=== PATIENT | female | born 1970 | race African-American/Black ===

== ENCOUNTER → 2016-04-21 | Outpatient (CLI) | payer MEDICARE, OTHER ==
[2016-04-21 13:13] LABS: ALT 39 U/L (9-52); AST 25 U/L (14-36); Alkaline Phosphatase 142 U/L (38-126); Anion Gap 11 mmol/L; Blood Urea Nitrogen 11 mg/dL (7-17); Calcium 9.6 mg/dL (8.4-10.2); Carbon Dioxide 23 mmol/L (22-30); Chloride 105 mmol/L (98-107); Glucose 162 mg/dL (74-99); Non-African American GFR(MDRD) >60 (>60 ml/min/1.73 sqM); Potassium 4.5 mmol/L (3.5-5.1); Sodium 139 mmol/L (137-145); Total Bilirubin 0.7 mg/dL (0.2-1.3); Total Protein 7.3 g/dL (6.3-8.2)
[2016-04-21 13:23] LABS: CH 28.9; CHCM 31.2; HCT 46.4 % (34.0-46.0); HDW 2.48; HGB 13.9 gm/dL (11.4-16.0); Hypochromasia Slight; MCH 27.9 pg (25.0-35.0); Mean Platelet Volume 8.7; RBC 4.99 m/uL (3.80-5.40); WBC 10.3 k/uL (3.8-10.6)
--- NOTE | 2016-04-21 14:24 | XR ---
EXAMINATION TYPE: XR chest 2V DATE OF EXAM: 04/21/2016 2:13 PM COMPARISON: 03/26/2014 HISTORY: CHF FINDINGS: The lungs are clear and there is no pneumothorax, pleural effusion, or focal pneumonia. Heart is enl arged. No overt failure. Mild hypertrophic change of the spine. IMPRESSION: 1. No acute process.
== END | disposition home or self-care (01) ==
LOC: LABWHC1 12:20
PROVIDERS: ATTEND Internal Medicine Cardiovascular Disease
DX: I10 Essential (primary) hypertension (principal); R06.02 Shortness of breath
CPT/HCPCS: 36415; 71020; 80053; 83704; 83880; 84439; 84443; 85027

== ENCOUNTER → 2016-04-21 | Outpatient (CLI) | payer MEDICARE, OTHER ==
--- NOTE | 2016-04-21 18:16 | WWHP ---
DATE OF DICTATION: 04/21/2016 CHIEF COMPLAINT: The patient is here for her routine gynecologic exam and mammogram. HISTORY OF PRESENT ILLNESS: This is a 46-year-old G1, P1 with an LMP of 2011. She is status post endometrial ablation in 2011 and states she has been without periods since then. She states that even though she has been amenorrheic, she still has pains that seem to occur about monthly, like her menstrual pains of the past. She has tried Pamprin and Midol. She states they feel about the same as the pains she had prior to the ablation. PAST MEDICAL HISTORY: 1. Rheumatoid arthritis. 2. Fibromyalgia. 3. Congestive heart failure. 4. Chronic hypertension. 5. Type 2 diabetes. 6. Elevated cholesterol. 7. Neuropathy; this involves the knees. 8. Degenerative disc disease of the back and neck. 9. Depression. 10. Anxiety. 11. Thyroid problems. Dr. Romo is her primary care physician. MEDICATIONS: 1. Flexeril 10 mg daily. 2. Lyrica 100 mg b.i.d. 3. Furosemide 20 mg daily. 4. Enalapril 5 mg daily. 5. Prednisone 10 mg b.i.d. 6. Carvedilol 6.25 mg b.i.d. ALLERGIES: TETRACYCLINE, which caused a rash. PAST SURGICAL HISTORY: 1. Endometrial ablation in 2011. 2. Laparoscopic oophorectomy in 2011. PAST OB HISTORY: Vaginal delivery x1. 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 She has no other history of STDs. She has been amenorrheic since her endometrial ablation in 2011. SOCIAL HISTORY: She admits to smoking about 8 cigarettes per day and denies drug and alcohol use. She is single. She broke up with her boyfriend in March 2016 and is not seeing anybody at this time. She is considered disabled. FAMILY HISTORY: Grandmother had breast cancer. Father had gastric cancer. Mother and grandmother had [place]. Several family members have elevated cholesterol, thyroid problems and heart disease. REVIEW OF SYSTEMS: She states her weight has fluctuated by about +/- 5 pounds over the past several months. She states she previously weighed 187 pounds but has gained weight over the last 2 years. She denies respiratory, cardiac or GI problems. PHYSICAL EXAM: Blood pressure 138/89. Height 5 feet 9 inches. Weight 224 pounds. Temperature 98.2. Pulse 92. This is a well-developed, heavyset black female who is alert and oriented x3, in no acute distress. HEENT is within normal limits. NECK: Supple without mass or thyromegaly. CHEST AND LUNGS: Clear to auscultation. HEART: Regular rate and rhythm. Breasts are without mass or discharge. Axillary exam is negative for adenopathy. BACK: Negative for CVA tenderness. ABDOMEN: Obese, soft, nontender, without palpable masses. PELVIC EXAM: Normal external genitalia. Vagina appears fairly well-estrogenized without lesions. The cervix is not discretely visualized even with a larger speculum. There is a dimple in the back of the vagina which was thought to possibly represent an atrophic cervix or a cervix that had previous conization, although she denies any surgery on her cervix. She also denies hysterectomy. There is no unusual discharge and no significant prolapse. BIMANUAL EXAM: The cervix is not palpable and the uterus is not palpable. This seems to be somewhat limited secondary to her size. There is mild tenderness in the area of the bladder with bimanual examination. There are no palpable masses in this area. There is no significant tenderness to the adnexal areas on the side. Rectovaginal exam is negative for mass or tenderness and is negative for occult blood. EXTREMITIES: Nontender. IMPRESSION: 1. A 46-year-old female with a history of amenorrhea since her endometrial ablation in 2011. 2. Limited pelvic exam with either poor visualization of the cervix or possible abnormal appearance of cervix, which may be flush with the back of the vagina secondary to some type of previous procedure. 3. Non-palpable uterus. This may be secondary to her size. 4. Pelvic pain which is cyclic and pelvic tenderness in the area of the bladder. PLAN: 1. Pap smear was performed from the dimple in the back of the vagina which was felt to possibly represent the cervix. 2. Self breast examination was discussed. 3. Mammogram will be done today. 4. Pelvic ultrasound will be scheduled to further evaluate her pelvic pain and tenderness and to see if the uterus is visualized and its position. If no uterus is visualized, we will obtain her operative report from her endometrial ablation to see if anything else was done at that time. 5. Anaprox DS one p.o. b.i.d. p.r.n. for pelvic pains. 6. If she is having significant pelvic monthly pains, we will consider referring her back to her original property worker who did her ablation for further evaluation. 7. She will return in one year and p.r.n.
--- NOTE | 2016-04-23 10:15 | MM ---
Reason for exam: screening (asymptomatic). Last mammogram was performed 3 years and 8 months ago. History: Family history of breast cancer in maternal grandmother at age 86. Took hormonal contraceptives for 6 years beginning at age 18. Physical Findings: A clinical breast exam by your physician is recommended on an annual basis and results should be correlated with mammographic findings. MG 3D Screening Mammo W/Cad Bilateral CC and MLO view(s) were taken. Prior study comparison: August 05, 2012, bilateral digital screening mammo w/CAD. July 29, 2011, bilateral digital screening mammo w/CAD. There are scattered fibroglandular densities. No significant changes when compared with prior studies. ASSESSMENT: Benign, BI-RAD 2 RECOMMENDATION: Routine screening mammogram of both breasts in 1 year.
--- NOTE | 2016-05-06 07:14 | WWPLE ---
May 05, 2016 RE: Tamera Levi Dear Dr. Romo; I had the pleasure of seeing your patient, Tamera Levi in the office on 04/21/2016. As you know, she is a 46-year-old female who presented to see me for her routine gynecologic exam. She has been amenorrheic since an endometrial ablation in 2011. Her gynecologic exam was somewhat limited in that I was not able to palpate a uterus. This may be secondary to her size since she is overweight. She will be undergoing a pelvic ultrasound to further evaluate her and some cyclic pelvic pain that she has experienced in the area of the bladder. Pap smear was negative but did show a shift in the vaginal venkata. She denies any symptoms of bacterial vaginosis at this time. Her mammogram was benign. Thank you for allowing me to participate in the care of your patient. Please do not hesitate to call if you have any questions. Sincerely, Evon Moreau. PAMELA
== END | disposition home or self-care (01) ==
LOC: WWCWWP 12:35
PROVIDERS: ATTEND Obstetrics & Gynecology
DX: Z12.31 Encounter for screening mammogram for malignant neoplasm of breast (principal)
CPT/HCPCS: 77063; G0202

== ENCOUNTER → 2016-05-14 | Outpatient (CLI) | payer MEDICARE, OTHER ==
--- NOTE | 2016-05-14 08:54 | MR ---
PRE AND POSTCONTRAST ENHANCED MRI OF THE BRAIN: CLINICAL HISTORY: R43.0 parageusia, lost sense of taste, CONTRAST: 20 ML Multihance Multiplanar and multispin-echo imaging of the brain was performed both before and after the administr ation of contrast. The ventricles, basal cisterns and sulci overlying the cerebral convexities are within normal limits. There is no evidence for midline shift or mass effect. Acute intracranial hemorrhage or extra-axial collection is not evident. Noted are scattered nonspecific foci of increased signal within the deep and subcortical white matter of both cerebral hemispheres estimated at between 15 and 20 bilaterally. Differential diagnosis poss ibilities include Demyelinating process, sequela of chronic migraine headaches, Lyme's disease, vascu litis among other possibilities. Correlate clinically. Following contrast administration, there is no evidence for pathologic enhancement or enhancing mass. mastoid air cells are well-aerated.Moderate opacification right maxillary sinus. IMPRESSION: 1. Nonspecific scattered foci of increased signal as discussed. 2. Moderate opacification right maxillary sinus.
== END | disposition home or self-care (01) ==
LOC: RADMRIMAIN 07:34
PROVIDERS: ATTEND Otolaryngology
DX: J34.89 Other specified disorders of nose and nasal sinuses (principal); R43.2 Parageusia
CPT/HCPCS: 70553; A9577

== ENCOUNTER → 2016-05-25 | Outpatient (CLI) | payer MEDICARE, OTHER ==
--- NOTE | 2016-05-25 09:54 | US ---
EXAMINATION TYPE: US pelvis complete transvag DATE OF EXAM: 05/25/2016 9:26 AM COMPARISON: Previous study dated 11/03/2011. CLINICAL HISTORY: R10.2 Pelvic pain. Ablation 2011, history of uterine fibroid TECHNIQUE: Transvaginal (TV) and Transabdominal (TA) Date of LMP: 2011 EXAM MEASUREMENTS: Uterus: unable to visualize Endometrial Stripe: unable to visualize Right Ovary: unable to visualize Left Ovary: unable to visualize TECHNOLOGIST IMPRESSION: 1. Uterus: unable to visualize, patient denies hysterectomy vaginal cuff = 1.1cm 2. Endometrium: unable to visualize 3. Right Ovary: unable to visualize 4. Left Ovary: unable to visualize 5. Bilateral Adnexa: appears wnl No cystic or solid lesion is seen. IMPRESSION: The uterus and ovaries are not visualized. The patient denies hysterectomy. Please correlate clinical ly.
== END | disposition home or self-care (01) ==
LOC: RADUSWWP 08:57
PROVIDERS: ATTEND Obstetrics & Gynecology
DX: R10.2 Pelvic and perineal pain (principal)
CPT/HCPCS: 76830; 76856

== ENCOUNTER 2016-09-18 09:13 | Day surgery (SDC) | payer MEDICARE, OTHER ==
[2016-09-10 14:03] VITALS: BMI 36.9
[~2016-09-18 09:13] MED LIST: LACTATED RINGERS 1,000 ML IV SCH; LIDOCAINE 1% 20 ML VIAL (10MG/ML) FOR IV START INTRADERMA PRN
[2016-09-18 09:56] VITALS: RESP 18; TEMP 98
[2016-09-18] MEDS ORDERED: LACTATED RINGERS 1,000 ML IV ONE (09:58)
[2016-09-18 10:04] LABS: Glucose,Whole Blood 126 mg/dL (75-99)
[2016-09-18] MEDS ORDERED: PROPOFOL 10 MG/ML 20 ML VIAL IV ONE (10:12)
[2016-09-18] MEDS ORDERED: LIDOCAINE 1% INJ 10MG/ML (20 ML MDV) ONE (10:12)
--- NOTE | 2016-09-18 10:25 | P.PCN ---
Date of Procedure: 09/18/16 Preoperative Diagnosis: Postoperative Diagnosis: Procedure(s) Performed: BRIEF HISTORY: Patient is a 46-year-old, pleasant, female, scheduled for an upper endoscopy as a part of evaluation of long-standing history of GERD of several years duration. Presently on Protonix 40 mg daily and is doing good. She is scheduled for an upper endoscopy to rule out complicated reflux disease. PROCEDURE PERFORMED: Esophagogastroduodenoscopy with biopsy. PREOPERATIVE DIAGNOSIS: Long-standing history of GERD. IV sedation per anesthesia. PROCEDURE: After informed consent was obtained, the patient was brought into the endoscopy unit. IV sedation was administered by Anesthesia under continuous monitoring. Initially the Olympus GIF-140 video endoscope was inserted into the mouth. Esophagus intubated without any difficulty. It was gradually advanced into the stomach and duodenum and carefully examined. The bulb had scattered erosions and the second part of the duodenum appeared normal. The scope at this time was withdrawn to the stomach, adequately insufflated with air, and upon careful examination, mucosa of the antrum, had linear areas of erythema consistent with gastritis and biopsies were done from this area. The body, cardia and the fundus appeared normal. The scope was then withdrawn into the esophagus. The GE junction was located at 39 cm from the incisors. The esophagus appeared normal. There were no erosions or ulcerations seen and the patient tolerated the procedure well. IMPRESSION: 1. Mild antral gastritis. 2. Scattered erosions in the duodenum consistent with duodenitis. RECOMMENDATIONS: The findings of this examination were discussed with the patient as well as her family. She was advised to continue with Protonix 40 mg daily and follow antireflux measures.. Implants: Indications for Procedure: Operative Findings: Description of Procedure:
[2016-09-18 10:59] VITALS: BP 122/80; PULSE 78
[2016-09-18 11:21] LABS: Glucose,Whole Blood 137 mg/dL (75-99)
== END 2016-09-18 11:15 | disposition home or self-care (01) ==
LOC: ORWHC2ENDO 09:13
PROVIDERS: ATTEND Internal Medicine Gastroenterology
DX: K21.0 Gastro-esophageal reflux disease with esophagitis (principal); M06.9 Rheumatoid arthritis, unspecified; K29.50 Unspecified chronic gastritis without bleeding; K29.80 Duodenitis without bleeding; I50.9 Heart failure, unspecified; I10 Essential (primary) hypertension; E11.9 Type 2 diabetes mellitus without complications; Z79.899 Other long term (current) drug therapy; Z79.1 Long term (current) use of non-steroidal anti-inflammatories (NSAID); Z79.891 Long term (current) use of opiate analgesic
CPT/HCPCS: 88305; 88342; 43239; J2001; J2704

== ENCOUNTER → 2017-06-01 | Outpatient (CLI) | payer MEDICARE, OTHER ==
[2017-06-01 19:29] LABS: Hepatitis B Surface AB- Quant 3.5 mIU/mL; Hepatitis C IgG Antibody Non-Reactive (Non-Reactive)
[2017-06-01 20:34] LABS: HIV AB P24 Non-Reactive (Non-Reactive); HIV P24 AG Non-Reactive (Non-Reactive)
--- NOTE | 2017-06-01 21:51 | WWHP ---
[facility] - HISTORY AND PHYSICAL DATE OF SERVICE: 06/01/2017 Please have a copy sent to Dr. Kerr. CHIEF COMPLAINT: The patient is here for her routine gynecologic exam and mammogram. HPI: This is a 47-year-old, G1, P1 with an LMP of 2011. She is status post [facility] for benign reasons. The patient does have occasional pelvic cramping, but this has improved with Motrin as directed. She states she has used the Motrin infrequently p.r.n. She is complaining of a slight vaginal odor x1 month. She notices this when she uses the bathroom. She denies any significant discharge. She has not been sexually active for about 1 year. She is requesting STD screening. PAST MEDICAL HISTORY: Rheumatoid arthritis, fibromyalgia, congestive heart failure, chronic hypertension, type 2 diabetes, neuropathy involving the knees, degenerative disc disease of the back and neck, depression, anxiety, and thyroid problems. MEDICATIONS: Coreg 1 daily, Lyrica 100 mg b.i.d., Furosemide 20 mg daily, enalapril 5 mg daily, Carvedilol 6.25 mg b.i.d., Humira injections every 2 weeks. ALLERGIES: TO TETRACYCLINE, WHICH CAUSED A RASH. PAST SURGICAL HISTORY: Endometrial ablation 2011, laparoscopic oophorectomy 2011 and TLH 2012. 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 She has no other history of STDs. She is status post [facility] for benign reasons. SOCIAL HISTORY: She admits to smoking 5-7 cigarettes per day and denies alcohol and drug use. She is single and has not been sexually active since approximately early 2016. She is not seeing anybody at this time and is considered disabled. FAMILY HISTORY: Grandmother had breast cancer. Father had gastric cancer. Mother and grandmother had an [place]. REVIEW OF SYSTEMS: She has lost 3 pounds over the last year. She denies respiratory, cardiac or GI problems. PHYSICAL EXAM: Blood pressure 126/93, height 5 feet 8 inches, weight 221 pounds. BMI 33. Temperature 98.7, pulse 59. This is a well-developed, well-nourished Black female who is alert and oriented x3, in no acute distress. HEENT: Within normal limits. NECK: Supple without mass or thyromegaly. Chest and LUNGS: Clear to auscultation. HEART: Regular rate and rhythm. Breasts are without mass or discharge. Axillary exam is negative for adenopathy. Back negative for CVA tenderness. ABDOMEN: Soft, nontender, without palpable masses. Pelvic exam external genitalia appears normal without significant atrophy. Vagina reveals small amount of thin grayish discharge with slight odor. The vaginal tissue appears normal and without significant atrophy. There is no evidence of prolapse. Bimanual exam is negative for mass or tenderness. Her rectal exam is negative for mass or tenderness and is negative for occult blood. EXTREMITIES: Nontender. Saline wet shu reveals positive clue cells and is negative for Trichomonas. IMPRESSION: 1. 47-year-old female who is status post hysterectomy for benign reasons. 2. Bacterial vaginosis, which is symptomatic. PLAN: 1. Pap smears have been discontinued. 2. Self breast examination was discussed. 3. Screening mammogram will be done today. 4. Metronidazole 500 mg b.i.d. x7 days. 5. The patient is requesting STD screening. GC and chlamydia testing have been obtained from the vagina. Blood tests will include HIV, hepatitis B surface antigen, hepatitis C antibody and RPR. 6. Motrin 800 mg t.i.d. p.r.n. for pelvic cramps. 7. She will return in 1 year. MMODL / IJN: [id number] /
[2017-06-02 16:13] LABS: C. trachomatis,PCR Negative (Neg,Equiv); Chlamydia trachomatis Source Cervix; N. gonorrhoeae,PCR Negative (Neg,Equiv); Neisseria Source Cervix
--- NOTE | 2017-06-03 08:52 | MM ---
Reason for exam: screening (asymptomatic). Last mammogram was performed 1 year and 1 month ago. History: Family history of breast cancer in maternal grandmother at age 86. Took hormonal contraceptives for 6 years beginning at age 18. Physical Findings: A clinical breast exam by your physician is recommended on an annual basis and results should be correlated with mammographic findings. MG 3D Screening Mammo W/Cad Bilateral CC and MLO view(s) were taken. Prior study comparison: April 21, 2016, bilateral MG 3d screening mammo w/cad. August 05, 2012, bilateral digital screening mammo w/CAD. There are scattered fibroglandular densities. Tiny 3mm circumscribed nodule upper outer quadrant left breast is new but has benign features. A 6 month follow up recommended. ASSESSMENT: Probably benign, BI-RAD 3 RECOMMENDATION: Follow-up diagnostic mammogram of the left breast in 6 months.
== END ==
LOC: WWCWWP 10:30
PROVIDERS: ATTEND Obstetrics & Gynecology
DX: Z12.31 Encounter for screening mammogram for malignant neoplasm of breast (principal)
CPT/HCPCS: 36415; 77063; 77067; 86706; 86780; 86803; 87390; 87491; 87591

== ENCOUNTER → 2017-12-28 | Outpatient (CLI) | payer MEDICARE, OTHER ==
[2017-12-28 16:03] VITALS: BP 92/65; PULSE 79; TEMP 98.4; BMI 32.1
--- NOTE | 2017-12-28 16:13 | P.PN ---
Progress Note - Text Progress Note Date: 12/28/17 Chief complaint: vulvar dryness and small lumps at the vaginal opening. HPI: this is a 47-year-old with an LMP of 2011. She is status post [facility] for benign reasons. The patient has noticed some small lumps in the lips around the vaginal opening. When she has noticed the small bumps, she states she has squeezed them and a small amount of possible blood have come out. She states she no longer feels them at this time. She has noticed the vulvar tissue has felt leather drier and has noticed that bathroom tissue seems to stick to this dryer area. She has not been sexually active for the past 2 months. She has been experiencing some hot flashes in sweats including sweating palms and soles of her feet. The patient is also doing a diagnostic left mammogram today. She would also like to have her blood drawn for hepatitis B screening. This was supposed to have been done at the time of her annual examination, but hepatitis B surface antibody was done instead of hepatitis B surface antigen. Review of systems: she denies respiratory, cardiac, or G.I. problems. Physical exam blood pressure 92/65, height 5'8", weight 211 pounds, temperature 98.4, pulse 79. This is a well-developed well-nourished black female who is alert and oriented times 3 in no acute distress. External genitalia appears normal with mild atrophy. There are no lesions. There are no palpable masses within the Vulva. The vulva is nontender. Impression: 1. 47-year-old perimenopausal female status post TLH. 2. Probable menopausal type symptoms including genital atrophy, vaginal dryness , vasomotor symptoms and sweats. 3. The vulvar lumps that she described may have represented small vulvar inclusion cysts or small boils which she squeezed that caused small drainage and small bleeding. Currently there are no lumps visible or palpable. 4. Previous abnormal left mammogram requiring a left diagnostic mammogram. 5. Incomplete STD screening since the hepatitis B antibody may not screen adequately for active hepatitis B infection. Plan: 1. I have reassured the patient about some of the menopausal type symptoms that she is experiencing. 2. I have recommended that she avoid squeezing in a lumps that she finds in the vulvar and axillary regions. I have recommended that she is warm to hot compresses and Neosporin if she notices these small lumps. She should try to avoid squeezing with her fingers which may increase the risk for infection. She can return his the lumps are bothering her again. If vaginal or vulvar dryness is bothersome, we can consider estrogen cream. 3. Diagnostic left mammogram will be done today. 4. Hepatitis B surface antigen will be drawn today. 5. She will return in approximate 6 months for her annual examination. Total times from the patient 20 minutes.
--- NOTE | 2017-12-29 08:48 | MM ---
Reason for exam: follow-up at short interval from prior study. Last mammogram was performed 7 months ago. History: Family history of breast cancer in maternal grandmother at age 86. Took hormonal contraceptives for 6 years beginning at age 18. Physical Findings: Nurse did not find any significant physical abnormalities on exam. MG 3D Diag Mammo W/Cad LT CC and MLO view(s) were taken of the left breast. Prior study comparison: June 01, 2017, bilateral MG 3d screening mammo w/cad. April 21, 2016, bilateral MG 3d screening mammo w/cad. There are scattered fibroglandular densities. The previous lateral nodularity has resolved. No significant new findings when compared with previous films. These results were verbally communicated with the patient and result sheet given to the patient on 12/28/17. ASSESSMENT: Negative, BI-RAD 1 RECOMMENDATION: Return to routine screening mammogram schedule for both breasts. Back on schedule.
--- NOTE | 2017-12-29 14:10 | P.PN ---
Progress Note - Text Progress Note Date: 12/29/17 The patient has requested a prescription for estrogen cream for the vaginal dryness. A prescription for Premarin vaginal cream, one tube, 1 g intravaginally 2 times weekly with 2 refills will be sent to [facility]. Her unilateral diagnostic mammogram was benign.
== END | disposition home or self-care (01) ==
LOC: WWCWWP 15:16
PROVIDERS: ATTEND Obstetrics & Gynecology
DX: R92.8 Other abnormal and inconclusive findings on diagnostic imaging of breast (principal); I10 Essential (primary) hypertension; Z11.3 Encounter for screening for infections with a predominantly sexual mode of transmission
CPT/HCPCS: 87340; 83704; 77065; G0279; 77061

== ENCOUNTER 2018-02-09 20:45 | Inpatient (IN) | payer MEDICARE, OTHER ==
[2018-02-09] MEDS ORDERED: SODIUM CHLORIDE 0.9% 1,000 ML IV STA ×2 (21:13)
[2018-02-09 21:29] LABS: Basophils % (A) 0 %; Eosinophils # (A) 0.3 k/uL (0-0.7); Eosinophils % (A) 4 %; HCT 41.3 % (34.0-46.0); HGB 12.4 gm/dL (11.4-16.0); Hypochromasia Slight; Lymphocytes # (A) 2.4 k/uL (1.0-4.8); Lymphocytes % (A) 33 %; MCH 27.3 pg (25.0-35.0); MCHC 30.1 g/dL (31.0-37.0); MCV 90.7 fL (80.0-100.0); Mean Platelet Volume 7.4; Monocytes # (A) 0.3 k/uL (0-1.0); Monocytes % (A) 4 %; Neutrophils # (A) 4.3 k/uL (1.3-7.7); Neutrophils % (A) 57 %; Platelet Count 306 k/uL (150-450); RBC 4.55 m/uL (3.80-5.40); RDW 14.8 % (11.5-15.5); WBC 7.4 k/uL (3.8-10.6)
[2018-02-09 21:38] LABS: Creatine Kinase 124 U/L (30-135); INR 1.1 (<1.2); Partial Thromboplastin Time 22.6 sec (22.0-30.0); Prothrombin Time 10.6 sec (9.0-12.0)
[2018-02-09 21:40] LABS: Albumin 3.5 g/dL (3.5-5.0); Anion Gap 8 mmol/L; Blood Urea Nitrogen 10 mg/dL (7-17); Calcium 9.3 mg/dL (8.4-10.2); Carbon Dioxide 21 mmol/L (22-30); Chloride 109 mmol/L (98-107); Glucose 101 mg/dL (74-99); Sodium 138 mmol/L (137-145); Total Bilirubin 0.8 mg/dL (0.2-1.3)
[2018-02-09 21:43] LABS: ALT 15 U/L (9-52); AST 27 U/L (14-36); Alkaline Phosphatase 81 U/L (38-126); Magnesium 1.7 mg/dL (1.6-2.3); Potassium 4.2 mmol/L (3.5-5.1)
--- NOTE | 2018-02-09 21:51 | XR ---
EXAMINATION TYPE: XR chest 2V DATE OF EXAM: 02/09/2018 COMPARISON: 04/21/2016 HISTORY: Chest pain TECHNIQUE: Frontal and lateral views of the chest are obtained. FINDINGS: Heart is top normal in size. Mediastinum is normal.. Lungs are clear. Diaphragm is normal. Bony thorax appears normal. IMPRESSION: Borderline cardiomegaly. Heart appears increased slightly compared to old exam.
[2018-02-09 21:52] LABS: Creatine Kinase MB 0.5 ng/mL (0.0-2.4); Troponin I <0.012 ng/mL (0.000-0.034)
--- NOTE | 2018-02-09 22:20 | ED ---
Chest Pain HPI - General Source: patient, EMS, RN notes reviewed, old records reviewed Mode of arrival: EMS Limitations: no limitations <Claudia Lam - Last Filed: 02/10/18 02:23> <Trinity Pillai - Last Filed: 02/10/18 06:41> - General Chief Complaint: Chest Pain Stated Complaint: Chest pain Time Seen by Provider: 02/09/18 20:58 - History of Present Illness Initial Comments: Patient is a 48-year-old female with history of heart failure diabetes DVTs, GERD and reflux and hypertension presents return today with chest pain, substernal in nature. She rates it an 8 out of 10. She does report associated shortness of breath. She denies cough. She denies any nausea or vomiting. She also complains of bilateral leg pain. Patient arrived emergency department today with her daughter, via EMS. He was given aspirin and nitro in route. She reports little relief after nitro. (Claudia Lam) - Related Data Home Medications Medication Instructions Recorded Confirmed Enalapril [Vasotec] 20 mg PO BID 09/10/16 02/10/18 Furosemide [Lasix] 20 mg PO DAILY 09/10/16 02/10/18 Pantoprazole Sodium [Protonix] 40 mg PO DAILY 09/10/16 02/10/18 Pregabalin [Lyrica] 150 mg PO BID 09/10/16 02/10/18 amLODIPine [Norvasc] 10 mg PO DAILY 09/10/16 02/10/18 traMADol HCL [Ultram] 50 mg PO Q6H PRN 09/10/16 02/10/18 Atorvastatin [Lipitor] 40 mg PO DAILY 02/09/18 02/10/18 Carvedilol [Coreg] 12.5 mg PO BID 02/09/18 02/10/18 Ibuprofen [Motrin] 800 mg PO BID 02/09/18 02/10/18 Mirtazapine [Remeron] 15 mg PO HS 02/09/18 02/10/18 traZODone HCL 100 mg PO HS 02/09/18 02/10/18 Allergies Allergy/AdvReac Type Severity Reaction Status Date / Time No Known Allergies Allergy Verified 02/10/18 04:52 Review of Systems ROS Other: All systems not noted in ROS Statement are negative. <Claudia Lam - Last Filed: 02/10/18 02:23> ROS Other: All systems not noted in ROS Statement are negative. <Trinity Pillai Aydee - Last Filed: 02/10/18 06:41> ROS Statement: Those systems with pertinent positive or pertinent negative responses have been documented in the HPI. EKG Findings - EKG Comments: EKG Findings:: EKG shows normal sinus rhythm with sinus arrhythmia. Nonspecific T-wave abnormality. Abnormal EKG noted. Ventricular rate 76 bpm. OH interval is 170 ms. QRS duration 84 ms. QT QTc is 372/418 ms. <Claudia Lam - Last Filed: 02/10/18 02:23> Past Medical History Past Medical History: Heart Failure, Diabetes Mellitus, Deep Vein Thrombosis ( DVT), Fibromyalgia, GERD/Reflux, Hypertension, Rheumatoid Arthritis (RA) Additional Past Medical History / Comment(s): states diet controlled diabetic, HERNIATED DISCS, SCIATIC NERVE PAIN, NEUROPATHY, YEAST INFECTION UNDER BREASTS History of Any Multi-Drug Resistant Organisms: None Reported Past Surgical History: Hysterectomy Past Anesthesia/Blood Transfusion Reactions: No Reported Reaction Past Psychological History: Depression Smoking Status: Current every day smoker Past Alcohol Use History: None Reported Past Drug Use History: None Reported - Past Family History Mother Family Medical History: Congestive Heart Failure (CHF), Hyperlipidemia, Hypertension <Claudia Lam - Last Filed: 02/10/18 02:23> General Exam Limitations: no limitations General appearance: alert, in no apparent distress Head exam: Present: atraumatic, normocephalic, normal inspection Eye exam: Present: normal appearance, PERRL, EOMI. Absent: scleral icterus, conjunctival injection, periorbital swelling ENT exam: Present: normal exam, mucous membranes moist Neck exam: Present: normal inspection. Absent: tenderness, meningismus, lymphadenopathy Respiratory exam: Present: normal lung sounds bilaterally. Absent: respiratory distress, wheezes, rales, rhonchi, stridor Cardiovascular Exam: Present: regular rate, normal rhythm, normal heart sounds. Absent: systolic murmur, diastolic murmur, rubs, gallop, clicks GI/Abdominal exam: Present: soft, normal bowel sounds. Absent: distended, tenderness, guarding, rebound, rigid Extremities exam: Present: normal inspection, full ROM, normal capillary refill. Absent: tenderness, pedal edema, joint swelling, calf tenderness Back exam: Present: normal inspection Neurological exam: Present: alert, oriented X3, CN II-XII intact <Claudia Lam - Last Filed: 02/10/18 02:23> <Trinity Pillai - Last Filed: 02/10/18 06:41> - General Exam Comments Initial Comments: 48-year-old obese -[place] female. (Claudia Lam) Vital Signs 02/09/18 02/09/18 02/09/18 20:56 20:57 21:00 Temperature 98.8 F Pulse Rate 99 85 Respiratory 20 Rate Blood Pressure 128/80 128/80 O2 Sat by Pulse 99 98 Oximetry 02/09/18 02/09/18 02/09/18 21:10 21:20 21:30 Temperature Pulse Rate 81 74 74 Respiratory Rate Blood Pressure 121/76 121/76 121/76 O2 Sat by Pulse 100 100 100 Oximetry 02/09/18 02/09/18 02/09/18 21:40 21:50 22:00 Temperature Pulse Rate 71 70 64 Respiratory 16 Rate Blood Pressure 122/84 122/84 122/84 O2 Sat by Pulse 100 100 Oximetry 02/09/18 02/09/18 02/09/18 22:01 22:10 22:20 Temperature Pulse Rate 74 67 64 Respiratory 20 Rate Blood Pressure 114/56 114/72 114/72 O2 Sat by Pulse 99 100 100 Oximetry 02/09/18 02/09/18 02/09/18 22:30 22:40 22:50 Temperature Pulse Rate 71 Respiratory Rate Blood Pressure 114/72 124/75 124/75 O2 Sat by Pulse 100 Oximetry 02/09/18 02/09/18 02/09/18 23:00 23:10 23:20 Temperature Pulse Rate 71 64 70 Respiratory 20 Rate Blood Pressure 124/75 131/96 131/96 O2 Sat by Pulse 100 100 100 Oximetry 02/09/18 02/09/18 02/09/18 23:30 23:40 23:50 Temperature Pulse Rate 73 75 72 Respiratory Rate Blood Pressure 131/96 141/90 141/90 O2 Sat by Pulse 100 Oximetry 02/10/18 02/10/18 02/10/18 00:00 00:10 00:20 Temperature Pulse Rate 75 63 79 Respiratory Rate Blood Pressure 141/90 141/78 141/78 O2 Sat by Pulse Oximetry 02/10/18 02/10/18 02/10/18 00:30 00:40 00:50 Temperature Pulse Rate 68 70 77 Respiratory Rate Blood Pressure 141/78 O2 Sat by Pulse Oximetry 02/10/18 02/10/18 02/10/18 01:00 01:10 01:20 Temperature Pulse Rate 70 71 77 Respiratory Rate Blood Pressure O2 Sat by Pulse Oximetry 02/10/18 02/10/18 02/10/18 01:30 01:40 01:50 Temperature Pulse Rate 62 74 61 Respiratory Rate Blood Pressure O2 Sat by Pulse Oximetry 02/10/18 02/10/18 02/10/18 02:00 02:10 02:20 Temperature Pulse Rate 67 59 L 93 Respiratory Rate Blood Pressure O2 Sat by Pulse Oximetry 02/10/18 02/10/18 02:30 04:00 Temperature Pulse Rate 58 L Respiratory 18 Rate Blood Pressure O2 Sat by Pulse Oximetry Chest Pain MDM <Claudia Lam - Last Filed: 02/10/18 02:23> <Trinity Pillai - Last Filed: 02/10/18 06:41> - MDM 48-year-old female with hypertension, diabetes presenting today with chest pain. She does have some EKG changes with inverted T waves in lead 3 and 4. Is new compared old previous EKGs. This time Patient also has an elevated d- dimer. Initial troponin is negative. CT of her chest was negative for PE. We also to complete ultrasound of bilateral lower extremities due to pain in the elevated d-dimer. This was negative for DVT. I advised Patient with EKG changes would like to admit the Patient and start her on heparin. Patient agrees. It is also of note that while in the emergency department Patient seems to be very paranoid and at questions about HIPPA, she has some confused conversations. There is no known psychiatric history. Daughter also mentioned that she stated she felt like people are after her. Patient denies this. Possibility of psychiatric consult. Dr. Pillai discussed the case with Dr. Kerr. Recommended to heparinize the Patient. Consult to cardiology. ( Claudia Lam) I was available for consultation in the emergency department. The history and physical exam were done by the midlevel provider. I was consulted for this patient's care. I reviewed the case with the midlevel provider and based on their presentation of the patient, I agree with the assessment, medical decision making and plan of care as documented. Review the patient's case decision was made with the PA that the patient needed to be admitted for further management. Patient care was discussed with patient' s primary care physician who accepted the admission. Admission orders were placed. (Trinity Pillai) Disposition Is patient prescribed a controlled substance at d/c from ED?: No Time of Disposition: 02:26 <Claudia Lam - Last Filed: 02/10/18 02:23> <Trinity Pillai - Last Filed: 02/10/18 06:41> Clinical Impression: Chest pain, Diabetes, HTN (hypertension) Disposition: ADMITTED IP TO THIS HOSP Condition: Stable
--- NOTE | 2018-02-09 23:20 | CT ---
EXAMINATION TYPE: CT chest angio for PE DATE OF EXAM: 02/09/2018 COMPARISON: 03/20/2014 HISTORY: Chest pain and leg swelling. CT DLP: 311.5 mGycm Automated exposure control for dose reduction was used. CONTRAST: CT Chest for pulmonary embolism performed with with IV Contrast, patient injected with 100 mL of Isov ue 370. There are 3-D post processed images. FINDINGS: There is mild pulmonary emphysema. Heart size is normal. There is no pericardial effusion. There is n o pleural effusion. There is no adrenal mass. There are numerous small anterior mediastinal lymph nod es that measure less than 1 cm. There are axillary lymph nodes that measure up to 2 x 1 cm. There are a few bilateral bronchial lymph nodes up to 1 cm. There is no evidence of a pulmonary mass. There is normal contrast opacification of the thoracic aorta. There is no evidence of aneurysm or dissection. Ascending aorta measures 3.3 cm. There is normal contrast opacification of the pulmonary arteries. T here are no filling defects. The bony thorax is intact. IMPRESSION: There are a few nonspecific mediastinal and bronchial lymph nodes likely related to inflammatory dise ase. Emphysema. No evidence of pulmonary embolism.
--- NOTE | 2018-02-10 01:00 | US ---
EXAMINATION TYPE: US venous doppler duplex LE DATE OF EXAM: 02/10/2018 12:28 AM COMPARISON: NONE CLINICAL HISTORY: Pain. pain SIDE PERFORMED: Bilateral TECHNIQUE: The lower extremity deep venous system is examined utilizing real time linear array sonog miriam with graded compression, doppler sonography and color-flow sonography. VESSELS IMAGED: External Iliac Vein (EIV) Common Femoral Vein Deep Femoral Vein Greater Saphenous Vein * Femoral Vein Popliteal Vein Small Saphenous Vein * Proximal Calf Veins (* superficial vessels) Right Leg: Negative for DVT Left Leg: Negative for DVT No evidence of DVT bilateral legs. IMPRESSION: Normal exam. No evidence of deep venous thrombosis in the legs.
[2018-02-10] MEDS ORDERED: MORPHINE SULFATE 4 MG/ML SYRINGE IV PRN (02:17)
[2018-02-10] MEDS ORDERED: HEPARIN SODIUM,PORCINE 5,000 UNIT/ML 1 ML VIAL IV ONE (02:17)
[2018-02-10] MEDS ORDERED: NITROGLYCERIN SL TABS 0.4 MG TAB SUBLINGUAL PRN (02:17)
[2018-02-10] MEDS ORDERED: HEPARIN SOD,PORK IN 0.45% NACL 25,000 UNIT in 0.45% NACL 1 500ML.BAG IV SCH (02:30)
[2018-02-10 04:09] LABS: Creatine Kinase 102 U/L (30-135)
[2018-02-10 04:23] LABS: Creatine Kinase MB 0.6 ng/mL (0.0-2.4); Troponin I <0.012 ng/mL (0.000-0.034)
[2018-02-10 04:39] VITALS: BMI 29.1
[2018-02-10] MEDS ORDERED: ONDANSETRON 4 MG/2 ML VIAL IVP PRN (04:52)
[2018-02-10] MEDS ORDERED: DOBUTamine DRIP for NUC MED 500 MG in DEXTROSE/WATER 1 250ML.BAG IV ONE ×2 (08:46→13:29)
--- NOTE | 2018-02-10 10:30 | ECHOF ---
Referral Reason:chest pain MEASUREMENTS -------- HEIGHT: 175.3 cm WEIGHT: 89.4 kg BP: 154/89 IVSd: 1.7 cm (0.6 - 1.1) LVIDd: 4.1 cm (3.9 - 5.3) LVPWd: 1.4 cm (0.6 - 1.1) IVSs: 2.3 cm LVIDs: 2.1 cm LVPWs: 2.1 cm Ao Diam: 3.0 cm (2.0 - 3.7) AV Cusp: 2.1 cm (1.5 - 2.6) LA Diam: 3.6 cm (2.7 - 3.8) MV EXCURSION: 16.659 mm (> 18.000) MV EF SLOPE: 61 mm/s (70 - 150) EPSS: 0.4 cm MV E Henri: 0.71 m/s MV DecT: 216 ms MV A Henri: 0.79 m/s MV E/A Ratio: 0.90 AR PHT: 238 ms RAP: 5.00 mmHg RVSP: 11.86 mmHg FINDINGS -------- Sinus rhythm. This was a technically good study. The left ventricular size is normal. There is moderate concentric left ventricular hypertrophy. O verall left ventricular systolic function is normal with, an EF between 55 - 60 %. The right ventricle is normal in size and function. The left atrium is normal in size. The right atrium is normal in size. The aortic valve is trileaflet, and appears structurally normal. No aortic stenosis or regurgitation. There is trace mitral regurgitation. Trace tricuspid regurgitation present. The right ventricular systolic pressure, as measured by Dopp ler, is 11.86mmHg. Pulmonic valve appears structurally normal. The aortic root size is normal. Normal inferior vena cava with normal inspiratory collapse consistent with estimated right atrial pre ssure of 5 mmHg. There is a trivial pericardial effusion present. CONCLUSIONS -------- 1. Sinus rhythm. 2. This was a technically good study. 3. The left ventricular size is normal. 4. There is moderate concentric left ventricular hypertrophy. 5. Overall left ventricular systolic function is normal with, an EF between 55 - 60 %. 6. The right ventricle is normal in size and function. 7. The left atrium is normal in size. 8. The right atrium is normal in size. 9. The aortic valve is trileaflet, and appears structurally normal. No aortic stenosis or regurgitati on. 10. There is trace mitral regurgitation. 11. Trace tricuspid regurgitation present. 12. The right ventricular systolic pressure, as measured by Doppler, is 11.86mmHg. 13. Pulmonic valve appears structurally normal. 14. The aortic root size is normal. 15. Normal inferior vena cava with normal inspiratory collapse consistent with estimated right atrial pressure of 5 mmHg. 16. There is a trivial pericardial effusion present. [employer] WORKER: Juliann Briceño RDCS
--- NOTE | 2018-02-10 12:35 | P.HPIM ---
History of Present Illness H&P Date: 02/10/18 Chief Complaint: Chest pain This is a 48-year-old female with a known past medical history of depression, congestive heart failure, diet-controlled diabetes mellitus, GERD, hypertension , hyperlipidemia, fibroid myalgia and rheumatoid arthritis. Patient is a smoker. She presents to the emergency room with complaints of chest pain. Patient had associated shortness of breath. Symptoms have resolved. Patient is a poor historian. Was unable to describe exactly where the chest pain was located. Unable to tell me how old along the chest pain lasted. Patient is not very forthcoming with information. She was initially placed on IV heparin. Troponins were negative 2 sets. She did have elevated d-dimer on admission CT of the chest was negative for PE but did reveal a few nonspecific mediastinal and bronchial lymph nodes likely secondary to inflammation. Doppler of the lower extremities were negative for DVT. In the ER she had reported leg pain. At this time she is not reporting any leg pain. She was evaluated by cardiology and they had planned to proceed with a stress test for further evaluation of her chest pain. Patient refused to have stress tests completed and also is refusing the third set of cardiac enzymes. She is able to tell me she is no longer having chest pain. Echo which showed an EF of 55-60 % with moderate left ventricle hypertrophy and trivial pericardial effusion. Review of Systems Please refer to HPI otherwise unremarkable Past Medical History Past Medical History: Heart Failure, Diabetes Mellitus, Deep Vein Thrombosis ( DVT), Fibromyalgia, GERD/Reflux, Hypertension, Rheumatoid Arthritis (RA) Additional Past Medical History / Comment(s): states diet controlled diabetic, HERNIATED DISCS, SCIATIC NERVE PAIN, NEUROPATHY, YEAST INFECTION UNDER BREASTS History of Any Multi-Drug Resistant Organisms: None Reported Past Surgical History: Hysterectomy Past Anesthesia/Blood Transfusion Reactions: No Reported Reaction Smoking Status: Current every day smoker - Past Family History Mother Family Medical History: Congestive Heart Failure (CHF), Hyperlipidemia, Hypertension Medications and Allergies Home Medications Medication Instructions Recorded Confirmed Type Enalapril [Vasotec] 20 mg PO BID 09/10/16 02/10/18 History Furosemide [Lasix] 20 mg PO DAILY 09/10/16 02/10/18 History Pantoprazole Sodium [Protonix] 40 mg PO DAILY 09/10/16 02/10/18 History Pregabalin [Lyrica] 150 mg PO BID 09/10/16 02/10/18 History amLODIPine [Norvasc] 10 mg PO DAILY 09/10/16 02/10/18 History traMADol HCL [Ultram] 50 mg PO Q6H PRN 09/10/16 02/10/18 History Atorvastatin [Lipitor] 40 mg PO DAILY 02/09/18 02/10/18 History Carvedilol [Coreg] 12.5 mg PO BID 02/09/18 02/10/18 History Ibuprofen [Motrin] 800 mg PO BID 02/09/18 02/10/18 History Mirtazapine [Remeron] 15 mg PO HS 02/09/18 02/10/18 History traZODone HCL 100 mg PO HS 02/09/18 02/10/18 History Allergies Allergy/AdvReac Type Severity Reaction Status Date / Time No Known Allergies Allergy Verified 02/10/18 04:52 Physical Exam Vitals: Vital Signs Temp Pulse Pulse Resp BP BP BP 02/10/18 08:15 18 02/10/18 06:45 98.2 F 85 18 154/89 02/10/18 04:24 98.2 F 71 18 165/99 02/10/18 04:00 18 02/10/18 02:30 58 L 02/10/18 02:20 93 02/10/18 02:10 59 L 02/10/18 02:00 67 02/10/18 01:50 61 02/10/18 01:40 74 02/10/18 01:30 62 02/10/18 01:20 77 02/10/18 01:10 71 02/10/18 01:00 70 02/10/18 00:50 77 02/10/18 00:40 70 02/10/18 00:30 68 141/78 02/10/18 00:20 79 141/78 02/10/18 00:10 63 141/78 02/10/18 00:00 75 141/90 02/09/18 23:50 72 141/90 02/09/18 23:40 75 141/90 02/09/18 23:30 73 131/96 02/09/18 23:20 70 131/96 02/09/18 23:10 64 131/96 02/09/18 23:00 71 20 124/75 02/09/18 22:50 124/75 02/09/18 22:40 124/75 02/09/18 22:30 71 114/72 02/09/18 22:20 64 114/72 02/09/18 22:10 67 114/72 02/09/18 22:01 74 20 114/56 02/09/18 22:00 64 122/84 02/09/18 21:50 70 122/84 02/09/18 21:40 71 16 122/84 02/09/18 21:30 74 121/76 02/09/18 21:20 74 121/76 02/09/18 21:10 81 121/76 02/09/18 21:00 85 128/80 02/09/18 20:57 02/09/18 20:56 98.8 F 99 20 128/80 Pulse Ox 02/10/18 08:15 02/10/18 06:45 100 02/10/18 04:24 100 02/10/18 04:00 02/10/18 02:30 02/10/18 02:20 02/10/18 02:10 02/10/18 02:00 02/10/18 01:50 02/10/18 01:40 02/10/18 01:30 02/10/18 01:20 02/10/18 01:10 02/10/18 01:00 02/10/18 00:50 02/10/18 00:40 02/10/18 00:30 02/10/18 00:20 02/10/18 00:10 02/10/18 00:00 02/09/18 23:50 02/09/18 23:40 02/09/18 23:30 100 02/09/18 23:20 100 02/09/18 23:10 100 02/09/18 23:00 100 02/09/18 22:50 02/09/18 22:40 02/09/18 22:30 100 02/09/18 22:20 100 02/09/18 22:10 100 02/09/18 22:01 99 02/09/18 22:00 100 02/09/18 21:50 100 02/09/18 21:40 02/09/18 21:30 100 02/09/18 21:20 100 02/09/18 21:10 100 02/09/18 21:00 02/09/18 20:57 98 02/09/18 20:56 99 Intake and Output 02/09/18 02/10/18 02/10/18 22:59 06:59 14:59 Other: # Voids 1 Weight 89.584 kg 89.5 kg Head normocephalic Neck supple Lungs clear to auscultation bilaterally no wheezing or crackles Heart regular rate and rhythm S1-S2, no rub or gallop Abdomen is soft nontender nondistended positive bowel sounds no hepatosplenomegaly Extremities edema bilaterally present Neuro alert and orientated to 3 Results CBC & Chem 7: 02/09/18 21:03 02/09/18 21:03 Labs: Abnormal Lab Results - Last 24 Hours (Table) 02/09/18 02/09/18 02/09/18 Range/Units 21:03 21:03 21:03 MCHC 30.1 L (31.0-37.0) g/dL D-Dimer 4.18 H (<0.60) mg/L FEU Chloride 109 H (98-107) mmol/L Carbon Dioxide 21 L (22-30) mmol/L Creatinine 0.47 L (0.52-1.04) mg/dL Glucose 101 H (74-99) mg/dL Thrombosis Risk Factor Assmnt - Choose All That Apply Each Factor Represents 1 point: Age 41-60 years Thrombosis Risk Factor Assessment Total Risk Factor Score: 1 Thrombosis Risk Factor Assessment Level: Low Risk Assessment and Plan Assessment: 1. Chest pain: Troponins negative 2 sets. EKG normal sinus rhythm with inverted T waves in lead 3 and 4 noted in ER. Patient initially started on IV heparin. Patient is refusing further workup. She refused to have stress tests completed and refused the third set of cardiac enzymes to be drawn. 2. Elevated d-dimer CTA negative for PE and Dopplers are negative for DVT 3. Nonspecific mediastinal and bronchial lymph nodes likely secondary to inflammation noted on CTA of the chest 4. Nicotine dependence: Discussed smoking cessation for greater than 3 minutes. Patient refusing nicotine patch 5. Essential hypertension 6. Hyperlipidemia 7. Rheumatoid arthritis 8. Fibromyalgia Time with Patient: Greater than 30 (Greater than 60% of the total time spent in counseling and coordination of care.I performed an examination of the patient and discussed their management with the physician Pharmacist Apprentice. I have reviewed the Physician Pharmacist Apprentice's notes and agree with the documented findings and plan of care)
--- NOTE | 2018-02-10 13:03 | CONS ---
CONSULTATION CHIEF COMPLAINT: Chest pain. Tamera is a 48-year-old lady with history of hypertension, dyslipidemia, who was brought to hospital with symptoms of chest pain. She herself is a very poor historian and does not seem very sure about her symptoms. There is no prior history of coronary artery disease. She states that she sees Dr. Guzmán in my office. Her chest discomfort is sharp, precordial, unrelated to exertion, closed with diaphoresis. There is no clear radiation to neck, arm or back. At the time of my evaluation, she is chest pain-free. EKG does not reveal ischemic changes and cardiac enzymes have been negative. PAST MEDICAL HISTORY: Significant for hypertension and dyslipidemia. CURRENT MEDICATIONS: Include Ultram, Norvasc, Lyrica, Remeron, Motrin, Lasix, Vasotec, Coreg, and Lipitor. ALLERGIES: There are no known drug allergies. FAMILY HISTORY: Negative for premature coronary artery disease. SOCIAL HISTORY: Significant for smoking. There is no history of EtOH abuse or drug abuse. REVIEW OF SYSTEMS: HEENT is unremarkable. CARDIAC: As described above. RESPIRATORY: Negative. GI: Negative. GENITOURINARY: Negative. ALLERGY/IMMUNOLOGY: Negative. SKIN: Negative. MUSCULOSKELETAL: Significant for arthritis. PSYCHOSOCIAL: Negative ENDOCRINE: Negative. HEMATOLOGIC: None. DERM: Negative. CONSTITUTIONAL: Negative. ONCOLOGICAL: Negative. The rest of the system review is not relevant. PHYSICAL EXAM: Patient is comfortable at rest. Vital signs are stable. There is no jugular venous distention. Carotid upstroke is normal. There is no bruit. Chest exam reveals good air entry bilaterally. Heart exam reveals first and second heart sounds. No gallop. No murmur. No rub. Abdomen is soft, nontender. Exam of the extremities did not reveal any edema. Peripheral pulses are felt. LABS: Show that 2 sets of cardiac enzymes are negative, EKG is unremarkable. ASSESSMENT: 1. Precordial chest pain, sharp, atypical. 2. History of hypertension. 3. History of dyslipidemia. PLAN: I am going to stop the IV heparin, obtain a 2D echo to assess LV function and dobutamine echo to rule out ischemic heart disease. If this is negative, she can be discharged home. MMODL / IJN: [id number] /
[2018-02-10] MEDS ORDERED: traMADol 50 MG TAB PO PRN (13:24)
[2018-02-10] MEDS: LISINOPRIL 20 MG TAB PO SCH (19:48)
[2018-02-10] MEDS: MIRTAZAPINE 15 MG TAB PO SCH (19:48)
[2018-02-10] MEDS: CARVEDILOL 12.5 MG TAB PO SCH (19:48)
[2018-02-10] MEDS: PANTOPRAZOLE 40 MG TABLET PO SCH (19:48)
[2018-02-10] MEDS: PREGABALIN 75 MG CAP PO SCH (19:48)
[2018-02-10] MEDS: FUROSEMIDE 20 MG TAB PO SCH (19:48)
[2018-02-10] MEDS: amLODIPine 10 MG TAB PO SCH (19:48)
[2018-02-10] MEDS: traZODone HCL 100 MG TAB PO SCH (19:49)
--- NOTE | 2018-02-10 21:00 | P.CNNES ---
History of Present Illness Consult date: 02/10/18 History of Present Illness: The patient is a 48-year-old female who is a poor historian. She states she is doesn't know why she is in the hospital. She later said she came for pain but could not describe where the pain was. She states she no longer has the pain. When asked what her name was she said she didn't know. The patient has known heart disease diabetes and reflux hypertension and presented to the ER with chest pain. She came to the ER via EMS. She also complained of leg pain and had ultrasound of her lower extremities. This was negative for DVT. ER physician noted patient to be very paranoid. Her daughter also had reported that the patient had been having some paranoid ideas. The patient was admitted with chest pain diabetes and hypertension.. The patient denied any headache or focal weakness numbness or visual changes. Review of Systems ROS unobtainable: due to mental status Past Medical History Past Medical History: Heart Failure, Diabetes Mellitus, Deep Vein Thrombosis ( DVT), Fibromyalgia, GERD/Reflux, Hypertension, Rheumatoid Arthritis (RA) Additional Past Medical History / Comment(s): states diet controlled diabetic, HERNIATED DISCS, SCIATIC NERVE PAIN, NEUROPATHY, YEAST INFECTION UNDER BREASTS History of Any Multi-Drug Resistant Organisms: None Reported Past Surgical History: Hysterectomy Past Anesthesia/Blood Transfusion Reactions: No Reported Reaction Smoking Status: Current every day smoker - Past Family History Mother Family Medical History: Congestive Heart Failure (CHF), Hyperlipidemia, Hypertension Medications and Allergies Home Medications Medication Instructions Recorded Confirmed Type Enalapril [Vasotec] 20 mg PO BID 09/10/16 02/10/18 History Furosemide [Lasix] 20 mg PO DAILY 09/10/16 02/10/18 History Pantoprazole Sodium [Protonix] 40 mg PO DAILY 09/10/16 02/10/18 History Pregabalin [Lyrica] 150 mg PO BID 09/10/16 02/10/18 History amLODIPine [Norvasc] 10 mg PO DAILY 09/10/16 02/10/18 History traMADol HCL [Ultram] 50 mg PO Q6H PRN 09/10/16 02/10/18 History Atorvastatin [Lipitor] 40 mg PO DAILY 02/09/18 02/10/18 History Carvedilol [Coreg] 12.5 mg PO BID 02/09/18 02/10/18 History Ibuprofen [Motrin] 800 mg PO BID 02/09/18 02/10/18 History Mirtazapine [Remeron] 15 mg PO HS 02/09/18 02/10/18 History traZODone HCL 100 mg PO HS 02/09/18 02/10/18 History Allergies Allergy/AdvReac Type Severity Reaction Status Date / Time No Known Allergies Allergy Verified 02/10/18 04:52 Physical Examination - Vital Signs Vital Signs: Vital Signs Temp Pulse Pulse Resp BP BP BP 02/10/18 19:34 18 02/10/18 08:15 18 02/10/18 06:45 98.2 F 85 18 154/89 02/10/18 04:24 98.2 F 71 18 165/99 02/10/18 04:00 18 02/10/18 02:30 58 L 02/10/18 02:20 93 02/10/18 02:10 59 L 02/10/18 02:00 67 02/10/18 01:50 61 02/10/18 01:40 74 02/10/18 01:30 62 02/10/18 01:20 77 02/10/18 01:10 71 02/10/18 01:00 70 02/10/18 00:50 77 02/10/18 00:40 70 02/10/18 00:30 68 141/78 02/10/18 00:20 79 141/78 02/10/18 00:10 63 141/78 02/10/18 00:00 75 141/90 02/09/18 23:50 72 141/90 02/09/18 23:40 75 141/90 02/09/18 23:30 73 131/96 02/09/18 23:20 70 131/96 02/09/18 23:10 64 131/96 02/09/18 23:00 71 20 124/75 02/09/18 22:50 124/75 02/09/18 22:40 124/75 02/09/18 22:30 71 114/72 02/09/18 22:20 64 114/72 02/09/18 22:10 67 114/72 02/09/18 22:01 74 20 114/56 02/09/18 22:00 64 122/84 02/09/18 21:50 70 122/84 02/09/18 21:40 71 16 122/84 02/09/18 21:30 74 121/76 02/09/18 21:20 74 121/76 02/09/18 21:10 81 121/76 02/09/18 21:00 85 128/80 02/09/18 20:57 02/09/18 20:56 98.8 F 99 20 128/80 Pulse Ox 02/10/18 19:34 02/10/18 08:15 02/10/18 06:45 100 02/10/18 04:24 100 02/10/18 04:00 02/10/18 02:30 02/10/18 02:20 02/10/18 02:10 02/10/18 02:00 02/10/18 01:50 02/10/18 01:40 02/10/18 01:30 02/10/18 01:20 02/10/18 01:10 02/10/18 01:00 02/10/18 00:50 02/10/18 00:40 02/10/18 00:30 02/10/18 00:20 02/10/18 00:10 02/10/18 00:00 02/09/18 23:50 02/09/18 23:40 02/09/18 23:30 100 02/09/18 23:20 100 02/09/18 23:10 100 02/09/18 23:00 100 02/09/18 22:50 02/09/18 22:40 02/09/18 22:30 100 02/09/18 22:20 100 02/09/18 22:10 100 02/09/18 22:01 99 02/09/18 22:00 100 02/09/18 21:50 100 02/09/18 21:40 02/09/18 21:30 100 02/09/18 21:20 100 02/09/18 21:10 100 02/09/18 21:00 02/09/18 20:57 98 02/09/18 20:56 99 Intake and Output 02/10/18 02/10/18 02/10/18 06:59 14:59 22:59 Other: # Voids 1 1 Weight 89.5 kg - Constitutional General appearance: obese - EENT EENT: PERRL, hearing intact, vision intact - Respiratory Respiratory: lungs clear - Cardiovascular Cardiovascular: regular rate - Neurologic Neurologic examination: Mental status: She was alert awake sitting at the edge of her bed. Her speech was articulate. She had no a aphasia or dysarthria. She did not cooperate with answering questions. When asked her name she states she did not know. She asked why she is in the [facility]. Radial nerves II through XII: Grossly intact Motor examination: No focal weakness X Sensory examination: Intact to light touch Deep tendon reflexes: Symmetric Results - Laboratory Findings CBC and BMP: 02/09/18 21:03 02/09/18 21:03 Abnormal Lab Findings: Abnormal Labs 02/09/18 02/09/18 02/09/18 21:03 21:03 21:03 MCHC 30.1 L D-Dimer 4.18 H Chloride 109 H Carbon Dioxide 21 L Creatinine 0.47 L Glucose 101 H Assessment and Plan (1) Altered mental status Current Visit: No Status: Acute SNOMED Code(s): 797206518 Plan: The patient is a 48-year-old woman admitted to the hospital with history of heart failure diabetes DVT hypertension and new onset chest pain. Neurology is requested to see the patient regarding altered mental status. The patient is awake alert and seems to have some paranoid ideas. Recommend psychiatry evaluation. Will check EEG. Recommend CT brain
[2018-02-11 02:41] LABS: Cholesterol 115 mg/dL (<200); HDL Cholesterol 31 mg/dL (40-60); LDL Cholesterol,Calculated 63 mg/dL (0-99); Triglycerides 104 mg/dL (<150)
[2018-02-11] MEDS ORDERED: DOBUTamine DRIP for NUC MED 500 MG in DEXTROSE/WATER 1 250ML.BAG IV ONE (08:00)
--- NOTE | 2018-02-11 09:23 | P.CNPUL ---
History of Present Illness Consult date: 02/11/18 Requesting physician: Luis Kerr Reason for consult: chest pain Chief complaint: Nonspecific mediastinal lymph nodes History of present illness: This is a 48-year-old -Luxembourger female was brought to the emergency department on 02/09/2018 at 8 PM, for evaluation of substernal chest pain that was associated with shortness of breath. It was moderately severe in intensity , there was no nausea or vomiting. And presentation patient was also having some bilateral leg pain. Patient has past medical history of heart failure, DVTs, GERD and reflux, hypertension, diabetes mellitus, fibromyalgia, rheumatoid arthritis. She is a current every day smoker. Positive for history of depression. EKG showed normal sinus rhythm with nonspecific T-wave abnormality. Troponins were negative 2. Echocardiogram was completed and showed preserved left ventricular systolic function with an EF between 55-60%, with no evidence. With trace mitral and tricuspid regurgitation, no evidence of pulmonary hypertension. CT angios of the chest was negative for any evidence of pulmonary embolism, it showed a few nonspecific mediastinal and bronchial lymph nodes measuring up to 1 cm. Mild emphysema. Lab work did not show any leukocytosis, Erma BC 7.4, hemoglobin is 12.4, d-dimer was elevated at 4.18, sodium is 138, potassium 4.2, chloride is 109, CO2 is 21, BUN was 10, creatinine 0.47. LFTs were within normal limits. Bilateral venous Doppler ultrasounds negative for DVTs. Patient was evaluated by cardiology, and she was recommended to have a stress test however patient's mentation started changing, patient was first noted to have confused and paranoid conversations in the emergency room on presentation which became increasingly worse. Patient is now hallucinating, she is paranoid, she is refusing tests, she is refusing blood work, he is refusing to be examined. She denies any alcohol use, she denies any marijuana, cocaine, heroin or any other recreational drug use in the present or past. According to the nursing staff the daughter denies any previous psychiatric history, there is history of tramadol overdose in the past , however upon inspection of the prescription tramadol bottle, it was difficult to say how many of the pills were missing. Has removed her sheet catcher, she has urinated all over the bed, and her clothing, and she is refusing to be cleaned up or changed. She is seeing people that are not there, she thinks that my hair is purple. Neurology consultation was requested, patient has refused a brain CT or EEG. This morning she is sitting in the urine-soaked bed , she still refusing to be examined, gross visual examination was negative for any signs of distress, no shortness of breath noted, no use of accessory muscles. She is refusing to have her vitals taken. Her respirations seem to be nonlabored, nontachypneic. We're consulted in regards to the nonspecific mediastinal and bronchial lymph nodes, and these can be followed up on an outpatient basis. Review of Systems Obtained from the chart, patient is unable to provide ROS to mental status All systems: negative Constitutional: Denies chills, Denies fever Eyes: denies blurred vision, denies pain Ears, nose, mouth and throat: Denies headache, Denies sore throat Cardiovascular: Denies chest pain, Denies shortness of breath Respiratory: Denies cough Gastrointestinal: Denies abdominal pain, Denies diarrhea, Denies nausea, Denies vomiting Genitourinary: Denies dysuria, Denies hematuria Musculoskeletal: Denies myalgias Integumentary: Denies pruritus, Denies rash Neurological: Denies numbness, Denies weakness Psychiatric: Denies anxiety, Denies depression Endocrine: Denies fatigue, Denies weight change Past Medical History Past Medical History: Heart Failure, Diabetes Mellitus, Deep Vein Thrombosis ( DVT), Fibromyalgia, GERD/Reflux, Hypertension, Rheumatoid Arthritis (RA) Additional Past Medical History / Comment(s): states diet controlled diabetic, HERNIATED DISCS, SCIATIC NERVE PAIN, NEUROPATHY, YEAST INFECTION UNDER BREASTS History of Any Multi-Drug Resistant Organisms: None Reported Past Surgical History: Hysterectomy Past Anesthesia/Blood Transfusion Reactions: No Reported Reaction Smoking Status: Current every day smoker - Past Family History Mother Family Medical History: Congestive Heart Failure (CHF), Hyperlipidemia, Hypertension Medications and Allergies Home Medications Medication Instructions Recorded Confirmed Type Enalapril [Vasotec] 20 mg PO BID 09/10/16 02/10/18 History Furosemide [Lasix] 20 mg PO DAILY 09/10/16 02/10/18 History Pantoprazole Sodium [Protonix] 40 mg PO DAILY 09/10/16 02/10/18 History Pregabalin [Lyrica] 150 mg PO BID 09/10/16 02/10/18 History amLODIPine [Norvasc] 10 mg PO DAILY 09/10/16 02/10/18 History traMADol HCL [Ultram] 50 mg PO Q6H PRN 09/10/16 02/10/18 History Atorvastatin [Lipitor] 40 mg PO DAILY 02/09/18 02/10/18 History Carvedilol [Coreg] 12.5 mg PO BID 02/09/18 02/10/18 History Ibuprofen [Motrin] 800 mg PO BID 02/09/18 02/10/18 History Mirtazapine [Remeron] 15 mg PO HS 02/09/18 02/10/18 History traZODone HCL 100 mg PO HS 02/09/18 02/10/18 History Allergies Allergy/AdvReac Type Severity Reaction Status Date / Time No Known Allergies Allergy Verified 02/10/18 04:52 Physical Exam Vitals: Vital Signs Resp 02/11/18 03:08 18 Intake and Output 02/10/18 02/11/18 02/11/18 22:59 06:59 14:59 Intake Total 0 Balance 0 Intake: Oral 0 GENERAL EXAM: Alert, 48-year-old -Luxembourger female comfortable in no apparent distress, confused, suspicious, paranoid, she is seen sitting in the urine-soaked bed, refusing to be examined, or assisted to be changed or cleaned up HEAD: Normocephalic/atraumatic. Visual inspection only EYES: Normal reaction of pupils, equal size. Conjunctiva pink, sclera white. Gross visual examination only NOSE: Not examined THROAT: Not examined NECK: Not examined CHEST: No chest wall deformity. Symmetrical expansion. Gross visual examination only LUNGS: Not examined. CVS: Not examined ABDOMEN: Not examined EXTREMITIES: Not examined MUSCULOSKELETAL: Not examined SPINE: Not examined SKIN: Not examined CENTRAL NERVOUS SYSTEM: Alert, and she knew she was in the hospital. No obvious gross motor deficits noted, her speech is normal, not slurred. Results - Laboratory Findings CBC and BMP: 02/09/18 21:03 02/09/18 21:03 PT/INR, D-dimer PT 10.6 sec (9.0-12.0) 02/09/18 21:03 INR 1.1 (<1.2) 02/09/18 21:03 D-Dimer 4.18 mg/L FEU (<0.60) H 02/09/18 21:03 Abnormal lab findings: Abnormal Labs 02/09/18 02/09/18 02/09/18 21:03 21:03 21:03 MCHC 30.1 L D-Dimer 4.18 H Chloride 109 H Carbon Dioxide 21 L Creatinine 0.47 L Glucose 101 H HDL Cholesterol 02/10/18 03:11 MCHC D-Dimer Chloride Carbon Dioxide Creatinine Glucose HDL Cholesterol 31 L - Diagnostic Findings Chest x-ray: report reviewed CT scan - chest: report reviewed Additional studies: EKG noted Assessment and Plan Plan: Assessment: #1. Chest pain on presentation associated with some shortness of breath, moderately severe in intensity, EKG was negative for any acute ischemic changes , troponins were negative 2, cardiology is following #2. Nonspecific mediastinal and bronchial lymph nodes seen on the CT angios of the chest, this could be inflammatory in nature, and outpatient follow-up #3. Mild emphysematous changes seen on the CT angios of the chest #4. Elevated d-dimer, and CTA was negative for any evidence of pulmonary embolism, venous Doppler ultrasounds were negative for DVT #5. Acute delirium/psychosis, patient's confused, paranoid, suspicious, refusing care. #6. History of diabetes mellitus type 2, diet-controlled #7. History of heart failure, and echocardiogram was completed which showed preserved left ventricular systolic function, with no evidence of pulmonary hypertension, and only mild mitral and tricuspid regurg #8. History of upper lipidemia #9. Rheumatoid arthritis #10. GERD/reflux, #11. Fibromyalgia #12. Current every day smoker Plan: From pulmonary perspective, patient appears to be stable, and gross visual examination did not reveal any distress, no shortness of breath, no use of accessory muscles of breathing. She will need follow-up in the outpatient setting for the mediastinal and bronchial lymph nodes that are nonspecific. Patient is experiencing acute delirium/psychosis, and further psychiatric and neurologic investigation is pending. Unfortunately patient is refusing to be examined, or to have any further testing done. She will likely need to be petitioned. From pulmonary perspective the patient is stable, we will follow on as-needed basis, outpatient follow-up in the office in regards to the nonspecific mediastinal and bronchial lymph nodes. No further recommendations. I performed a history & physical examination of the patient and discussed their management with my nurse practitioner, Ivania Garzon. I reviewed the nurse practitioner's note and agree with the documented findings and plan of care. Lung sounds are not examined, patient is refusing to be examined. The findings and the impression was discussed with the patient. I attest to the documentation by the nurse practitioner. Time with Patient: Greater than 30
[2018-02-11] MEDS ORDERED: MORPHINE ORAL SOLN 10 MG/5 ML CUP PO PRN (10:48)
--- NOTE | 2018-02-11 11:58 | PN ---
PROGRESS NOTE Tamera is a 48-year-old lady who was admitted to hospital with chest pain and ruled out for myocardial infarction. I advised her to undergo a stress test, which she declined. She became increasingly more confused and somewhat combative and she is not a candidate for stress testing at this time. She had an echocardiogram that shows normal LV function and no wall motion abnormality. Her chest discomfort is probably noncardiac and she does not require further cardiac workup at this time. She is stable to be sent to a psych floor if that is where she needs to go. MMODL / IJN: [id number] /
[2018-02-11] MEDS: PANTOPRAZOLE 40 MG TABLET PO SCH ×2 (13:24→15:05)
[2018-02-11] MEDS: CARVEDILOL 12.5 MG TAB PO SCH ×2 (13:24→15:08)
[2018-02-11] MEDS: amLODIPine 10 MG TAB PO SCH (13:25)
[2018-02-11] MEDS: ASPIRIN 325 MG TAB PO SCH ×2 (13:26→15:06)
[2018-02-11] MEDS: ATORVASTATIN 40 MG TAB PO SCH ×2 (13:28→15:06)
[2018-02-11] MEDS: FUROSEMIDE 20 MG TAB PO SCH ×2 (13:28→15:05)
[2018-02-11] MEDS: LISINOPRIL 20 MG TAB PO SCH ×3 (13:28→21:09)
[2018-02-11] MEDS: PREGABALIN 75 MG CAP PO SCH ×2 (13:29→21:09)
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
--- NOTE | 2018-02-11 17:31 | CT ---
EXAMINATION TYPE: CT brain wo con DATE OF EXAM: 02/11/2018 COMPARISON: 08/21/2013 HISTORY: ams CT DLP: 1303.4 mGycm. Automated Exposure Control for Dose Reduction was Utilized. TECHNIQUE: CT scan of the head is performed without contrast. FINDINGS: Ventricles of normal size. There is no mass effect Ralph line shift. There is no sign of i ntracranial hemorrhage. The calvarium is intact. Sella turcica appears normal. There is small fluid l evel in right maxillary sinus. IMPRESSION: Negative CT scan of the brain. There is significant clearing of the right maxillary sinusitis compare d to old exam.
[2018-02-11] MEDS: MIRTAZAPINE 15 MG TAB PO SCH (21:09)
[2018-02-11] MEDS: traZODone HCL 100 MG TAB PO SCH (21:09)
[2018-02-12 00:18] LABS: Amphetamine Screen,Urine Not Detected (NotDetected); Barbiturate Screen,Urine Not Detected (NotDetected); Benzodiazepines Screen,Urine Detected (NotDetected); Cocaine Screen,Urine Not Detected (NotDetected); Methadone Screen, Urine Not Detected (NotDetected); Opiate Screen,Urine Not Detected (NotDetected); Oxycodone Screen, Urine Not Detected (NotDetected); Phencyclidine Screen,Urine Not Detected (NotDetected); Tricyclic Antidepressant,Urine Not Detected (NotDetected); Urn Cannabinoid Scrn Not Detected (NotDetected)
[2018-02-12 08:07] VITALS: RESP 16; TEMP 98.4
[2018-02-12] MEDS: LISINOPRIL 20 MG TAB PO SCH (08:21)
[2018-02-12] MEDS: CARVEDILOL 12.5 MG TAB PO SCH (08:21)
[2018-02-12] MEDS: ATORVASTATIN 40 MG TAB PO SCH (08:21)
[2018-02-12] MEDS: amLODIPine 10 MG TAB PO SCH (08:21)
[2018-02-12] MEDS: PREGABALIN 75 MG CAP PO SCH (08:21)
[2018-02-12] MEDS: FUROSEMIDE 20 MG TAB PO SCH (08:21)
[2018-02-12] MEDS: ASPIRIN 325 MG TAB PO SCH (08:21)
[2018-02-12] MEDS: PANTOPRAZOLE 40 MG TABLET PO SCH (08:26)
[2018-02-12] MEDS ORDERED: ENOXAPARIN 40 MG/0.4 ML SYRINGE SQ SCH (09:00)
[2018-02-12 12:03] VITALS: BP 122/81; PULSE 93
--- NOTE | 2018-02-12 12:22 | P.DS ---
Providers Date of admission: 02/10/18 02:26 Expected date of discharge: 02/12/18 Attending physician: Luis Kerr Consults: 02/10/18 02:17 Consult Physician Urgent Consulting Provider: Yeison Denson Consult Reason/Comments: Chest pain, EKG changes Do you want consulting provider notified?: Yes 02/10/18 13:27 Consult Physician Routine Consulting Provider: Camden Rangel Consult Reason/Comments: altered mental status Do you want consulting provider notified?: Yes Consult Physician Routine Consulting Provider: Crystal Christiansen Consult Reason/Comments: altered mental status Do you want consulting provider notified?: Yes 02/10/18 13:35 Consult Physician Routine Consulting Provider: Isabella Sarmiento Consult Reason/Comments: Abnormal CT chest Do you want consulting provider notified?: Yes Primary care physician: [place] Kerr [facility] Course: Diagnoses on discharge: 1. Altered mentation with possible psychosis. Patient is confused, having hallucinations, paranoid and refusing care and testing. Also had threatened rehabilitation tech. Security in the room for safety purposes. Awaiting psychiatry evaluation about possible inpatient psychiatry admission. 2. Atypical Chest pain: Troponins negative 2 sets. EKG normal sinus rhythm with no ischemic changes. Patient seen by cardiology. Patient is refusing further workup. She refused to have stress tests completed and refused the third set of cardiac enzymes to be drawn. 3. Elevated d-dimer CTA negative for PE and Dopplers are negative for DVT 4. Nonspecific mediastinal and bronchial lymph nodes likely secondary to inflammation noted on CTA of the chest. Seen by pulmonary service recommended follow-up as outpatient. 5. Nicotine dependence: Discussed smoking cessation for greater than 3 minutes. Patient refusing nicotine patch 6. Essential hypertension: Uncontrolled blood pressures. Patient had refused taking any of her medications earlier today. Nursing staff was now able to get patient to take her blood pressure pills. We'll have blood pressure rechecked in about an hour. Note that blood pressure was 199/110 and heart rate 121 7. Hyperlipidemia 8. Rheumatoid arthritis 9. Fibromyalgia Hospital course: This is a 48-year-old female with a known past medical history of depression, congestive heart failure, diet-controlled diabetes mellitus, GERD, hypertension , hyperlipidemia, fibroid myalgia and rheumatoid arthritis. Patient is a smoker. She presents to the emergency room with complaints of chest pain. Patient had associated shortness of breath. Symptoms have resolved. Patient is a poor historian. Was unable to describe exactly where the chest pain was located. Unable to tell me how old along the chest pain lasted. Patient is not very forthcoming with information. She was initially placed on IV heparin. Troponins were negative 2 sets. She did have elevated d-dimer on admission CT of the chest was negative for PE but did reveal a few nonspecific mediastinal and bronchial lymph nodes likely secondary to inflammation. Doppler of the lower extremities were negative for DVT. In the ER she had reported leg pain. At this time she is not reporting any leg pain. She was evaluated by cardiology and they had planned to proceed with a stress test for further evaluation of her chest pain. Patient refused to have stress tests completed and also is refusing the third set of cardiac enzymes. She is able to tell me she is no longer having chest pain. Echo which showed an EF of 55-60 % with moderate left ventricle hypertrophy and trivial pericardial effusion. Also note that patient's daughter had called the nurse and informed us that her mother has not been acting right. She is confused. She was lethargic a couple a days ago. Daughter is concerned that she may have double up on a couple for medications. Daughter is also concerned that her mother is becoming "schizophrenic ." Daughter reports that patient did have some chest tightness. Computed tomography scan of the brain without contrast will be ordered. Consults will be placed for psychiatry and neurology. Check a urine drug screen. Daughter had also reported that her mother may have taken extra tramadol. That her mother has had a similar episode of mental status changes when taking tramadol 02/11/18 patient's showing evidence of paranoid thoughts. Also had hallucinations this morning. She was talking to someone and there is no one else in the room. Patient's behavior is abnormal. She is still sitting on the edge of the bed and had really not moved throughout the night. She did not sleep she did not eat and she did not get up to use the restroom. She had soiled herself with urine. Nursing staff had to clean the patient and change bedding. Patient threatened the rehabilitation tech that she would kill her and hit her with her cane. Nursing staff removed the cane and other items that could possibly cause harm. Patient has refused all testing she's refused all further blood work, drug screen, computed tomography scan of the brain, and stress test. Pulmonary and cardiology services have cleared patient medically and recommend further psychiatric workup. Patient also seen by neurology they've ordered an EEG and had recommended computed tomography scan of the brain. Patient is finally agreeable this afternoon to have the EEG completed. Still awaiting psychiatric evaluation about possible inpatient rehab. Security present in patient's room for safety. Patient was able to tell me she has no chest pain. She refused any physical exam. She states "what do you want? Are you done? " When I try to examine her. 02/12/2018 patient was seen and examined at the observation unit, at this time she is alert and oriented 3 she has normal speech and behavior, she was evaluated earlier by psychiatry and there was no recommendation for inpatient admission in the psychiatry unit, no recommendation for any change in her medications, patient has improved significantly since yesterday and has normal behavior at this time. I discussed the case with the patient in details, she presented with chest pain, myocardial infarction ruled out, pulmonary embolism ruled out, patient has refused stress test, she has removed her IV and her telemetry unit, at this time will proceed with discharging patient home, she will follow-up with her laborer tan house Dr. Redmond in the next 2-3 days, she can also follow in our office in the next 2-3 days, will assess if patient needs any further evaluation as outpatient . Patient has known history of sleep apnea , she was unable to tolerate CPAP machine, she is also maintained on multiple medications including Remeron and Lyrica that might affect her behavior, cause of aberrant behavior over the last few days is unclear, psychiatry consult and neurology consult reviewed in details, at this time will discharge patient to home and assess soon in the outpatient setting to see if any further evaluation needs to be done Patient Condition at Discharge: Stable Plan - Discharge Summary New Discharge Prescriptions: New Aspirin 325 mg PO DAILY tab Continue traMADol HCL [Ultram] 50 mg PO Q6H PRN PRN Reason: Pain amLODIPine [Norvasc] 10 mg PO DAILY Enalapril [Vasotec] 20 mg PO BID Pregabalin [Lyrica] 150 mg PO BID Pantoprazole Sodium [Protonix] 40 mg PO DAILY Furosemide [Lasix] 20 mg PO DAILY traZODone HCL 100 mg PO HS Mirtazapine [Remeron] 15 mg PO HS Ibuprofen [Motrin] 800 mg PO BID Carvedilol [Coreg] 12.5 mg PO BID Atorvastatin [Lipitor] 40 mg PO DAILY Discharge Medication List Enalapril [Vasotec] 20 mg PO BID 09/10/16 [History] Furosemide [Lasix] 20 mg PO DAILY 09/10/16 [History] Pantoprazole Sodium [Protonix] 40 mg PO DAILY 09/10/16 [History] Pregabalin [Lyrica] 150 mg PO BID 09/10/16 [History] amLODIPine [Norvasc] 10 mg PO DAILY 09/10/16 [History] traMADol HCL [Ultram] 50 mg PO Q6H PRN 09/10/16 [History] Atorvastatin [Lipitor] 40 mg PO DAILY 02/09/18 [History] Carvedilol [Coreg] 12.5 mg PO BID 02/09/18 [History] Ibuprofen [Motrin] 800 mg PO BID 02/09/18 [History] Mirtazapine [Remeron] 15 mg PO HS 02/09/18 [History] traZODone HCL 100 mg PO HS 02/09/18 [History] Aspirin 325 mg PO DAILY tab 02/12/18 [Rx] Follow up Appointment(s)/Referral(s): Luis Kerr MD [Primary Care Provider] - 1-2 days Berenice Guzmán MD [STAFF PHYSICIAN] - 1 Week
--- NOTE | 2018-02-12 17:50 | EEG ---
ELECTROENCEPHALOGRAM REPORT DATE OF EE02/11/2018. REFERRING PHYSICIAN: Dr. Kerr. CONSULTING INTERPRETING PHYSICIAN: Dr. Crystal Christiansen ELECTROENCEPHALOGRAPHIC EXAMINATION REPORT: INDICATION FOR EXAMINATION: This patient is a 48-year-old female being evaluated for altered mental status and chest pain. AGE: 48. EEG FINDINGS: A routine 21 channel awake digital EEG recording was accomplished utilizing the 10-20 international system with bipolar and referential montages. The background activity in the most alert resting state consists of a low amplitude poorly developed and poorly sustained 7-8 Hz activity over the posterior head regions. This posterior rhythm attenuates minimally to eye opening. There is a moderate amount of low amplitude 18-20 Hz beta activity seen in a generalized fashion. Hyperventilation was not performed. Photic stimulation at flash frequencies of 2-30 Hz produced a minimal occipital driving response. No epileptiform discharges were seen. IMPRESSION: This EEG is within normal limits for the patient's age. The EEG failed to reveal any focal, lateralized, or epileptiform abnormalities. Clinical correlation is recommended. MMODL / IJN: [id number] /
== END 2018-02-12 17:20 | disposition home or self-care (01) | DRG 885 ==
LOC: EC 20:45 → 1SOBS 02-10 02:26 → OBSVTOIN 02-12 11:31
PROVIDERS: ADMIT Internal Medicine; ATTEND Internal Medicine
DX: F23 Brief psychotic disorder (principal); E11.40 Type 2 diabetes mellitus with diabetic neuropathy, unspecified; E78.5 Hyperlipidemia, unspecified; F17.200 Nicotine dependence, unspecified, uncomplicated; G47.30 Sleep apnea, unspecified; I11.0 Hypertensive heart disease with heart failure; I50.9 Heart failure, unspecified; K21.9 Gastro-esophageal reflux disease without esophagitis; M06.9 Rheumatoid arthritis, unspecified; M79.7 Fibromyalgia; R79.1 Abnormal coagulation profile; F32.9 Major depressive disorder, single episode, unspecified; M54.30 Sciatica, unspecified side; M79.604 Pain in right leg; M79.605 Pain in left leg; R07.89 Other chest pain; E66.9 Obesity, unspecified; Z68.29 Body mass index [BMI] 29.0-29.9, adult; Z90.710 Acquired absence of both cervix and uterus; Z79.899 Other long term (current) drug therapy; Z86.718 Personal history of other venous thrombosis and embolism; Z82.49 Family history of ischemic heart disease and other diseases of the circulatory system; Z84.89 Family history of other specified conditions
CPT/HCPCS: 36415; 70450; 71046; 71275; 80053; 80061; 80306; 82550; 82553; 83735; 84484; 85025; 85379; 85610; 85730; 93005; 93306; 93970; 95816; 96361; 96365; 96376; 99285

== ENCOUNTER → 2018-06-01 | Outpatient (CLI) | payer MEDICARE, OTHER ==
[2018-06-01 12:16] VITALS: BP 89/59; PULSE 92; RESP 16; TEMP 98.5; BMI 32.5
--- NOTE | 2018-06-01 13:09 | P.PN ---
Progress Note - Text Progress Note Date: 06/01/18 Chief Complaint: left breast pain and lump since 2 days ago HPI: This is a 48-year-old with an LMP of 2011. The patient woke up 2 days ago with sharp left breast pain. She initially thought she had pain because she slept on the breast. The pain seemed to go away, but yesterday she again developed sharp left breast pain superior to the left nipple. She also feels a piece size not in the area of the pain. She tried taking ibuprofen and using warm compresses to the area which did not seem to help. She denies any recent new exercise regimens. She denies any trauma to the breast. She had a left-sided mammogram on 12/28/2017 which was benign. She states she does drink lots of caffeinated beverages. ROS: unremarkable PE: Blood pressure: 89/59, Height: 5'8", Weight: hundred 14 pounds, Temperature : 98.5, Pulse: 92, respiratory rate 16, pulse oximeter 96. This is a well developed, well nourished, black female who is alert and orientedx3, in no acute distress. Breast exam: both breasts are somewhat fibrocystic in nature. At approximately the 2 o'clock position of the left breast, there is a 3-4 millimeter firm mass that seems more prominent than the surrounding fibrocystic changes. This is near the surface and is mildly tender. There is no erythema and no dimpling in this area. There are no other palpable masses in the breasts. There is no nipple discharge. Axillary exam is negative for adenopathy bilaterally. Impression: 1. 48-year-old female with small left breast mass at the 2 o'clock position. Differential diagnosis will include fibrocystic changes, prominent glandular tissue, breast cyst, and less likely left breast neoplasm. 2. Left breast pain in the area of the small left breast mass. Plan: 1. We have had a long discussion regarding the breast findings. This is the side that did require additional workup last year. Her last mammogram on the left was on 12/28/2017 which was benign. We will get a left breast ultrasound today. The area of concern was marked on the surface with a bead marker. If cystic or no cyst or solid masses visualized, conservative management. She will follow-up in one month for her annual exam and bilateral mammogram if no concerning mass is seen by ultrasound today. Time spent with the patient: 15 minutes
== END | disposition home or self-care (01) ==
LOC: WWCWWP 11:37
PROVIDERS: ATTEND Obstetrics & Gynecology
DX: Z53.9 Procedure and treatment not carried out, unspecified reason (principal)

== ENCOUNTER → 2018-06-28 | Outpatient (CLI) | payer MEDICARE, OTHER ==
[2018-06-28 11:40] VITALS: BP 87/62; PULSE 65; RESP 16; TEMP 97.9; BMI 32.6
--- NOTE | 2018-06-28 12:31 | P.HPOB ---
History of Present Illness H&P Date: 06/28/18 Chief Complaint: The patient is here for her routine gynecologic exam and ma mmogram. This is a 48-year-old with an LMP of 2011. She status post TL age for benign reasons. Patient does have occasional hot flashes. She had also been using estrogen vaginal cream for vaginal dryness. She states the cream was helpful for the vaginal dryness with sexual activity. The patient was seen last month because she was felt a small breast lump in the left breast. She was carol eduled for a breast ultrasound on that day but she did not make it to the appointment. She states she no longer feels the breast lump. She does have occasional hot flashes. The vaginal estrogen cream was discontinued when she came in for the breast evaluation last month. Review of Systems She has lost about 6 pounds over the last year. She denies respiratory or G.I. problems. Cardiac: she states she had a brief sharp pain in the chest when she moved her body earlier today. Past Medical History Past Medical History: Heart Failure, Diabetes Mellitus, Fibromyalgia, GERD/Reflux, Hyperlipidemia, Hypertension, Rheumatoid Arthritis (RA), Thyroid Disorder, Vascular Disorder Additional Past Medical History / Comment(s): states diet controlled diabetic, HERNIATED DISCS, SCIATIC NERVE PAIN, NEUROPATHY, YEAST INFECTION UNDERARMS-using cream, recent abd. pain, cramping, frequent diarrhea. 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 TLH for benign reasons. History of Any Multi-Drug Resistant Organisms: None Reported Past Surgical History: Hysterectomy, Uterine Ablation Additional Past Surgical History / Comment(s): Total laparoscopic hysterectomy 2012. Past Anesthesia/Blood Transfusion Reactions: No Reported Reaction Past Psychological History: Anxiety, Depression Smoking Status: Current every day smoker (6 cigarettes per day) Past Alcohol Use History: Rare (One every 2 months) Additional Past Alcohol Use History / Comment(s): started smoking age 25 (1994) Past Drug Use History: None Reported Additional History: She is single and is not seeing anybody at this time. She is considered disabled. - Past Family History Mother Family Medical History: Congestive Heart Failure (CHF), Hyperlipidemia, Hypertension, Myocardial Infarction (CA) Additional Family Medical History / Comment(s): Grandmother had an CA. Father Family Medical History: Cancer Additional Family Medical History / Comment(s): Gastric cancer. Grandmother had breast cancer. Medications and Allergies Home Medications Medication Instructions Recorded Confirmed Type Enalapril [Vasotec] 20 mg PO BID 09/10/16 06/17/18 History Furosemide [Lasix] 20 mg PO DAILY 09/10/16 06/17/18 History Pantoprazole Sodium [Protonix] 40 mg PO DAILY 09/10/16 06/17/18 History amLODIPine [Norvasc] 10 mg PO DAILY 09/10/16 06/17/18 History traMADol HCL [Ultram] 50 mg PO Q6H PRN 09/10/16 06/17/18 History Atorvastatin [Lipitor] 40 mg PO DAILY 02/09/18 06/17/18 History Carvedilol [Coreg] 12.5 mg PO BID 02/09/18 06/17/18 History Ibuprofen [Motrin] 800 mg PO BID PRN 02/09/18 06/17/18 History traZODone HCL 100 mg PO HS 02/09/18 06/17/18 History Aspirin 81 mg PO DAILY 06/17/18 06/17/18 History Etanercept [Enbrel] 50 mg SQ WE 06/17/18 06/17/18 History Folic Acid 1 mg PO DAILY 06/17/18 06/17/18 History Gabapentin [Neurontin] 300 mg PO BID 06/17/18 06/17/18 History Methotrexate Sodium [Methotrexate] 15 mg PO WE 06/17/18 06/17/18 History Temazepam [Restoril] 15 mg PO HS PRN 06/17/18 06/17/18 History Allergies Allergy/AdvReac Type Severity Reaction Status Date / Time Tetracyclines Allergy Rash/Hives Verified 06/28/18 11:31 Exam Vital Signs Temp Pulse Resp BP 06/28/18 11:33 97.9 F 65 16 87/62 Intake and Output 06/27/18 06/28/18 06/28/18 22:59 06:59 14:59 Other: Weight 97.522 kg Height 5'8", weight 215 pounds, BMI of 32.7. This is a well-developed well-nourished heavyset black female who is alert and oriented times 3 in no acute distress. HEENT: Within normal limits. NECK: Supple without mass or thyromegaly. CHEST AND LUNGS: Clear to auscultation. HEART: Regular rate and rhythm. BREASTS: Are without mass or discharge. AXILLARY EXAM: Negative for adenopathy. BACK: Negative for CVA tenderness. ABDOMEN: Soft, mildly obese, nontender, without palpable masses. PELVIC EXAM: External genitalia appears normal. Vagina appears normal with minimal atrophy. There is no evidence of prolapse. Bimanual examination is negative for mass or tenderness. RECTAL EXAM: Rectovaginal exam is negative for mass or tenderness and is negative for occult blood. EXTREMITIES: Nontender. IMPRESSION: 1. 48-year-old perimenopausal female status post TLH for benign reasons. 2. Mild vasomotor symptoms and vaginal dryness consistent with the perimenopause. 3. The patient had previously felt a small left breast lump last month which is no longer felt by the patient and no lump as noted on exam today. PLAN: 1. Pap smears have been discontinued. 2. Self breast awareness was discussed with the patient. 3. Bilateral screening mammogram will be done today. 4. If the mammogram is benign, she can resume the vaginal estrogen cream as directed. 5. She will try to go without any additional HRT for her vasomotor symptoms. She will call if she is having worsening vasomotor symptoms and we can reconsider the options. 6. Since she had some chest discomfort when she moved earlier today, she will see if she has any recurrence of the chest discomfort. If she has any chest discomfort, she was instructed to go to the emergency room right away. 7. She will return in one year for her annual well woman exam and PRN.
--- NOTE | 2018-06-29 13:17 | MM ---
Reason for exam: screening (asymptomatic). Last mammogram was performed 6 months ago. History: Patient is postmenopausal. Family history of breast cancer in maternal grandmother at age 86. Took hormonal contraceptives for 6 years beginning at age 18. Physical Findings: A clinical breast exam by your physician is recommended on an annual basis and results should be correlated with mammographic findings. MG 3D Screening Mammo W/Cad Bilateral CC, MLO, and XCCL view(s) were taken. Prior study comparison: December 28, 2017, left breast MG 3d diag mammo w/cad LT. June 01, 2017, bilateral MG 3d screening mammo w/cad. There are scattered fibroglandular densities. Stable benign calcifications. There is no discrete abnormality. No significant changes when compared with prior studies. ASSESSMENT: Benign, BI-RAD 2 RECOMMENDATION: Routine screening mammogram of both breasts in 1 year.
== END ==
LOC: WWCWWP 11:13
PROVIDERS: ATTEND Obstetrics & Gynecology
DX: Z12.31 Encounter for screening mammogram for malignant neoplasm of breast (principal)
CPT/HCPCS: 77063; 77067

== ENCOUNTER 2018-07-06 09:41 | Day surgery (SDC) | payer MEDICARE, OTHER ==
[2018-06-17 08:24] VITALS: BMI 30.9
[2018-07-06 10:40] VITALS: RESP 18; TEMP 97.8
[2018-07-06] MEDS ORDERED: LACTATED RINGERS 1,000 ML IV ONE (10:40)
[2018-07-06 10:49] LABS: Glucose,Whole Blood 105 mg/dL (75-99)
[2018-07-06] MEDS ORDERED: PROPOFOL 10 MG/ML 20 ML VIAL IV ONE (11:16)
--- NOTE | 2018-07-06 11:31 | P.PCN ---
Date of Procedure: 07/06/18 Procedure(s) Performed: BRIEF HISTORY: Patient is a 48-year-old pleasant -[place] female scheduled for an elective colonoscopy as a part of evaluation of change in bowel habits and intermittent rectal bleeding. PROCEDURE PERFORMED: Colonoscopy. PREOPERATIVE DIAGNOSIS: Change in bowel habits and intermittent rectal bleeding. IV sedation per Anesthesia. PROCEDURE: After informed consent was obtained, the patient, was brought into the endoscopy unit. IV sedation was administered by Anesthesia under continuous monitoring. Digital rectal examination was normal. Initially the Olympus CF-160 flexible video colonoscope was then inserted in the rectum, gradually advanced into the cecum without any difficulty. Careful examination was performed as the scope was gradually being withdrawn. Ileocecal valve and the appendiceal orifice were visualized and appeared normal. Prep was excellent. Mucosa of the cecum, ascending colon, transverse colon, descending colon, sigmoid colon, and rectum appeared normal. Retroflexion was performed in the rectum and no internal hemorrhoids were seen. Sigmoid diverticulosis were seen. The patient tolerated the procedure well. IMPRESSION: Normal-appearing colon from rectum to cecum with no evidence of colitis or colorectal neoplasia Small internal hemorrhoids Scattered sigmoid diverticula. RECOMMENDATIONS: Findings of this examination were discussed with the patient As well as her family. She was advised to have a repeat scanning colonoscopy in 10 years.
[2018-07-06 12:14] VITALS: BP 112/78; PULSE 78
== END 2018-07-06 12:20 | disposition home or self-care (01) ==
LOC: ORWHC2ENDO 09:41
PROVIDERS: ATTEND Internal Medicine Gastroenterology
DX: R19.4 Change in bowel habit (principal); K62.5 Hemorrhage of anus and rectum; K57.30 Diverticulosis of large intestine without perforation or abscess without bleeding; I11.0 Hypertensive heart disease with heart failure; I50.9 Heart failure, unspecified; E78.5 Hyperlipidemia, unspecified; F17.200 Nicotine dependence, unspecified, uncomplicated; E11.9 Type 2 diabetes mellitus without complications; M06.9 Rheumatoid arthritis, unspecified; F32.9 Major depressive disorder, single episode, unspecified; Z79.82 Long term (current) use of aspirin; Z79.891 Long term (current) use of opiate analgesic; Z79.899 Other long term (current) drug therapy
CPT/HCPCS: 45378; J2704

== ENCOUNTER → 2018-11-21 | Outpatient (CLI) | payer MEDICARE, OTHER ==
[2018-11-21 11:29] LABS: Appearance,Urine Clear (Clear); Bilirubin,Urine Negative (Negative); Blood,Urine Negative (Negative); Color,Urine Light Yellow; Glucose,Urine (UA) Negative (Negative); Ketones,Urine Negative (Negative); Leukocyte Esterase,Urine Negative (Negative); Nitrite,Urine Negative (Negative); Protein,Urine Negative (Negative); Specific Gravity,Urine 1.009 (1.001-1.035); Urobilinogen,Urine <2.0 mg/dL (<2.0)
[2018-11-21 11:34] LABS: Basophils # (A) 0.1 k/uL (0-0.2); Basophils % (A) 1 %; Eosinophils # (A) 0.5 k/uL (0-0.7); Eosinophils % (A) 6 %; HCT 39.3 % (34.0-46.0); HGB 12.2 gm/dL (11.4-16.0); Hypochromasia Slight; Lymphocytes # (A) 2.6 k/uL (1.0-4.8); Lymphocytes % (A) 34 %; MCH 28.6 pg (25.0-35.0); MCHC 31.1 g/dL (31.0-37.0); Mean Platelet Volume 6.9; Monocytes # (A) 0.4 k/uL (0-1.0); Monocytes % (A) 5 %; Neutrophils # (A) 3.9 k/uL (1.3-7.7); Neutrophils % (A) 51 %; Platelet Count 264 k/uL (150-450); RBC 4.28 m/uL (3.80-5.40); RDW 15.6 % (11.5-15.5); WBC 7.7 k/uL (3.8-10.6)
[2018-11-21 13:53] LABS: Erythrocyte Sedimentation Rate 8 mm/hr (0-20)
[2018-11-21 17:29] LABS: African American GFR (CKD) 100.3 (60.0-200.0); Albumin 3.9 g/dL (3.80-4.90); Albumin/Globulin Ratio 1.63 (1.60-3.17); Anion Gap 3.4 mmol/L (4.00-12.00); BUN/Creat Ratio 12.5 Ratio (12.00-20.00); C Reactive Protein 0.9 mg/dL (0.0-0.8); Calcium 9.3 mg/dL (8.7-10.3); Carbon Dioxide 25.6 mmol/L (21.6-31.8); Chol/HDL Ratio 2.64; Globulin 2.4 g/dL (1.6-3.3); LDL Cholesterol,Calculated 47.2 mg/dL (0.0-131.0); Potassium 4.4 mmol/L (3.5-5.5); Total Bilirubin 0.7 mg/dL (0.3-1.2); Total Protein 6.3 g/dL (6.2-8.2); VLDL Calculation 16.8 mg/dL (5.00-40.00)
[2018-11-21 18:55] LABS: Hemoglobin A1C 5.3 % (4.0-6.0)
== END | disposition home or self-care (01) ==
LOC: LABWHC1 09:51
PROVIDERS: ATTEND Internal Medicine
DX: E11.9 Type 2 diabetes mellitus without complications (principal); E55.9 Vitamin D deficiency, unspecified; M06.9 Rheumatoid arthritis, unspecified; E78.00 Pure hypercholesterolemia, unspecified; I10 Essential (primary) hypertension
CPT/HCPCS: 36415; 80053; 80061; 81003; 82043; 82306; 82570; 83036; 85025; 85652; 86140

== ENCOUNTER → 2019-03-10 | Outpatient (CLI) | payer MEDICARE, OTHER ==
[2019-03-10 14:45] LABS: Basophils % (A) 0 %; Eosinophils # (A) 0.4 k/uL (0-0.7); Eosinophils % (A) 6 %; Hypochromasia Slight; Lymphocytes # (A) 3.2 k/uL (1.0-4.8); Lymphocytes % (A) 50 %; MCH 28.9 pg (25.0-35.0); MCHC 31.7 g/dL (31.0-37.0); MCV 91.1 fL (80.0-100.0); Mean Platelet Volume 6.9; Monocytes # (A) 0.4 k/uL (0-1.0); Monocytes % (A) 6 %; Neutrophils # (A) 2.3 k/uL (1.3-7.7); Neutrophils % (A) 36 %; Platelet Count 244 k/uL (150-450); RDW 14.2 % (11.5-15.5); WBC 6.4 k/uL (3.8-10.6)
[2019-03-10 17:02] LABS: Erythrocyte Sedimentation Rate 6 mm/hr (0-20)
[2019-03-10 18:48] LABS: African American GFR (CKD) 123.2 (60.0-200.0); C Reactive Protein 0.5 mg/dL (0.0-0.8); Non-African American GFR(CKD) 106.3 (60.0-200.0)
== END | disposition home or self-care (01) ==
LOC: LABWHC1 13:32
PROVIDERS: ATTEND Internal Medicine Rheumatology
DX: M06.9 Rheumatoid arthritis, unspecified (principal)
CPT/HCPCS: 36415; 82565; 84450; 84460; 85025; 85652; 86140

== ENCOUNTER → 2019-05-25 | Outpatient (CLI) | payer MEDICARE, OTHER ==
[2019-05-25 11:42] LABS: Basophils # (A) 0.1 k/uL (0-0.2); Basophils % (A) 2 %; Eosinophils # (A) 0.2 k/uL (0-0.7); Eosinophils % (A) 5 %; HCT 43.1 % (34.0-46.0); HGB 13.1 gm/dL (11.4-16.0); Hypochromasia Slight; Lymphocytes # (A) 1.8 k/uL (1.0-4.8); Lymphocytes % (A) 39 %; MCH 28.4 pg (25.0-35.0); MCHC 30.5 g/dL (31.0-37.0); MCV 93.2 fL (80.0-100.0); Mean Platelet Volume 8.5; Monocytes # (A) 0.3 k/uL (0-1.0); Monocytes % (A) 6 %; Neutrophils # (A) 2.1 k/uL (1.3-7.7); Neutrophils % (A) 46 %; Platelet Count 188 k/uL (150-450); RBC 4.63 m/uL (3.80-5.40); RDW 14.6 % (11.5-15.5); WBC 4.6 k/uL (3.8-10.6)
[2019-05-25 12:39] LABS: Appearance,Urine Cloudy (Clear); Bacteria,Urine Rare /hpf; Bilirubin,Urine Negative (Negative); Blood,Urine Negative (Negative); Color,Urine Yellow; Glucose,Urine (UA) Negative (Negative); Ketones,Urine Negative (Negative); Leukocyte Esterase,Urine Negative (Negative); Mucus,Urine Few /hpf; Nitrite,Urine Negative (Negative); Protein,Urine Trace (Negative); RBC,Urine 5 /hpf (0-5); Specific Gravity,Urine 1.029 (1.001-1.035); Squamous Epithelial Cell,Urine 16 /hpf (0-4); WBC,Urine 1 /hpf (0-5)
[2019-05-25 15:50] LABS: African American GFR (CKD) 123.2 (60.0-200.0); Albumin/Globulin Ratio 1.9 (1.60-3.17); Anion Gap 7.1 mmol/L (4.00-12.00); BUN/Creat Ratio 18.33 Ratio (12.00-20.00); Carbon Dioxide 20.9 mmol/L (21.6-31.8); Chol/HDL Ratio 2.3; Globulin 2.1 g/dL (1.6-3.3); LDL Cholesterol,Calculated 36.6 mg/dL (0.0-131.0); Non-African American GFR(CKD) 106.3 (60.0-200.0); Potassium 3.7 mmol/L (3.5-5.5); Total Bilirubin 0.5 mg/dL (0.3-1.2); Total Protein 6.1 g/dL (6.2-8.2); VLDL Calculation 20.4 mg/dL (5.00-40.00)
== END | disposition home or self-care (01) ==
LOC: LABWHC1 10:13
PROVIDERS: ATTEND Internal Medicine
DX: I10 Essential (primary) hypertension (principal); M06.9 Rheumatoid arthritis, unspecified; R53.83 Other fatigue; E55.9 Vitamin D deficiency, unspecified
CPT/HCPCS: 36415; 80053; 80061; 81001; 82306; 82607; 84443; 85025

== ENCOUNTER → 2019-06-16 | Outpatient (CLI) | payer MEDICARE, OTHER ==
[2019-06-16 14:50] LABS: Basophils % (A) 0 %; Eosinophils # (A) 0.4 k/uL (0-0.7); Eosinophils % (A) 5 %; HCT 43.9 % (34.0-46.0); HGB 13.5 gm/dL (11.4-16.0); Hypochromasia Slight; Lymphocytes # (A) 2.7 k/uL (1.0-4.8); Lymphocytes % (A) 37 %; MCHC 30.8 g/dL (31.0-37.0); MCV 90.9 fL (80.0-100.0); Mean Platelet Volume 8.1; Monocytes # (A) 0.3 k/uL (0-1.0); Monocytes % (A) 4 %; Neutrophils # (A) 3.7 k/uL (1.3-7.7); Neutrophils % (A) 50 %; Platelet Count 365 k/uL (150-450); RBC 4.83 m/uL (3.80-5.40); RDW 14.4 % (11.5-15.5); WBC 7.3 k/uL (3.8-10.6)
[2019-06-16 15:59] LABS: Erythrocyte Sedimentation Rate 8 mm/hr (0-20)
[2019-06-16 19:10] LABS: African American GFR (CKD) 123.2 (60.0-200.0); C Reactive Protein 0.7 mg/dL (0.0-0.8); Non-African American GFR(CKD) 106.3 (60.0-200.0)
== END | disposition home or self-care (01) ==
LOC: LABWHC1 14:01
PROVIDERS: ATTEND Internal Medicine Rheumatology
DX: M06.9 Rheumatoid arthritis, unspecified (principal)
CPT/HCPCS: 36415; 82565; 84450; 84460; 85025; 85652; 86140

== ENCOUNTER → 2019-09-22 | Outpatient (CLI) | payer MEDICARE, OTHER ==
[2019-09-22 15:12] LABS: Basophils % (A) 1 %; Eosinophils # (A) 0.4 k/uL (0-0.7); Eosinophils % (A) 5 %; HCT 42.9 % (34.0-46.0); HGB 13.4 gm/dL (11.4-16.0); Hypochromasia Moderate; Lymphocytes # (A) 2.7 k/uL (1.0-4.8); Lymphocytes % (A) 37 %; MCH 28.8 pg (25.0-35.0); MCHC 31.1 g/dL (31.0-37.0); MCV 92.6 fL (80.0-100.0); Mean Platelet Volume 8.3; Monocytes # (A) 0.4 k/uL (0-1.0); Monocytes % (A) 5 %; Neutrophils # (A) 3.5 k/uL (1.3-7.7); Neutrophils % (A) 49 %; Platelet Count 227 k/uL (150-450); RBC 4.64 m/uL (3.80-5.40); RDW 14.8 % (11.5-15.5); WBC 7.2 k/uL (3.8-10.6)
[2019-09-22 15:52] LABS: Erythrocyte Sedimentation Rate 3 mm/hr (0-20)
[2019-09-23 00:05] LABS: African American GFR (CKD) 123.2 (60.0-200.0); C Reactive Protein 1.1 mg/dL (0.0-0.8); Non-African American GFR(CKD) 106.3 (60.0-200.0)
== END | disposition home or self-care (01) ==
LOC: LABWHC1 14:42
PROVIDERS: ATTEND Internal Medicine Rheumatology
DX: M06.9 Rheumatoid arthritis, unspecified (principal)
CPT/HCPCS: 36415; 82565; 84450; 84460; 85025; 85652; 86140

== ENCOUNTER → 2019-10-10 | Outpatient (CLI) | payer MEDICARE, OTHER ==
[2019-10-10 15:26] VITALS: BP 126/70; PULSE 68; RESP 20; TEMP 98.5
--- NOTE | 2019-10-10 16:16 | P.HPOB ---
History of Present Illness H&P Date: 10/10/19 Chief Complaint: The patient is here for her routine gynecologic exam and ma mmogram. This is a 49-year-old with an LMP of 2011. She is status post TLH for benign reasons. The patient noticed to pimple-like skin lesions on the left breast recently. The first one was noted at the 12 o'clock position and then another one was noted at the 3 o'clock position. She use warm compresses on them and they did seem to drain. She is otherwise without complaints. She denies sexual activity recently, but she is requesting to be retested for STD infections. She denies any unusual discharge or genital lesions. She has been using vaginal estrogen cream for vaginal dryness and would like to continue this. Review of Systems The patient has gained 14 pounds over the last year. She denies respiratory or cardiac problems. GI: Occasional IBS symptoms and gastric reflux symptoms. Dr. Denson is her GI doctor. Past Medical History Past Medical History: Heart Failure, Diabetes Mellitus, Fibromyalgia, MELANY D/Reflux, Hyperlipidemia, Hypertension, Rheumatoid Arthritis (RA), Thyroid Disorder, Vascular Disorder Additional Past Medical History / Comment(s): diet controlled type II diabetic, HERNIATED DISCS, SCIATIC NERVE PAIN, NEUROPATHY,IBS. 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 TLH for benign reasons. History of Any Multi-Drug Resistant Organisms: None Reported Past Surgical History: Hysterectomy, Uterine Ablation Additional Past Surgical History / Comment(s): Total laparoscopic hysterectomy 2012. Colonoscopy 2019. Past Anesthesia/Blood Transfusion Reactions: No Reported Reaction Past Psychological History: Anxiety, Depression Smoking Status: Current every day smoker (Approximate 6 cigarettes per day) Past Alcohol Use History: Occasional (3 per week) Additional Past Alcohol Use History / Comment(s): started smoking age 25 (1994) Past Drug Use History: None Reported Additional History: She is single and has not been seeing anybody this year. She has not been sexually active. She is considered disabled. - Past Family History Father Family Medical History: Cancer Additional Family Medical History / Comment(s): Gastric cancer. Grandmother had breast cancer. Mother Family Medical History: Congestive Heart Failure (CHF), Hyperlipidemia, Hypertension Additional Family Medical History / Comment(s): Grandmother had an [place]. Medications and Allergies Home Medications Medication Instructions Recorded Confirmed Type Enalapril [Vasotec] 20 mg PO BID 09/10/16 10/10/19 History Furosemide [Lasix] 20 mg PO DAILY 09/10/16 10/10/19 History Pantoprazole Sodium [Protonix] 40 mg PO DAILY 09/10/16 10/10/19 History amLODIPine [Norvasc] 10 mg PO DAILY 09/10/16 10/10/19 History traMADol HCL [Ultram] 50 mg PO Q6H PRN 09/10/16 10/10/19 History Atorvastatin [Lipitor] 40 mg PO DAILY 02/09/18 10/10/19 History Carvedilol [Coreg] 12.5 mg PO BID 02/09/18 10/10/19 History Aspirin 81 mg PO DAILY 06/17/18 10/10/19 History Etanercept [Enbrel] 50 mg SQ WE 06/17/18 10/10/19 History Folic Acid 1 mg PO DAILY 06/17/18 10/10/19 History Gabapentin [Neurontin] 300 mg PO BID 06/17/18 10/10/19 History Methotrexate Sodium [Methotrexate] 15 mg PO WE 06/17/18 10/10/19 History ALPRAZolam [Xanax] 0.5 mg PO HS PRN 10/10/19 10/10/19 History Cholecalciferol [Vitamin D3 (25 5,000 unit PO DAILY 10/10/19 10/10/19 History Mcg = 1000 Iu)] Sertraline [Zoloft] 25 mg PO DAILY 10/10/19 10/10/19 History Allergies Allergy/AdvReac Type Severity Reaction Status Date / Time Tetracyclines Allergy Rash/Hives Verified 10/10/19 15:16 Exam Vital Signs Temp Pulse Resp BP Pulse Ox 10/10/19 15:19 98.5 F 68 20 126/70 99 Intake and Output 10/10/19 10/10/19 10/10/19 06:59 14:59 22:59 Other: Weight 103.873 kg Height 5 feet 9 inches, weight 229 pounds, BMI 33.8. This is a well-developed well-nourished heavyset black female who is alert and oriented times 3 in no acute distress. HEENT: Within normal limits. NECK: Supple without mass or thyromegaly. CHEST AND LUNGS: Clear to auscultation. HEART: Regular rate and rhythm. BREASTS: Are without mass or discharge. There are 2 sebaceous cysts on the right breast, one at the 12 o'clock position and 1 at 3 o'clock position. Each measures 1 cm. There benign-appearing and flat. There is no drainage at this time. There is no erythema or subcutaneous induration. AXILLARY EXAM: Negative for adenopathy. BACK: Negative for CVA tenderness. ABDOMEN: Soft, obese, nontender, without palpable masses. PELVIC EXAM: External genitalia appears normal. Vagina appears normal. There is some whitish cream and the patient states she has recently inserted her estrogen vaginal cream. There is no odor. There is no evidence of prolapse. Bimanual examination is negative for mass or tenderness. RECTAL EXAM: Rectovaginal exam is negative for mass or tenderness and is negative for occult blood. EXTREMITIES: Nontender. IMPRESSION: 1. 49-year-old female status post TLH for benign reasons with normal gynecologic exam. 2. Benign appearing sebaceous cysts on the left breast. 3. Doing well with Premarin vaginal cream for vaginal dryness. 4. The patient is requesting STD screening. PLAN: 1. Pap smears have been discontinued. 2. Self breast awareness was discussed with the patient. 3. Screening mammogram will be done today. 4. Continue Premarin vaginal cream 1g into the vagina 2 times weekly. The electronic prescription will be sent to [facility] pharmacy on . 5. Neosporin to the sebaceous cysts as directed. She can also use warm compresses as needed. 6. GC and chlamydia testing were obtained from the vagina. Blood tests will also include HIV, RPR, hepatitis B surface antigen, and hepatitis C antibody. 7. She was advised to return in one year for her annual well woman exam.
--- NOTE | 2019-10-11 11:05 | MM ---
Reason for exam: screening (asymptomatic). Last mammogram was performed 1 year and 3 months ago. History: Patient is postmenopausal. Family history of breast cancer in maternal grandmother at age 86. Took hormonal contraceptives for 6 years beginning at age 18. Physical Findings: A clinical breast exam by your physician is recommended on an annual basis and results should be correlated with mammographic findings. MG 3D Screening Mammo W/Cad Bilateral CC and MLO view(s) were taken. Prior study comparison: June 28, 2018, bilateral MG 3d screening mammo w/cad. December 28, 2017, left breast MG 3d diag mammo w/cad LT. The breast tissue is almost entirely fat. No significant changes when compared with prior studies. ASSESSMENT: Benign, BI-RAD 2 RECOMMENDATION: Routine screening mammogram of both breasts in 1 year.
[2019-10-11 15:04] LABS: C. trachomatis,PCR Negative (Neg,Equiv); Chlamydia trachomatis Source Vagina; N. gonorrhoeae,PCR Negative (Neg,Equiv); Neisseria Source Vagina
== END | disposition home or self-care (01) ==
LOC: WWCWWP 15:10
PROVIDERS: ATTEND Obstetrics & Gynecology
DX: Z12.31 Encounter for screening mammogram for malignant neoplasm of breast (principal); Z11.3 Encounter for screening for infections with a predominantly sexual mode of transmission
CPT/HCPCS: 77063; 77067; 87491; 87591

== ENCOUNTER 2020-01-01 19:25 | Observation (INO) | payer MEDICARE, OTHER ==
--- NOTE | 2020-01-01 19:55 | ED ---
Chest Pain HPI - General Chief Complaint: Chest Pain Stated Complaint: Chest Pain Time Seen by Provider: 01/01/20 19:30 Source: patient Mode of arrival: wheelchair Limitations: no limitations - History of Present Illness Initial Comments: Patient is a 49-year-old female past medical history of heart failure, diabetes, rheumatoid arthritis presents emergency room with reported chest pain and cough. Patient states that her symptoms have been waxing and waning. She does have sick contacts with similar symptoms. Has a productive cough with yellow sputum production. Denies hemoptysis. Admits to associated shortness of breath. Denies any history of underlying lung issues. Does report a history of congestive heart failure and she is on diuretics. States recent taken as directed however continues to have lower extremity edema and worsening shortness of breath. She saw her primary care physician who recommended that she get testing for Covid however has not yet. Denies any fevers or chills. No nausea or vomiting. Denies history of coronary disease. Does admit to a history of rheumatoid arthritis. No ripping or tearing sensation to her back. No history of DVT. No other alleviating, Perceptin or modifying factors - Related Data Home Medications Medication Instructions Recorded Confirmed Enalapril [Vasotec] 20 mg PO BID 09/10/16 01/01/20 Furosemide [Lasix] 20 mg PO DAILY 09/10/16 01/01/20 Pantoprazole Sodium [Protonix] 40 mg PO DAILY 09/10/16 01/01/20 amLODIPine [Norvasc] 10 mg PO DAILY 09/10/16 01/01/20 Atorvastatin [Lipitor] 40 mg PO DAILY 02/09/18 01/01/20 Carvedilol [Coreg] 12.5 mg PO BID 02/09/18 01/01/20 Aspirin 81 mg PO DAILY 06/17/18 01/01/20 Etanercept [Enbrel] 50 mg SQ WE 06/17/18 01/01/20 Folic Acid 1 mg PO DAILY 06/17/18 01/01/20 metHOTREXate sodium [Methotrexate] 20 mg PO WE 06/17/18 01/01/20 Cholecalciferol [Vitamin D3 (25 5,000 unit PO DAILY 10/10/19 01/01/20 Mcg = 1000 Iu)] ALPRAZolam [Xanax] 0.25 mg PO BID 01/01/20 01/01/20 Dicyclomine [Bentyl] 20 mg PO BID 01/01/20 01/01/20 Estrogens, Conjugated Cream 1 gram VAGINAL TH@0800,199901/01/20 01/01/20 [Premarin Cream] Fluticasone Nasal [place] [Flonase 1 spray EA NOSTRIL DAILY PRN 01/01/20 01/01/20 Nasal Ponder] Pyridoxine HCl (Vitamin B6) 100 mg PO DAILY 01/01/20 01/01/20 [Vitamin B-6] Sertraline [Zoloft] 50 mg PO DAILY 01/01/20 01/01/20 Allergies Allergy/AdvReac Type Severity Reaction Status Date / Time Tetracyclines Allergy Rash/Hives Verified 01/01/20 22:51 Review of Systems ROS Statement: Those systems with pertinent positive or pertinent negative responses have been documented in the HPI. ROS Other: All systems not noted in ROS Statement are negative. EKG Findings - EKG Comments: EKG Findings:: EKG demonstrates normal sinus rhythm with a ventricular rate of 87. GA interval 160. QS E4. QTC of 435. No acute ST segment elevations or depressions concerning for ischemic changes Past Medical History Past Medical History: Heart Failure, Diabetes Mellitus, Fibromyalgia, GERD/Reflux, Hyperlipidemia, Hypertension, Rheumatoid Arthritis (RA), Thyroid Disorder, Vascular Disorder Additional Past Medical History / Comment(s): diet controlled type II diabetic, HERNIATED DISCS, SCIATIC NERVE PAIN, NEUROPATHY,IBS. 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 TLH for benign reasons. History of Any Multi-Drug Resistant Organisms: None Reported Past Surgical History: Hysterectomy, Uterine Ablation Additional Past Surgical History / Comment(s): Total laparoscopic hysterectomy 2012. Colonoscopy 2019. Past Anesthesia/Blood Transfusion Reactions: No Reported Reaction Past Psychological History: Anxiety, Depression Smoking Status: Current every day smoker Past Alcohol Use History: Occasional Past Drug Use History: None Reported - Past Family History Father Family Medical History: Cancer Additional Family Medical History / Comment(s): Gastric cancer. Grandmother had breast cancer. Mother Family Medical History: Congestive Heart Failure (CHF), Hyperlipidemia, Hypertension Additional Family Medical History / Comment(s): Grandmother had an [place]. General Exam Limitations: no limitations General appearance: alert, in no apparent distress Head exam: Present: atraumatic, normocephalic, normal inspection Eye exam: Present: normal appearance, PERRL, EOMI. Absent: scleral icterus, conjunctival injection, periorbital swelling ENT exam: Present: normal exam, mucous membranes moist Neck exam: Present: normal inspection. Absent: tenderness, meningismus, lymphadenopathy Respiratory exam: Present: normal lung sounds bilaterally. Absent: respiratory distress, wheezes, rales, rhonchi, stridor Cardiovascular Exam: Present: regular rate, normal rhythm, normal heart sounds. Absent: systolic murmur, diastolic murmur, rubs, gallop, clicks GI/Abdominal exam: Present: soft, normal bowel sounds. Absent: distended, tenderness, guarding, rebound, rigid Extremities exam: Present: normal inspection, full ROM, normal capillary refill. Absent: tenderness, pedal edema, joint swelling, calf tenderness Back exam: Present: normal inspection Neurological exam: Present: alert, oriented X3, CN II-XII intact Psychiatric exam: Present: normal affect, normal mood Skin exam: Present: warm, dry, intact, normal color. 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 A thorough history and physical exam was performed. Vitals are obtained. Patient maintains a sat of 98% on room air with normal heart rate. 12-lead EKG was performed. Patient placed on continuous pulse ox and cardiac monitoring. Laboratory studies were conducted. D-dimer elevated at 3.13. Because of her lower trauma swelling patient was sent for CT. CT for pulmonary embolism. cardiomegaly. Patient was given a dose of Toradol. Has persistent pain and therefore she is given a dose of nitro. I recommended hospital admission for which patient did agree to. Breathing treatments and steroids will be ordered. Patient did receive an aspirin. Troponins will be trended overnight. Discussed the case with Dr. Jaclyn who accepted admission. Patient is currently awaiting a bed on the floor. Covid is pending Disposition Clinical Impression: Chest pain, Cough Disposition: ADMITTED IP TO THIS HOSP Condition: Stable Is patient prescribed a controlled substance at d/c from ED?: No Decision to Admit Reason: Admit from EC Decision Date: 01/01/20 Decision Time: 21:51
[2020-01-01] MEDS ORDERED: KETOROLAC 15 MG/ML 1 ML VIAL IVP STA (20:03)
[2020-01-01] MEDS ORDERED: ALBUTEROL HFA INHALER INHALATION STA (20:03)
[2020-01-01 20:13] LABS: Basophils % (A) 1 %; Eosinophils # (A) 0.7 k/uL (0-0.7); Eosinophils % (A) 7 %; HCT 40.1 % (34.0-46.0); HGB 12.2 gm/dL (11.4-16.0); Hypochromasia Moderate; Lymphocytes # (A) 2.8 k/uL (1.0-4.8); Lymphocytes % (A) 32 %; MCH 27.3 pg (25.0-35.0); MCHC 30.4 g/dL (31.0-37.0); MCV 89.8 fL (80.0-100.0); Monocytes # (A) 0.5 k/uL (0-1.0); Monocytes % (A) 6 %; Neutrophils # (A) 4.5 k/uL (1.3-7.7); Neutrophils % (A) 52 %; Platelet Count 285 k/uL (150-450); RBC 4.47 m/uL (3.80-5.40); RDW 14.8 % (11.5-15.5); WBC 8.7 k/uL (3.8-10.6)
[2020-01-01 20:20] LABS: Anion Gap 6 mmol/L; Carbon Dioxide 27 mmol/L (22-30); Chloride 108 mmol/L (98-107); Glucose 102 mg/dL (74-99); Potassium 4.2 mmol/L (3.5-5.1); Sodium 141 mmol/L (137-145)
[2020-01-01 20:21] LABS: ALT 14 U/L (4-34); AST 23 U/L (14-36); African American GFR (CKD) >90 (>60 ml/min/1.73 sqM); Albumin 3.8 g/dL (3.5-5.0); Alkaline Phosphatase 121 U/L (38-126); Blood Urea Nitrogen 9 mg/dL (7-17); Calcium 9.2 mg/dL (8.4-10.2); Magnesium 1.8 mg/dL (1.6-2.3); Non-African American GFR(CKD) >90 (>60 ml/min/1.73 sqM); Total Bilirubin 0.5 mg/dL (0.2-1.3); Total Protein 7.1 g/dL (6.3-8.2)
[2020-01-01] MEDS ORDERED: ALBUTEROL NEBULIZED 2.5 MG/3 ML INHALATION STA (20:22)
[2020-01-01 20:27] LABS: INR 0.9 (<1.2); Partial Thromboplastin Time 22.1 sec (22.0-30.0); Prothrombin Time 9.7 sec (9.0-12.0)
--- NOTE | 2020-01-01 20:34 | XR ---
EXAMINATION TYPE: XR chest 2V DATE OF EXAM: 01/01/2020 COMPARISON: 02/09/2018 HISTORY: Chest pain TECHNIQUE: FINDINGS: Heart is slightly enlarged. There is no heart failure. Lungs are clear of consolidation. Th ere is no pleural effusion. Bony thorax is intact. There are chest leads. IMPRESSION: Mild cardiomegaly. No active cardiopulmonary disease. No change.
[2020-01-01] MEDS ORDERED: NITROGLYCERIN SL TABS 0.4 MG TAB SUBLINGUAL STA (21:34)
--- NOTE | 2020-01-01 21:42 | CT ---
EXAMINATION TYPE: CT chest angio for PE DATE OF EXAM: 01/01/2020 COMPARISON: 02/09/2018 HISTORY: chest pain, SOB, elevated d-dimer CT DLP: 438.7 mGycm Automated exposure control for dose reduction was used. CONTRAST: Performed with IV Contrast, patient injected with 80cc mL of Isovue 370. There are 3-D post processed images. There is mild pulmonary emphysema. There is minimal subsegmental atelectasis at the lung bases. There is no pleural effusion. Heart is enlarged. There is no pericardial effusion. There are bilateral enl arged bronchial lymph nodes measuring up to 1.5 cm. There are a few anterior tracheal lymph nodes up to 1 cm. Thoracic aorta is intact. There is no aneurysm or dissection. There is normal contrast opacification of the pulmonary arteries. There are no filling defects. Bony thorax is intact. There is no compression fracture in the thoracic spine. IMPRESSION: No evidence of pulmonary embolism. Emphysema. Mild bronchial adenopathy. Adenopathy not significantly different than old exam. Cardiomeg annelise. Heart appears increased slightly compared to old exam.
[2020-01-01] MEDS ORDERED: NALOXONE 0.4 MG/ML 1 ML VIAL IV PRN (21:49)
[2020-01-01] MEDS ORDERED: ASPIRIN 81 MG PO STA (21:52)
[2020-01-01] MEDS ORDERED: methylPREDNISolone SOD SUCCI 125 MG/2 ML VIAL IV STA (22:17)
[2020-01-01] MEDS ORDERED: MORPHINE SULFATE 4 MG/ML SYRINGE IVP STA (23:21)
[2020-01-01] MEDS ORDERED: ALPRAZolam 0.5 MG TAB PO STA (23:22)
[2020-01-02 00:05] LABS: Glucose,Whole Blood 225 mg/dL (75-99)
[2020-01-02] MEDS ORDERED: FLUTICASONE 50MCG/SPRAY NASAL 16GM EA NOSTRIL PRN (00:56)
--- NOTE | 2020-01-02 01:06 | P.HPIM ---
History of Present Illness H&P Date: 01/01/20 Chief Complaint: Chest pain 49-year-old female with questionable history of congestive heart failure, diabetes mellitus, rheumatoid arthritis, fibromyalgia Patient comes in with three-week history of productive cough slightly yellowish in color no hemoptysis. However today she started experiencing severe central chest pain more pleuritic in nature not related to activity nonexertional. Patient got concerned she tried some Tums without any benefit and eventually decided to come to the hospital for evaluation. Patient denies any associated sweating lightheadedness or palpitations. She reports some shortness of breath when she is trying to take a deep breath as pain limits her breathing. Patient reports that pain is 10 out of 10 in severity short lived retrosternal nonradiating and mainly with taking deep breaths or coughing. She denies any nausea or vomiting denies any GI bleeding denies any hemoptysis denies any trauma to the chest she reports recent traveling back in early November to [place]. Denies any recent hospitalization or any diagnoses of cancer. She denies any history of blood clots. Patient denies any sore throat denies any runny nose denies any body aches out of the usual fibromyalgia pain. She denies any loss of taste or smell sensation denies any fevers or chills. She admits to positive sick contacts with patients with upper respiratory infection symptoms however no known Covid patient's In the ED she had an elevated d-dimer CT angiogram the chest showed no acute PE, also showed some bronchial adenopathy unchanged from prior imaging in the past. EKG showed normal sinus rhythm troponins are negative 2 Patient admitted for chest pain workup to rule out acute coronary syndrome Review of Systems Pertinent positives as noted in HPI. All other systems were reviewed and are negative Past Medical History Past Medical History: Heart Failure, Diabetes Mellitus, Fibromyalgia, GERD/Reflux, Hyperlipidemia, Hypertension, Rheumatoid Arthritis (RA), Thyroid Di sorder, Vascular Disorder Additional Past Medical History / Comment(s): ,, Hydradenitis suppurativa,, diet controlled type II diabetic, HERNIATED DISCS, SCIATIC NERVE PAIN, N EUROPATHY,IBS. 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 TLH for benign reasons. History of Any Multi-Drug Resistant Organisms: None Reported Past Surgical History: Hysterectomy, Uterine Ablation Additional Past Surgical History / Comment(s): Total laparoscopic hysterectomy 2013. Colonoscopy 2019. Past Anesthesia/Blood Transfusion Reactions: No Reported Reaction Past Psychological History: Anxiety, Depression Smoking Status: Current every day smoker Past Alcohol Use History: Occasional Past Drug Use History: None Reported - Past Family History Father Family Medical History: Cancer Additional Family Medical History / Comment(s): Gastric cancer. Grandmother had breast cancer. Mother Family Medical History: Congestive Heart Failure (CHF), Hyperlipidemia, Hypertension Additional Family Medical History / Comment(s): Grandmother had an [place]. Medications and Allergies Home Medications Medication Instructions Recorded Confirmed Type Enalapril [Vasotec] 20 mg PO BID 09/10/16 01/01/20 History Furosemide [Lasix] 20 mg PO DAILY 09/10/16 01/01/20 History Pantoprazole Sodium [Protonix] 40 mg PO DAILY 09/10/16 01/01/20 History amLODIPine [Norvasc] 10 mg PO DAILY 09/10/16 01/01/20 History Atorvastatin [Lipitor] 40 mg PO DAILY 02/09/18 01/01/20 History Carvedilol [Coreg] 12.5 mg PO BID 02/09/18 01/01/20 History Aspirin 81 mg PO DAILY 06/17/18 01/01/20 History Etanercept [Enbrel] 50 mg SQ WE 06/17/18 01/01/20 History Folic Acid 1 mg PO DAILY 06/17/18 01/01/20 History metHOTREXate sodium [Methotrexate] 20 mg PO WE 06/17/18 01/01/20 History Cholecalciferol [Vitamin D3 (25 5,000 unit PO DAILY 10/10/19 01/01/20 History Mcg = 1000 Iu)] ALPRAZolam [Xanax] 0.25 mg PO BID 01/01/20 01/01/20 History Dicyclomine [Bentyl] 20 mg PO BID 01/01/20 01/01/20 History Estrogens, Conjugated Cream 1 gram VAGINAL TH@0800,2000 01/01/20 01/01/20 History [Premarin Cream] Fluticasone Nasal [place] [Flonase 1 spray EA NOSTRIL DAILY PRN 01/01/20 01/01/20 History Nasal [place]] Pyridoxine HCl (Vitamin B6) 100 mg PO DAILY 01/01/20 01/01/20 History [Vitamin B-6] Sertraline [Zoloft] 50 mg PO DAILY 01/01/20 01/01/20 History Allergies Allergy/AdvReac Type Severity Reaction Status Date / Time Tetracyclines Allergy Rash/Hives Verified 01/01/20 22:51 Physical Exam Vitals: Vital Signs Temp Pulse Pulse Resp BP Pulse Ox 01/01/20 21:36 76 20 141/92 98 01/01/20 20:43 78 01/01/20 20:37 79 01/01/20 20:18 86 01/01/20 19:30 98.8 F 82 18 141/88 97 Intake and Output 01/01/20 01/01/20 01/01/20 06:59 14:59 22:59 Other: Weight 101.151 kg Constitutional: No acute distress, conversant, pleasant Eyes: Anicteric sclerae, moist conjunctiva, Pupils equal round reactive to light ENMT: NC/AT Oropharynx clear, no erythema, or exudates Neck: Supple, FROM, no masses, or JVD No carotid bruits No thyromegaly Lungs: Clear to auscultation Clear to percussion Normal respiratory effort, no accessory muscle use Cardiovascular: Heart regular in rate and rhythm, No murmurs, gallops, or rubs No peripheral edema Abdominal: Soft Tenderness to deep palpation of the epigastric region,, no guarding, rebound or rigidity Abdomen moving with respiration Normoactive bowel sounds No hepatomegaly, No splenomegaly No palpable mass No abdominal wall hernia noted Skin: Normal temperature, tone, texture, turgor No induration No subcutaneous nodules No rash, lesions No ulcers Extremities: No digital cyanosis No clubbing Pedal pulses intact and symmetrical Radial pulses intact and symmetrical No calf tenderness Psychiatric: Alert and oriented to person, place and time Appropriate affect fair judgement Neuro Muscles Strength 5/5 in all 4 extremities Sensation to light touch grossly present throughout Cranial nerves II-XII grossly intact No focal sensory deficits Lymphatics: no palpable cervical or supraclavicular , or inguinal lymph nodes Results CBC & Chem 7: 01/01/20 19:46 01/01/20 19:46 Labs: Abnormal Lab Results - Last 24 Hours (Table) 01/01/20 01/01/20 01/01/20 Range/Units 19:46 19:46 19:46 MCHC 30.4 L (31.0-37.0) g/dL D-Dimer 3.13 H (<0.60) mg/L FEU Chloride 108 H (98-107) mmol/L Glucose 102 H (74-99) mg/dL Assessment and Plan Assessment: Atypical chest pain rule out acute coronary syndrome Pain has pleuritic chest pain characteristics could be related to viral upper respiratory infection Epigastric pain could be suggestive of gastritis Plan Supportive care Trend troponins Cardiac monitoring Pain control with morphine and will add some Xanax for anxiety Patient had no relief with nitro or with Tums PPI Troponins negative 2 EKG showed normal sinus rhythm CT angiogram of the chest showed no acute PE Check Covid testing Continue to monitor off antibiotics Chronic conditions Diabetes mellitus, insulin sliding scale Rheumatoid arthritis Questionable history of congestive heart failure most recent echocardiogram from 2018 showed left ventricular ejection fraction of about 55% CODE STATUS: Full code DVT prophylaxis: Upper and subcu 3 times a day Discussed with: Patient, ER, RN Anticipated length of stay less than [address]: Home A total of 65 minutes was spent on the care of this complex patient more than 50% of the time was spent in counseling and care coordination.
[2020-01-02] MEDS: lisinopriL 20 MG TAB PO SCH ×3 (01:22→13:53)
[2020-01-02] MEDS: carvediloL 12.5 MG TAB PO SCH ×2 (01:23→08:34)
[2020-01-02] MEDS: MORPHINE SULFATE 4 MG/ML SYRINGE IVP PRN ×3 (04:15→15:32)
[2020-01-02 06:40] LABS: Glucose,Whole Blood 207 mg/dL (75-99)
[2020-01-02] MEDS: ALBUTEROL NEBULIZED 2.5 MG/3 ML INHALATION SCH ×3 (07:51→16:53)
[2020-01-02] MEDS ORDERED: HEPARIN SODIUM,PORCINE 5,000 UNIT/ML 1 ML VIAL SQ SCH (08:00)
[2020-01-02 08:15] LABS: African American GFR (CKD) >90 (>60 ml/min/1.73 sqM); Anion Gap 8 mmol/L; Blood Urea Nitrogen 10 mg/dL (7-17); Calcium 9.1 mg/dL (8.4-10.2); Carbon Dioxide 24 mmol/L (22-30); Chloride 106 mmol/L (98-107); Glucose 183 mg/dL (74-99); Non-African American GFR(CKD) >90 (>60 ml/min/1.73 sqM); Potassium 4.1 mmol/L (3.5-5.1); Sodium 138 mmol/L (137-145)
[2020-01-02 08:16] LABS: Basophils % (A) 0 %; Eosinophils # (A) 0.1 k/uL (0-0.7); Eosinophils % (A) 2 %; HCT 38.5 % (34.0-46.0); HGB 11.7 gm/dL (11.4-16.0); Hypochromasia Marked; Lymphocytes # (A) 1.1 k/uL (1.0-4.8); Lymphocytes % (A) 12 %; MCH 27.5 pg (25.0-35.0); MCHC 30.3 g/dL (31.0-37.0); MCV 90.8 fL (80.0-100.0); Mean Platelet Volume 7.9; Monocytes # (A) 0.1 k/uL (0-1.0); Monocytes % (A) 1 %; Neutrophils % (A) 85 %; Platelet Count 255 k/uL (150-450); RBC 4.25 m/uL (3.80-5.40); RDW 14.7 % (11.5-15.5); WBC 9.3 k/uL (3.8-10.6)
[2020-01-02] MEDS: INSULIN ASPART (NovoLOG) 100 UNIT/ML VIAL SQ SCH ×2 (08:26→13:53)
[2020-01-02] MEDS ORDERED: ASPIRIN 325 MG TAB PO SCH (09:00)
[2020-01-02] MEDS ORDERED: ATORVASTATIN 40 MG TAB PO SCH (09:00)
[2020-01-02] MEDS ORDERED: DICYCLOMINE 20 MG TAB PO SCH (09:00)
[2020-01-02] MEDS ORDERED: SERTRALINE 50 MG TAB PO SCH (09:00)
[2020-01-02] MEDS ORDERED: ALPRAZolam 0.25 MG TAB PO SCH (09:00)
[2020-01-02] MEDS ORDERED: PANTOPRAZOLE 40 MG TABLET PO SCH (09:00)
[2020-01-02] MEDS ORDERED: FUROSEMIDE 20 MG TAB PO SCH (09:00)
[2020-01-02] MEDS ORDERED: amLODIPine 10 MG TAB PO SCH (09:00)
--- NOTE | 2020-01-02 11:03 | P.CRDCN ---
History of Present Illness Consult date: 01/02/20 History of present illness: CHIEF COMPLAINT: Chest pain HISTORY OF PRESENT ILLNESS: This is a 49-year old female with a past medical history significant for diabetes mellitus, hypertension, hyperlipidemia, and nicotine dependence. Patient follows in the office with Dr. Denson. We have been asked to see the patient in consultation for chest pain. Patient reports she had a upper respiratory infection in November with some shortness of breath and chest congestion. She reports this went away on its own and then at the beginning of this month she began having the same symptoms. She had a telehealth visit with her PCP who wanted her to get tested for Covid. Patient states she was having left sided chest pain that radiated to her jaw and her arm. She reports the pain is worse with deep inspiration. She has chest wall tenderness with palpation. She denies any trauma to the chest. DIAGNOSTICS: EKG reveals sinus rhythm. Chest xray mild cardiomegaly. No active cardiopulmonary disease. CTA: Negative for PE Laboratory data: WBC 9.3. Hemoglobin 11.7. Platelet count 255. Sodium 138. Potassium 4.1. BUN 10. Creatinine 0.42. Troponin negative 3. D-dimer 3.13. Current home cardiac medications include Norvasc 10 mg daily, aspirin 81 mg daily, Lasix 20 mg daily, Vasotec 20mg twice a day, Coreg 12.5 mg twice a day, and Lipitor 40 mg daily. REVIEW OF SYSTEMS: At the time of my exam: CONSTITUTIONAL: Denies fever or chills. HEENT: Denies blurred vision, vision changes, or eye pain. Denies hemoptysis CARDIOVASCULAR: Denies chest pain, orthopnea, PND or palpitations RESPIRATORY: No shortness of breath. GASTROINTESTINAL: Denies abdominal pain. Denies nausea or vomiting. HEMATOLOGIC: Denies bleeding disorders. GENITOURINARY: Denies any blood in urine. SKIN: Denies pruitis. Denies rash. PHYSICAL EXAM: VITAL SIGNS: Reviewed. GENERAL: Well-developed in no acute distress. HEENT: Head is normocephalic. Pupils are equal, round. Sclerae anicteric. Mucous membranes of the mouth are moist. Neck supple. No JVD or thyromegaly LUNGS: Respirations even and unlabored. Lungs essentially clear to auscultation bilaterally. HEART: Regular rate and rhythm. S1 and S2 heard. ABDOMEN: Soft. Nondistended. Nontender. EXTREMITIES: Normal range of motion. No clubbing or cyanosis. Peripheral pulses intact. No lower extremity edema NEUROLOGIC: Awake and alert. Oriented x 3. ASSESSMENT: Atypical chest pain, pleuritic in nature Hypertension Hyperlipidemia Diabetes mellitus, type II Nicotine dependence PLAN: An acute coronary event has been ruled out Resume home cardiac medications Obtain 2D echo to assess cardiac structure and function If echo does not show any significant abnormalities, patient may be discharged home from a cardiac standpoint and follow up outpatient with Dr. Denson. Nurse practitioner note has been reviewed by physician. Signing provider agrees with the documented findings, assessment, and plan of care. Past Medical History Past Medical History: Heart Failure, Diabetes Mellitus, Fibromyalgia, GERD/Reflux, Hyperlipidemia, Hypertension, Rheumatoid Arthritis (RA), Thyroid Disorder, Vascular Disorder Additional Past Medical History / Comment(s): ,, Hydradenitis suppurativa,, diet controlled type II diabetic, HERNIATED DISCS, SCIATIC NERVE PAIN, NEUROPATHY,IBS. Past OUTPATIENT COORDINATOR history: trichomonas many years ago. TLH for benign reasons. History of Any Multi-Drug Resistant Organisms: None Reported Past Surgical History: Hysterectomy, Uterine Ablation Additional Past Surgical History / Comment(s): Total laparoscopic hysterectomy 2013. Colonoscopy 2019. Past Anesthesia/Blood Transfusion Reactions: No Reported Reaction Past Psychological History: Anxiety, Depression Smoking Status: Current every day smoker Past Alcohol Use History: Occasional Past Drug Use History: None Reported - Past Family History Father Family Medical History: Cancer Additional Family Medical History / Comment(s): Gastric cancer. Grandmother had breast cancer. Mother Family Medical History: Congestive Heart Failure (CHF), Hyperlipidemia, Hypertension Additional Family Medical History / Comment(s): Grandmother had an PA. Medications and Allergies Home Medications Medication Instructions Recorded Confirmed Type Enalapril [Vasotec] 20 mg PO BID 09/10/16 01/01/20 History Furosemide [Lasix] 20 mg PO DAILY 09/10/16 01/01/20 History Pantoprazole Sodium [Protonix] 40 mg PO DAILY 09/10/16 01/01/20 History amLODIPine [Norvasc] 10 mg PO DAILY 09/10/16 01/01/20 History Atorvastatin [Lipitor] 40 mg PO DAILY 02/09/18 01/01/20 History Carvedilol [Coreg] 12.5 mg PO BID 02/09/18 01/01/20 History Aspirin 81 mg PO DAILY 06/17/18 01/01/20 History Etanercept [Enbrel] 50 mg SQ WE 06/17/18 01/01/20 History Folic Acid 1 mg PO DAILY 06/17/18 01/01/20 History metHOTREXate sodium [Methotrexate] 20 mg PO WE 06/17/18 01/01/20 History Cholecalciferol [Vitamin D3 (25 5,000 unit PO DAILY 10/10/19 01/01/20 History Mcg = 1000 Iu)] ALPRAZolam [Xanax] 0.25 mg PO BID 01/01/20 01/01/20 History Dicyclomine [Bentyl] 20 mg PO BID 01/01/20 01/01/20 History Estrogens, Conjugated Cream 1 gram VAGINAL TH@0800,199901/01/20 01/01/20 History [Premarin Cream] Fluticasone Nasal [place] [Flonase 1 spray EA NOSTRIL DAILY PRN 01/01/20 01/01/20 History Nasal [place]] Pyridoxine HCl (Vitamin B6) 100 mg PO DAILY 01/01/20 01/01/20 History [Vitamin B-6] Sertraline [Zoloft] 50 mg PO DAILY 01/01/20 01/01/20 History Allergies Allergy/AdvReac Type Severity Reaction Status Date / Time Tetracyclines Allergy Rash/Hives Verified 01/01/20 22:51 Physical Exam Vitals: Vital Signs Temp Pulse Pulse Resp BP BP Pulse Ox 01/02/20 09:00 98 F 82 16 124/75 94 L 01/02/20 08:00 80 01/02/20 07:52 76 01/02/20 04:15 97.7 F 88 23 117/73 95 01/01/20 22:45 98 F 90 22 155/85 97 01/01/20 22:19 81 18 139/93 96 01/01/20 21:36 76 20 141/92 98 01/01/20 20:43 78 01/01/20 20:37 79 01/01/20 20:18 86 01/01/20 19:30 98.8 F 82 18 141/88 97 Intake and Output 01/01/20 01/02/20 01/02/20 22:59 06:59 14:59 Other: Voiding Method Toilet Toilet Toilet # Voids 1 1 1 Weight 101.151 kg Results 01/02/20 07:34 01/02/20 07:34 Cardiac Enzymes 01/01/20 01/01/20 01/01/20 Range/Units 19:46 19:46 22:17 AST 23 (14-36) U/L Troponin I <0.012 <0.012 (0.000-0.034) ng/mL 01/02/20 Range/Units 01:55 AST (14-36) U/L Troponin I <0.012 (0.000-0.034) ng/mL Coagulation 01/01/20 Range/Units 19:46 PT 9.7 (9.0-12.0) sec APTT 22.1 (22.0-30.0) sec CBC 01/01/20 01/02/20 Range/Units 19:46 07:34 WBC 8.7 9.3 (3.8-10.6) k/uL RBC 4.47 4.25 (3.80-5.40) m/uL Hgb 12.2 11.7 (11.4-16.0) gm/dL Hct 40.1 38.5 (34.0-46.0) % Plt Count 285 255 (150-450) k/uL Comprehensive Metabolic Panel 01/01/20 01/02/20 Range/Units 19:46 07:34 Sodium 141 138 (137-145) mmol/L Potassium 4.2 4.1 (3.5-5.1) mmol/L Chloride 108 H 106 (98-107) mmol/L Carbon Dioxide 27 24 (22-30) mmol/L BUN 9 10 (7-17) mg/dL Creatinine 0.53 0.42 L (0.52-1.04) mg/dL Glucose 102 H 183 H (74-99) mg/dL Calcium 9.2 9.1 (8.4-10.2) mg/dL AST 23 (14-36) U/L ALT 14 (4-34) U/L Alkaline Phosphatase 121 (38-126) U/L Total Protein 7.1 (6.3-8.2) g/dL Albumin 3.8 (3.5-5.0) g/dL Current Medications Generic Name Dose Route Start Last Admin Trade Name Freq PRN Reason Stop Dose Admin Albuterol Sulfate 2.5 mg 01/02/20 08:00 01/02/20 07:51 Albuterol Nebulized 2.5 Mg/3 Ml INHALATION 2.5 mg RT-QID CHETAN Administration Alprazolam 0.25 mg 01/02/20 09:00 01/02/20 08:31 Alprazolam 0.25 Mg Tab PO 0.25 mg BID CHETAN Administration Amlodipine Besylate 10 mg 01/02/20 09:00 01/02/20 08:31 Amlodipine 10 Mg Tab PO 10 mg DAILY CHETAN Administration Aspirin 81 mg 01/02/20 09:00 01/02/20 08:31 Aspirin 325 Mg Tab PO 81 mg DAILY CHETAN Administration Atorvastatin Calcium 40 mg 01/02/20 09:00 01/02/20 08:31 Atorvastatin 40 Mg Tab PO 40 mg DAILY CHETAN Administration Carvedilol 12.5 mg 01/02/20 01:00 01/02/20 08:34 Carvedilol 12.5 Mg Tab PO 12.5 mg BID-W/MEALS CHETAN Administration Dicyclomine HCl 20 mg 01/02/20 09:00 Dicyclomine 20 Mg Tab PO BID CHETAN Fluticasone Propionate 1 spray 01/02/20 00:56 Fluticasone 50mcg/[place] Nasal 16gm EA NOSTRIL DAILY PRN Allergy Symptoms Furosemide 20 mg 01/02/20 09:00 01/02/20 08:30 Furosemide 20 Mg Tab PO 20 mg DAILY CHETAN Administration Heparin Sodium (Porcine) 5,000 unit 01/02/20 08:00 01/02/20 08:31 Heparin Sodium,Porcine 5,000 Unit/Ml 1 Ml Vial SQ 5,000 unit Q8HR CHETAN Administration Insulin Aspart 0 unit 01/02/20 07:30 01/02/20 08:26 Insulin Aspart (Novolog) 100 Unit/Ml Vial SQ Not Given ACHS [facility] Protocol Lisinopril 40 mg 01/02/20 01:00 01/02/20 08:34 Lisinopril 20 Mg Tab PO Not Given BID CHETAN Morphine Sulfate 4 mg 01/02/20 00:58 01/02/20 04:15 Morphine Sulfate 4 Mg/Ml Syringe IVP 4 mg Q4HR PRN Administration Pain Naloxone HCl 0.2 mg 01/01/20 21:49 Naloxone 0.4 Mg/Ml 1 Ml Vial IV Q2M PRN Opioid Reversal Pantoprazole Sodium 40 mg 01/02/20 09:00 01/02/20 08:30 Pantoprazole 40 Mg Tablet PO 40 mg DAILY CHETAN Administration Sertraline HCl 50 mg 01/02/20 09:00 01/02/20 08:31 Sertraline 50 Mg Tab PO 50 mg DAILY CHETAN Administration Intake and Output 01/01/20 01/02/20 01/02/20 22:59 06:59 14:59 Other: Voiding Method Toilet Toilet Toilet # Voids 1 1 1 Weight 101.151 kg 01/02/20 07:34 01/02/20 07:34
--- NOTE | 2020-01-02 15:00 | ECHOF ---
Referral Reason:sob, cp MEASUREMENTS -------- HEIGHT: 177.8 cm WEIGHT: 101.2 kg BP: IVSd: 1.3 cm (0.6 - 1.1) LVIDd: 4.7 cm (3.9 - 5.3) LVPWd: 1.5 cm (0.6 - 1.1) EDV(Teich): 101 ml IVSs: 1.7 cm LVIDs: 2.5 cm LVPWs: 2.2 cm %IVS Thck: 39 % ESV(Teich): 22 ml EF(Teich): 78 % %FS: 46 % SV(Teich): 78 ml RVIDd: 2.4 cm (< 3.3) IVC: 13.65 mm Ao Diam: 2.7 cm (2.0 - 3.7) LA Diam: 2.6 cm (2.7 - 3.8) AV Cusp: 2.1 cm (1.5 - 2.6) EPSS: 0.4 cm MV E Henri: 0.83 m/s MV DecT: 200 ms MV Dec [place]: 4.1 m/s MV A Henri: 0.94 m/s MV E/A Ratio: 0.88 MV PHT: 58 ms MR Vmax: 1.69 m/s MR maxP.42 mmHg LVOT Vmax: 1.16 m/s LVOT maxP.35 mmHg AV Vmax: 1.76 m/s AV maxP.37 mmHg TR Vmax: 2.38 m/s TR maxP.65 mmHg RAP: 5.00 mmHg RVSP: 27.65 mmHg MV EF SLOPE: 67.10 mm/s (70 - 150) MV EXCURSION: 13.19 mm (> 18.000) FINDINGS -------- This was a technically adequate study. The left ventricular size is normal. There is moderate concentric left ventricular hypertrophy. O verall left ventricular systolic function is normal with, an EF between 55 - 60 %. The right ventricle is normal in size. The left atrial size is normal. The right atrial size is normal. Interatrial and interventricular septum intact. The aortic valve is trileaflet and appears structurally normal. The mitral valve is normal. There is trace mitral regurgitation. The tricuspid valve appears structurally normal. Trace tricuspid regurgitation present. Right vaishali tricular systolic pressure is normal at < 35 mmHg. There is no pulmonic regurgitation present. The aortic root size is normal. Normal inferior vena cava with normal inspiratory collapse consistent with estimated right atrial pre ssure of 5 mmHg. There is a small, generalized pericardial effusion present. CONCLUSIONS -------- 1. The left ventricular size is normal. 2. There is moderate concentric left ventricular hypertrophy. 3. Overall left ventricular systolic function is normal with, an EF between 55 - 60 %. 4. There is trace mitral regurgitation. 5. Trace tricuspid regurgitation present. 6. There is a small, generalized pericardial effusion present. SCHOOL PATROL: Juliann Briceño RDCS
--- NOTE | 2020-01-02 16:16 | P.DS ---
Providers Date of admission: 01/01/20 21:49 Expected date of discharge: 01/02/20 Attending physician: Lluvia Anaya MD Consults: 01/01/20 21:49 Consult Physician Urgent Consulting Provider: [facility] Consult Reason/Comments: acute chest pain, acute cough Do you want consulting provider notified?: Yes Primary care physician: Stated None Hospital Course: Patient comes in with three-week history of productive cough slightly yellowish in color no hemoptysis. However today she started experiencing severe central chest pain more pleuritic in nature not related to activity nonexertional. Patient got concerned she tried some Tums without any benefit and eventually decided to come to the hospital for evaluation. Patient denies any associated sweating lightheadedness or palpitations. She reports some shortness of breath when she is trying to take a deep breath as pain limits her breathing. In the ED she had an elevated d-dimer CT angiogram the chest showed no acute PE, also showed some bronchial adenopathy unchanged from prior imaging in the past. EKG showed normal sinus rhythm troponins are negative 3. Patient was placed on observation. She was seen and evaluated by cardiology. ACS ruled out. Echocardiogram showed preserved ejection fraction with no significant valvular abnormality. She was cleared by cardiology for discharge home. She was advised to take [id number] ibuprofen and cough medicine as needed. COVID-19 tests still pending. Patient was advised to call the lab in the next few days to obtain the results. Patient will be discharged home in a stable condition. For further details about this hospitalization please refer to the electronic chart. Patient Condition at Discharge: Stable Plan - Discharge Summary Discharge Rx Participant: No New Discharge Prescriptions: Continue amLODIPine [Norvasc] 10 mg PO DAILY Enalapril [Vasotec] 20 mg PO BID Pantoprazole Sodium [Protonix] 40 mg PO DAILY Furosemide [Lasix] 20 mg PO DAILY Carvedilol [Coreg] 12.5 mg PO BID Atorvastatin [Lipitor] 40 mg PO DAILY metHOTREXate sodium [Methotrexate] 20 mg PO WE Folic Acid 1 mg PO DAILY Aspirin 81 mg PO DAILY Etanercept [Enbrel] 50 mg SQ WE Cholecalciferol [Vitamin D3 (25 Mcg = 1000 Iu)] 5,000 unit PO DAILY Estrogens, Conjugated Cream [Premarin Cream] 1 gram VAGINAL TH@08,1999 Sertraline [Zoloft] 50 mg PO DAILY Fluticasone Nasal [place] [Flonase Nasal [place]] 1 spray EA NOSTRIL DAILY PRN PRN Reason: Allergy Symptoms Dicyclomine [Bentyl] 20 mg PO BID ALPRAZolam [Xanax] 0.25 mg PO BID Pyridoxine HCl (Vitamin B6) [Vitamin B-6] 100 mg PO DAILY Discharge Medication List Enalapril [Vasotec] 20 mg PO BID 09/10/16 [History] Furosemide [Lasix] 20 mg PO DAILY 09/10/16 [History] Pantoprazole Sodium [Protonix] 40 mg PO DAILY 09/10/16 [History] amLODIPine [Norvasc] 10 mg PO DAILY 09/10/16 [History] Atorvastatin [Lipitor] 40 mg PO DAILY 02/09/18 [History] Carvedilol [Coreg] 12.5 mg PO BID 02/09/18 [History] Aspirin 81 mg PO DAILY 06/17/18 [History] Etanercept [Enbrel] 50 mg SQ WE 06/17/18 [History] Folic Acid 1 mg PO DAILY 06/17/18 [History] metHOTREXate sodium [Methotrexate] 20 mg PO WE 06/17/18 [History] Cholecalciferol [Vitamin D3 (25 Mcg = 1000 Iu)] 5,000 unit PO DAILY 10/10/19 [History] ALPRAZolam [Xanax] 0.25 mg PO BID 01/01/20 [History] Dicyclomine [Bentyl] 20 mg PO BID 01/01/20 [History] Estrogens, Conjugated Cream [Premarin Cream] 1 gram VAGINAL TH@0800,2000 01/01/20 [History] Fluticasone Nasal [place] [Flonase Nasal [place]] 1 spray EA NOSTRIL DAILY PRN 01/01/20 [History] Pyridoxine HCl (Vitamin B6) [Vitamin B-6] 100 mg PO DAILY 01/01/20 [History] Sertraline [Zoloft] 50 mg PO DAILY 01/01/20 [History] Follow up Appointment(s)/Referral(s): None,Stated [Primary Care Provider] - 1-2 days Discharge Disposition: HOME SELF-CARE
[2020-01-02 16:38] VITALS: BP 126/78; RESP 18; TEMP 98.1
[2020-01-02 17:05] VITALS: PULSE 86
== END 2020-01-02 16:49 | disposition home or self-care (01) ==
LOC: EC 19:25 → 3NCARDOBS 21:49
PROVIDERS: ADMIT Internal Medicine; ATTEND Internal Medicine
DX: R07.9 Chest pain, unspecified (principal); R05 Cough; E11.9 Type 2 diabetes mellitus without complications; E78.5 Hyperlipidemia, unspecified; F17.200 Nicotine dependence, unspecified, uncomplicated; Z20.828 Contact with and (suspected) exposure to other viral communicable diseases; F32.9 Major depressive disorder, single episode, unspecified; F41.9 Anxiety disorder, unspecified; I11.0 Hypertensive heart disease with heart failure; I50.9 Heart failure, unspecified; M06.9 Rheumatoid arthritis, unspecified; M79.7 Fibromyalgia; Z79.82 Long term (current) use of aspirin; Z79.899 Other long term (current) drug therapy; Z80.0 Family history of malignant neoplasm of digestive organs; Z80.3 Family history of malignant neoplasm of breast; Z82.49 Family history of ischemic heart disease and other diseases of the circulatory system; Z90.710 Acquired absence of both cervix and uterus
CPT/HCPCS: 96372; 96375 ×2; 96376; 96374; 99285; 36415; 94640 ×3; 93005; 93306; 85379; 83880; 80053; 80048; 83605; 83735; 84484 ×2; 85025 ×2; 85610; 85730; 71046; 71275; G0378 ×2; U0003; J2270 ×2; J1644; J2930; J1885; Q9967

== ENCOUNTER → 2020-04-19 | Outpatient (CLI) | payer MEDICARE, OTHER ==
[2020-04-19 10:47] LABS: Anisocytosis Slight; Basophils # (A) 0.1 k/uL (0-0.2); Basophils % (A) 1 %; Eosinophils # (A) 0.4 k/uL (0-0.7); Eosinophils % (A) 4 %; HCT 39.9 % (34.0-46.0); HGB 12.7 gm/dL (11.4-16.0); Hypochromasia Slight; Lymphocytes # (A) 2.9 k/uL (1.0-4.8); Lymphocytes % (A) 28 %; MCH 29.2 pg (25.0-35.0); MCHC 31.9 g/dL (31.0-37.0); MCV 91.7 fL (80.0-100.0); Monocytes # (A) 0.4 k/uL (0-1.0); Monocytes % (A) 4 %; Neutrophils # (A) 6.2 k/uL (1.3-7.7); Neutrophils % (A) 62 %; Platelet Count 223 k/uL (150-450); RBC 4.35 m/uL (3.80-5.40); WBC 10.1 k/uL (3.8-10.6)
[2020-04-19 14:30] LABS: Erythrocyte Sedimentation Rate 7 mm/hr (0-20)
[2020-04-19 16:21] LABS: African American GFR (CKD) 98.9 (60.0-200.0); C Reactive Protein 0.9 mg/dL (0.0-0.8); Non-African American GFR(CKD) 85.4 (60.0-200.0)
== END | disposition home or self-care (01) ==
LOC: LABWHC1 09:34 → EDSTATUS 09:39
PROVIDERS: ATTEND Internal Medicine Rheumatology
DX: M06.9 Rheumatoid arthritis, unspecified (principal)
CPT/HCPCS: 36415; 82565; 84450; 84460; 85025; 85652; 86140

== ENCOUNTER → 2020-06-18 | Outpatient (CLI) | payer MEDICARE, OTHER ==
[2020-06-18 08:49] LABS: Basophils # (A) 0.1 k/uL (0-0.2); Basophils % (A) 1 %; Eosinophils # (A) 0.4 k/uL (0-0.7); Eosinophils % (A) 4 %; HCT 41.8 % (34.0-46.0); HGB 12.7 gm/dL (11.4-16.0); Hypochromasia Slight; Lymphocytes # (A) 3.6 k/uL (1.0-4.8); Lymphocytes % (A) 40 %; MCH 28.5 pg (25.0-35.0); MCHC 30.5 g/dL (31.0-37.0); MCV 93.6 fL (80.0-100.0); Mean Platelet Volume 7.6; Monocytes # (A) 0.4 k/uL (0-1.0); Monocytes % (A) 5 %; Neutrophils # (A) 4.4 k/uL (1.3-7.7); Neutrophils % (A) 49 %; Platelet Count 276 k/uL (150-450); RBC 4.46 m/uL (3.80-5.40); RDW 15.3 % (11.5-15.5)
[2020-06-18 08:51] LABS: Amorphous Sediment,Urine Rare /hpf; Appearance,Urine Cloudy (Clear); Bacteria,Urine Rare /hpf; Bilirubin,Urine Negative (Negative); Blood,Urine Negative (Negative); Color,Urine Light Yellow; Glucose,Urine (UA) Negative (Negative); Ketones,Urine Negative (Negative); Leukocyte Esterase,Urine Negative (Negative); Mucus,Urine Rare /hpf; Nitrite,Urine Negative (Negative); Protein,Urine Negative (Negative); RBC,Urine 7 /hpf (0-5); Specific Gravity,Urine 1.006 (1.001-1.035); Squamous Epithelial Cell,Urine 2 /hpf (0-4); Urobilinogen,Urine <2.0 mg/dL (<2.0); WBC,Urine 12 /hpf (0-5)
[2020-06-18 08:53] LABS: ALT 22 U/L (4-34); AST 24 U/L (14-36); African American GFR (CKD) >90 (>60 ml/min/1.73 sqM); Alkaline Phosphatase 85 U/L (38-126); Anion Gap 4 mmol/L; Blood Urea Nitrogen 8 mg/dL (7-17); Calcium 9.4 mg/dL (8.4-10.2); Carbon Dioxide 28 mmol/L (22-30); Chloride 104 mmol/L (98-107); Cholesterol 141 mg/dL (<200); Glucose 89 mg/dL (74-99); HDL Cholesterol 72 mg/dL (40-60); LDL Cholesterol,Calculated 58 mg/dL (0-99); Non-African American GFR(CKD) >90 (>60 ml/min/1.73 sqM); Potassium 4.2 mmol/L (3.5-5.1); Sodium 136 mmol/L (137-145); Total Bilirubin 0.4 mg/dL (0.2-1.3); Triglycerides 56 mg/dL (<150)
--- NOTE | 2020-06-18 13:34 | BD ---
EXAMINATION TYPE: Axial Bone Density DATE OF EXAM: 06/18/2020 COMPARISON: NONE CLINICAL HISTORY: Postmenopausal female. Height: 5 FT 8 1/2 IN Weight: 227 FRAX RISK QUESTIONS: Alcohol (3 or more units per day): NO Family History (Parent hip fracture): NO Glucocorticoids (More than 3mos): YES (Ex: prednisone, prednisolone, methylprednisolone, dexamethasone, and hydrocortisone). History of Fracture in Adulthood: YES Secondary Osteoporosis: 1. Type 1 Diabetes: NO 2. Hyperthyroidism: NO 3. Menopause before 45: NO 4. Malnutrition: NO 5. Chronic liver disease: NO Rheumatoid Arthritis: YES Current Tobacco Use: YES RISK FACTORS HISTORY OF: Family History of Osteoporosis: NO Active: SOMEWHAT Diet low in dairy products/other sources of calcium: NO Postmenopausal woman: ABLATION AGE 45 SYMPTOMS AGE 48 Take estrogen and/or progesterone medications: NONE Lost more than 2 inches in height since high school: NO Poor Health: FAIR MEDICATIONS: Additional Medications: ZOLOFT, COREG, LIPITOR, XANAX,ENALAPRIL, ATORVASTATIN, PROTONIX, NORVASC, FU ROSEMIDE, METHOTREXATE, PREMARIN, ASPIRIN, RINVOQ Additional History: EXAM MEASUREMENTS: Bone mineral densitometry was performed using the [id number] System. Bone mineral density as measured about the Lumbar spine is: ----- L1-L4(G/cm2): 1.273 T Score Values are as follows: ----- L2: 0.2 ----- L3: 0.7 ----- L4: 1.4 ----- L1-L4: 0.8 BASELINE Bone mineral density about the R hip (g/cm2): 1.002 Bone mineral density about the L hip (g/cm2): 0.957 T Score values are as follows: -----R Neck: -0.3 -----L Neck: -0.6 -----R Total: 0.5 -----L Total: 0.3 BASELINE IMPRESSION: Normal (Values between +1 and -1 indicate normal bone mass). Consider repeating this study in 5 year s or sooner if there is some new clinical indication. NOTE: T-SCORE=SD OF THE YOUNG ADULT MEAN.
[2020-06-18 18:57] LABS: Hemoglobin A1C 5.7 % (4.0-6.0)
== END ==
LOC: RADBDWWP 07:07
PROVIDERS: ATTEND Internal Medicine
DX: Z78.0 Asymptomatic menopausal state (principal); Z13.820 Encounter for screening for osteoporosis; E11.9 Type 2 diabetes mellitus without complications; E56.9 Vitamin deficiency, unspecified; Z13.1 Encounter for screening for diabetes mellitus; Z13.6 Encounter for screening for cardiovascular disorders; I10 Essential (primary) hypertension; M06.9 Rheumatoid arthritis, unspecified; R53.83 Other fatigue
CPT/HCPCS: 77080; 80053; 80061; 81001; 82306; 83036; 84443; 85025

== ENCOUNTER → 2020-12-03 | Outpatient (CLI) | payer MEDICARE, OTHER ==
[2020-12-03 11:18] VITALS: BP 95/61; PULSE 83; RESP 18; TEMP 98.5
--- NOTE | 2020-12-03 12:44 | P.HPOB ---
History of Present Illness H&P Date: 12/03/20 Chief Complaint: The patient is here for her routine gynecologic exam and ma mmogram. This is a 50-year-old with an LMP of 2011. The patient has multiple issues. She has noticed pustules on the breasts during the past year that seem to come one at a time. She has noticed them on both breasts. It can start like a pimple-like lesion with a white head and the Wiley can get larger and break open with pus like material. She currently has one on the left breast w hich has broken open and feels sore. She also has been experiencing generalized abdominal pain and tenderness. She states her bowel movements have been regular and daily. The pain is described as a crampy kind of sensation which she feels in the upper abdomen but also feels that in the lower abdomen as well. She has been experiencing a vaginal odor without vaginal discharge or pruritus. She continues to use Premarin vaginal cream for dryness and vulvar irritation and she states this is helpful. She states she has not been sexually active over the past 2 years but is requesting STD testing. She denies dysuria but sometimes does have bladder pressure. Review of Systems The patient's weight has been stable over the last year. She denies respiratory, cardiac, or G.I. problems. Past Medical History Past Medical History: Heart Failure, Diabetes Mellitus, Fibromyalgia, GERD/Reflux, Hyperlipidemia, Hypertension, Rheumatoid Arthritis (RA), Thyroid Disorder, Vascular Disorder Additional Past Medical History / Comment(s): diet controlled type II diabetic, HERNIATED DISCS, SCIATIC NERVE PAIN, NEUROPATHY,IBS. 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 TLH for benign reasons. History of Any Multi-Drug Resistant Organisms: None Reported Past Surgical History: Hysterectomy, Uterine Ablation Additional Past Surgical History / Comment(s): Total laparoscopic hysterectomy 2013. Colonoscopy 2019. Past Anesthesia/Blood Transfusion Reactions: No Reported Reaction Past Psychological History: Anxiety, Depression Smoking Status: Current every day smoker (About 7 per day) Past Alcohol Use History: Occasional (0-1 month) Additional Past Alcohol Use History / Comment(s): started smoking age 22 (1991) Past Drug Use History: None Reported Additional History: She is single and is not seeing anybody at this time. She states she has not been sexually active since prior to 2019. She is disabled. - Past Family History Father Family Medical History: Cancer Additional Family Medical History / Comment(s): Gastric cancer. Grandmother had breast cancer. Mother Family Medical History: Congestive Heart Failure (CHF), Hyperlipidemia, Hypertension Additional Family Medical History / Comment(s): Grandmother had an SC. Medications and Allergies Home Medications Medication Instructions Recorded Confirmed Type Enalapril [Vasotec] 20 mg PO BID 09/10/16 12/03/20 History Furosemide [Lasix] 20 mg PO DAILY 09/10/16 12/03/20 History Pantoprazole Sodium [Protonix] 40 mg PO DAILY 09/10/16 12/03/20 History amLODIPine [Norvasc] 10 mg PO DAILY 09/10/16 12/03/20 History Atorvastatin [Lipitor] 40 mg PO DAILY 02/09/18 12/03/20 History Carvedilol [Coreg] 12.5 mg PO BID 02/09/18 12/03/20 History Aspirin 81 mg PO DAILY 06/17/18 12/03/20 History Folic Acid 1 mg PO DAILY 06/17/18 12/03/20 History metHOTREXate sodium [Methotrexate] 20 mg PO WE 06/17/18 12/03/20 History Cholecalciferol [Vitamin D3 (25 5,000 unit PO DAILY 10/10/19 12/03/20 History Mcg = 1000 Iu)] ALPRAZolam [Xanax] 0.25 mg PO BID 01/01/20 12/03/20 History Dicyclomine [Bentyl] 20 mg PO BID 01/01/20 12/03/20 History Estrogens, Conjugated Cream 1 gram VAGINAL TH@0800,199901/01/20 12/03/20 History [Premarin Vaginal Cream] Pyridoxine HCl (Vitamin B6) 100 mg PO DAILY 01/01/20 12/03/20 History [Vitamin B-6] Sertraline [Zoloft] 50 mg PO DAILY 01/01/20 12/03/20 History Tofacitinib Citrate [Xeljanz Xr] 11 mg PO DAILY 12/03/20 12/03/20 History Allergies Allergy/AdvReac Type Severity Reaction Status Date / Time Tetracyclines Allergy Rash/Hives Verified 01/01/20 22:51 Exam Vital Signs Temp Pulse Resp BP Pulse Ox 12/03/20 11:14 98.5 F 83 18 95/61 96 Intake and Output 12/02/20 12/03/20 12/03/20 22:59 06:59 14:59 Other: Weight 103.419 kg Height 5 feet 8 inches, weight 228 pounds, BMI 34.7. This is a well-developed well-nourished black female who is alert and oriented times 3 in no acute distress. HEENT: Within normal limits. NECK: Supple without mass or thyromegaly. CHEST AND LUNGS: Clear to auscultation. HEART: Regular rate and rhythm. BREASTS: Are without mass or discharge. There is a slightly ulcerated area at the 2 o'clock position of the left breast with surrounding erythema. The ulcerated area measures approximately 8 mm and the surrounding erythema measures approximately 2.5 x 2.5 cm. This area is minimally tender. There are 2 scarred areas on each breast that measure approximately 1.5 x 1.5 cm which the patient states started as a wiley-type lesion that have resolved. AXILLARY EXAM: Negative for adenopathy. BACK: Negative for CVA tenderness. ABDOMEN: Soft, obese, without palpable masses. There is mild upper abdominal tenderness without rebound tenderness. There is also mild lower abdominal tenderness without rebound tenderness. Bowel sounds are 1+. PELVIC EXAM: External genitalia appears normal with minimal atrophy. Vagina has a creamy like substance which is white. The patient states she did use Premarin vaginal cream earlier today in the vagina. There is no evidence of prolapse. Bimanual examination is negative for mass, but there is mild generalized pelvic tenderness. RECTAL EXAM: Rectovaginal exam is negative for mass or tenderness and is negative for occult blood. EXTREMITIES: Nontender. IMPRESSION: 1. 50-year-old perimenopausal female status post total laparoscopic hysterectomy with multiple complaints. 2. Small area of left breast cellulitis which she started as a pimple-like lesion. She states this has been occurring on and off with in both breasts. This intermittent cellulitis may or may not be related to poor diabetes control. She understands the importance of keeping her diabetes under control since poor control can lead to greater skin infections. 3. Generalized abdominal tenderness with low abdominal and pelvic tenderness on exam today. The pelvic tenderness could possibly be ovarian related, but may also be related to non-gynecologic causes and this would include GI causes. 4. Vaginal odor. Differential diagnosis will include bacterial vaginosis, Trichomonas or other STD. Physiologic odor or urinary odor would also be incl uded in the differential diagnosis. 5. The patient is requesting STD testing. No she states she has not been sexually active during the past 2 years. PLAN: 1. Pap smears have been discontinued. 2. Self breast awareness was discussed with the patient. We have also discussed symptoms associated with inflammatory breast cancer. 3. Screening mammogram will be done today. 4. Urine will be obtained for urinalysis with culture and sensitivity and GC and chlamydia testing will also be tested from the specimen. 5. Affirm vaginitis panel will be run on a vaginal specimen. 6. Pelvic ultrasound was recommended and the order slip was given to the patient for this. If this is unremarkable, she will follow up with her primary care doctor for her abdominal pains. 7. Additional STD testing will include HIV, RPR, hepatitis B surface antigen, and hepatitis C antibody. 8. She will continue to use Premarin cream as needed, as directed. The electronic prescription will be sent to [facility] pharmacy on 9. Keflex 500 mg by mouth 3 times a day for 8 days. She will also use Neosporin to the area of cellulitis on the left breast. She was instructed to use warm to hot compresses when she notices these types of areas developing on the breasts. She will also use Neosporin twice a day on these areas. 10. She was advised to return in one year for her annual well woman exam and as needed.
[2020-12-03 18:33] LABS: Amorphous Sediment,Urine Rare /hpf; Appearance,Urine Turbid (Clear); Bacteria,Urine Rare /hpf; Bilirubin,Urine Negative (Negative); Blood,Urine Negative (Negative); Color,Urine Yellow; Glucose,Urine (UA) Negative (Negative); Ketones,Urine Negative (Negative); Leukocyte Esterase,Urine Negative (Negative); Mucus,Urine Rare /hpf; Nitrite,Urine Negative (Negative); PH, Urine 5.5 (5.0-8.0); Protein,Urine Negative (Negative); RBC,Urine 28 /hpf (0-5); Specific Gravity,Urine 1.014 (1.001-1.035); Squamous Epithelial Cell,Urine 3 /hpf (0-4); Urobilinogen,Urine <2.0 mg/dL (<2.0); WBC,Urine 2 /hpf (0-5)
--- NOTE | 2020-12-04 14:28 | P.PN ---
Progress Note - Text Progress Note Date: 12/04/20 OUTPATIENT FOLLOW-UP NOTE TEST(S)/RESULTS: Urinalysis shows some red blood cells is otherwise u nremarkable. Leukocyte esterase is negative. Blood tests include negative HIV, negative RPR, negative hepatitis B surface antigen, and negative hepatitis C antibody. METHOD OF NOTIFICATION: These results were given to the patient by phone. PATIENT COMMENTS: She denies any gross hematuria. DIAGNOSIS: Microscopic hematuria. DISCUSSION: We'll await urine culture with sensitivities. If this is negative, we'll consider repeating the urine urinalysis and if persistent red blood cells are noted, she will be referred for further evaluation. Await affirm vaginitis panel, GC and Chlamydia testing. She is also scheduled for a pelvic ultrasound. PLAN: As above.
[2020-12-04 14:31] LABS: Gardnerella Positive (Negative); Source Vagina; Trichomonas Negative (Negative)
--- NOTE | 2020-12-05 08:34 | MM ---
Reason for exam: screening (asymptomatic). Last mammogram was performed 1 year and 2 months ago. History: Patient is postmenopausal. Family history of breast cancer in maternal grandmother at age 86. Took hormonal contraceptives for 6 years beginning at age 18. Physical Findings: A clinical breast exam by your physician is recommended on an annual basis and results should be correlated with mammographic findings. MG 3D Screening Mammo W/Cad Bilateral CC and MLO view(s) were taken. Prior study comparison: October 10, 2019, bilateral MG 3d screening mammo w/cad. June 28, 2018, bilateral MG 3d screening mammo w/cad. December 28, 2017, left breast MG 3d diag mammo w/cad LT. June 01, 2017, bilateral MG 3d screening mammo w/cad. There are scattered fibroglandular densities. There is chronic nodularity in the right breast. No significant changes when compared with prior studies. ASSESSMENT: Negative, BI-RAD 1 RECOMMENDATION: Routine screening mammogram of both breasts in 1 year.
== END | disposition home or self-care (01) ==
LOC: WWCWWP 11:09
PROVIDERS: ATTEND Obstetrics & Gynecology
DX: Z12.31 Encounter for screening mammogram for malignant neoplasm of breast (principal); N61.0 Mastitis without abscess
CPT/HCPCS: 77063; 77067; 81001; 87086; 87480; 87491; 87510; 87591; 87660

== ENCOUNTER → 2020-12-03 | Outpatient (CLI) | payer MEDICARE, OTHER ==
[2020-12-03 18:41] LABS: Basophils # (A) 0.03 X 10*3/uL (0.00-0.10); Basophils % (A) 0.3 %; Eosinophils # (A) 0.21 X 10*3/uL (0.04-0.35); Eosinophils % (A) 2.2 %; HCT 40.7 % (37.2-46.3); HGB 12.1 g/dL (12.0-15.0); Lymphocytes # (A) 4.72 X 10*3/uL (0.90-5.00); Lymphocytes % (A) 49.4 %; MCH 27.9 pg (27.0-32.0); MCHC 29.7 g/dL (32.0-37.0); Mean Platelet Volume 12.1 fL (9.5-12.2); Monocytes # (A) 0.55 X 10*3/uL (0.20-1.00); Monocytes % (A) 5.8 %; Neutrophils # (A) 4.02 X 10*3/uL (1.80-7.70); Neutrophils % (A) 42.1 %; Platelet Count 269 X 10*3/uL (140-440); RBC 4.33 X 10*6/uL (4.10-5.20); RDW 15.6 % (11.5-14.5); WBC 9.55 X 10*3/uL (4.50-10.00)
[2020-12-03 20:14] LABS: Hepatitis B Surface Antigen Non-Reactive (Non-Reactive); Hepatitis C IgG Antibody Non-Reactive (Non-Reactive)
[2020-12-03 20:30] LABS: Erythrocyte Sedimentation Rate 6 mm/Hr (0-30)
[2020-12-03 22:21] LABS: HIV 2 AB Non-Reactive (Non-Reactive); HIV AB P24 Non-Reactive (Non-Reactive); HIV P24 AG Non-Reactive (Non-Reactive)
[2020-12-04 01:28] LABS: African American GFR (CKD) 116.3 (60.0-200.0); C Reactive Protein 0.6 mg/dL (0.0-0.8); Non-African American GFR(CKD) 100.3 (60.0-200.0)
== END | disposition home or self-care (01) ==
LOC: LABWHC1 10:57
PROVIDERS: ATTEND Internal Medicine Rheumatology
DX: Z11.3 Encounter for screening for infections with a predominantly sexual mode of transmission (principal); M06.9 Rheumatoid arthritis, unspecified
CPT/HCPCS: 36415; 81001; 82565; 84450; 84460; 85025; 85652; 86140; 86780; 86803; 87086; 87340; 87390; 87480; 87491; 87510; 87591; 87660

== ENCOUNTER → 2021-10-31 | Outpatient (CLI) | payer MEDICARE, OTHER ==
--- NOTE | 2021-10-31 12:28 | CT ---
EXAMINATION TYPE: CT chest wo con CT DLP: 702 mGycm, Automated exposure control for dose reduction was used. DATE OF EXAM: 10/31/2021 11:31 AM COMPARISON: CTA chest 01/01/2020. CLINICAL INDICATION:Female, 51 years old with history of R91.1 SOLITARY PULMONARY NODULE; TECHNIQUE: Multiple axial images were obtained through the chest without IV contrast. Lack of IV or o ral contrast limits evaluation of solid and hollow organ viscera. Coronal and sagittal reformats revi ewed. FINDINGS: LUNGS/ PLEURA: No pneumothorax or pleural effusion. No focal consolidation. Mild centrilobular and pa raseptal emphysematous changes. No suspicious pulmonary nodule or mass. AIRWAY: Patent and unremarkable.. HEART: Mildly prominent but stable in size. No pericardial effusion. MEDIASTINUM: Stable subcentimeter prevascular space lymph nodes identified. No pathologic lymphadenop athy. VASCULATURE: No aortic aneurysm. MUSCULOSKELETAL: No acute osseous abnormalities SOFT TISSUES/LYMPH NODES: Table bilateral nonenlarged axillary lymph nodes. LOWER NECK: No significant findings. UPPER ABDOMEN: Liver is diffusely hypoattenuating consistent with steatosis. IMPRESSION: 1. No acute thoracic process. 2. No suspicious pulmonary nodules. 3. Mild emphysematous changes. 4. Hepatic steatosis.
== END | disposition home or self-care (01) ==
LOC: RADCTMAIN 11:12
PROVIDERS: ATTEND Internal Medicine
DX: K76.0 Fatty (change of) liver, not elsewhere classified (principal); R91.1 Solitary pulmonary nodule
CPT/HCPCS: 71250

== ENCOUNTER → 2021-10-31 | Outpatient (CLI) | payer MEDICARE, OTHER ==
[2021-10-31 17:39] LABS: Basophils # (A) 0.04 X 10*3/uL (0.00-0.10); Basophils % (A) 0.5 %; Eosinophils # (A) 0.16 X 10*3/uL (0.04-0.35); Eosinophils % (A) 2.2 %; HCT 41.5 % (37.2-46.3); HGB 12.3 g/dL (12.0-15.0); Immature Grans, Automated 0.3 %; Lymphocytes % (A) 27.4 %; MCH 27.1 pg (27.0-32.0); MCHC 29.6 g/dL (32.0-37.0); MCV 91.4 fL (80.0-97.0); Mean Platelet Volume 11.3 fL (9.5-12.2); Monocytes % (A) 6.8 %; NRBC Per 100 WBC 0.3 /100 WBCS (0.0-0.0); Neutrophils # (A) 4.58 X 10*3/uL (1.80-7.70); Neutrophils % (A) 62.8 %; Platelet Count 255 X 10*3/uL (140-440); RBC 4.54 X 10*6/uL (4.10-5.20); RDW 14.6 % (11.5-14.5)
[2021-10-31 17:48] LABS: African American GFR (CKD) 121.5 (60.0-200.0); C Reactive Protein 1.7 mg/dL (0.00-0.80); Non-African American GFR(CKD) 104.8 (60.0-200.0)
[2021-10-31 19:29] LABS: Erythrocyte Sedimentation Rate 35 mm/Hr (0-30)
== END | disposition home or self-care (01) ==
LOC: LABWHC1 11:29
PROVIDERS: ATTEND Internal Medicine Rheumatology
DX: M06.9 Rheumatoid arthritis, unspecified (principal)
CPT/HCPCS: 36415; 82565; 84450; 84460; 85025; 85652; 86140

== ENCOUNTER → 2022-01-27 | Outpatient (CLI) | payer MEDICARE ==
[2022-01-27 22:35] LABS: Appearance,Urine Clear (Clear); Bilirubin,Urine Negative (Negative); Blood,Urine Negative (Negative); Color,Urine Yellow (Yellow); Ketones,Urine Negative (Negative); Nitrite,Urine Negative (Negative); Specific Gravity,Urine 1.012 (1.001-1.030); Urobilinogen,Urine 0.2 (0.2,1.0)
[2022-01-27 23:15] LABS: Basophils # (A) 0.04 X 10*3/uL (0.00-0.10); Basophils % (A) 0.5 %; Eosinophils # (A) 0.22 X 10*3/uL (0.04-0.35); Eosinophils % (A) 2.6 %; HCT 40.3 % (37.2-46.3); HGB 12.3 g/dL (12.0-15.0); Immature Grans, Automated 0.7 %; Lymphocytes # (A) 3.95 X 10*3/uL (0.90-5.00); MCH 28.7 pg (27.0-32.0); MCHC 30.5 g/dL (32.0-37.0); MCV 93.9 fL (80.0-97.0); Mean Platelet Volume 11.9 fL (9.5-12.2); Monocytes # (A) 0.55 X 10*3/uL (0.20-1.00); Monocytes % (A) 6.5 %; NRBC Per 100 WBC 2.3 /100 WBCS (0.0-0.0); Neutrophils # (A) 3.59 X 10*3/uL (1.80-7.70); Neutrophils % (A) 42.7 %; Platelet Count 267 X 10*3/uL (140-440); RBC 4.29 X 10*6/uL (4.10-5.20); RDW 15.7 % (11.5-14.5); WBC 8.41 X 10*3/uL (4.50-10.00)
[2022-01-28 00:10] LABS: Erythrocyte Sedimentation Rate 32 mm/Hr (0-30)
[2022-01-28 01:38] LABS: HIV 2 AB Non-Reactive (Non-Reactive); HIV AB P24 Non-Reactive (Non-Reactive); HIV P24 AG Non-Reactive (Non-Reactive)
[2022-01-28 02:01] LABS: ALT 31 U/L (8-44); AST 28 U/L (13-35); African American GFR (CKD) 116.1 (60.0-200.0); Albumin 4.2 g/dL (3.8-4.9); Albumin/Globulin Ratio 1.49 (1.60-3.17); Alkaline Phosphatase 112 U/L (41-126); BUN/Creat Ratio 9.88 Ratio (12.00-20.00); Blood Urea Nitrogen 6.7 mg/dL (9.0-27.0); Calcium 9.7 mg/dL (8.7-10.3); Carbon Dioxide 23.7 mmol/L (20.0-27.5); Chloride 100 mmol/L (96-109); Chol/HDL Ratio 3.23 Ratio; Globulin 2.8 g/dL (1.6-3.3); Glucose 119 mg/dL (70-110); LDL Cholesterol,Calculated 97.3 mg/dL (0.0-131.0); Non-African American GFR(CKD) 100.2 (60.0-200.0); Potassium 4.4 mmol/L (3.5-5.5); Sodium 136 mmol/L (135-145)
== END | disposition home or self-care (01) ==
LOC: LABWHC1 14:07
PROVIDERS: ATTEND Internal Medicine
DX: Z11.4 Encounter for screening for human immunodeficiency virus [HIV] (principal); I10 Essential (primary) hypertension; E78.00 Pure hypercholesterolemia, unspecified; E55.9 Vitamin D deficiency, unspecified; M06.9 Rheumatoid arthritis, unspecified; R30.9 Painful micturition, unspecified
CPT/HCPCS: 36415; 80053; 80061; 81003; 82306; 83036; 84443; 85025; 85652; 87086; 87390

== ENCOUNTER → 2022-01-27 | Outpatient (CLI) | payer MEDICARE ==
[2022-01-27 15:14] VITALS: BP 114/77; PULSE 78; RESP 18; TEMP 98
--- NOTE | 2022-01-27 16:05 | P.HPOB ---
History of Present Illness H&P Date: 01/27/22 Chief Complaint: The patient is here for her routine gynecologic exam and ma mmogram. This is a 52-year-old with an LMP of 2011. The patient is status post TL for benign reasons. The patient's states she believes she has gone into full- blown menopause and is now experiencing severe hot flashes during the day and night. At night she states it is very difficult to sleep because of the hot flashes. She has gone for 3 days without being able to sleep at night and ends up sleeping during the day because she is so tired. She also feels like she has a short temper because of the hot flashes and not sleeping well. She has been on Zoloft for other indications and this does not seem to be helping with hot flashes. Review of Systems The patient has gained 5 pounds over the last year. She denies respiratory or cardiac problems. GI: She has fairly frequent bowel movements and seems to have a bowel movement after each meal. Past Medical History Past Medical History: Heart Failure, Diabetes Mellitus, Fibromyalgia, GERD/Reflux, Hyperlipidemia, Hypertension, Rheumatoid Arthritis (RA), Thyroid Disorder, Vascular Disorder Additional Past Medical History / Comment(s): diet controlled type II diabetic, HERNIATED DISCS, SCIATIC NERVE PAIN, NEUROPATHY,IBS. 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 TLH for benign reasons. History of Any Multi-Drug Resistant Organisms: None Reported Past Surgical History: Hysterectomy, Uterine Ablation Additional Past Surgical History / Comment(s): Total laparoscopic hysterectomy 2012. Colonoscopy 2019. Past Anesthesia/Blood Transfusion Reactions: No Reported Reaction Past Psychological History: Anxiety, Depression Smoking Status: Current every day smoker (5-7 cigarettes per day) Past Alcohol Use History: Occasional (0-2 per week) Additional Past Alcohol Use History / Comment(s): started smoking age 22 (1991) Past Drug Use History: None Reported Additional History: She is single and is not seeing anybody at this time. She has not been sexually active since 2016. She is disabled. - Past Family History Father Family Medical History: Cancer Additional Family Medical History / Comment(s): Gastric cancer. Grandmother had breast cancer. Mother Family Medical History: Congestive Heart Failure (CHF), Hyperlipidemia, Hypertension Additional Family Medical History / Comment(s): Grandmother had an AR. Medications and Allergies Home Medications Medication Instructions Recorded Confirmed Type Enalapril [Vasotec] 20 mg PO BID 09/10/16 01/27/22 History Furosemide [Lasix] 20 mg PO DAILY 09/10/16 01/27/22 History Pantoprazole Sodium [Protonix] 40 mg PO DAILY 09/10/16 01/27/22 History amLODIPine [Norvasc] 10 mg PO DAILY 09/10/16 01/27/22 History Atorvastatin [Lipitor] 40 mg PO DAILY 02/09/18 01/27/22 History carvediloL [Coreg] 12.5 mg PO BID 02/09/18 01/27/22 History Aspirin 81 mg PO DAILY 06/17/18 01/27/22 History Folic Acid 1 mg PO DAILY 06/17/18 01/27/22 History metHOTREXate sodium [Methotrexate] 20 mg PO WE 06/17/18 01/27/22 History Cholecalciferol [Vitamin D3 (25 5,000 unit PO DAILY 10/10/19 01/27/22 History Mcg = 1000 Iu)] ALPRAZolam [Xanax] 0.25 mg PO BID 01/01/20 01/27/22 History Dicyclomine [Bentyl] 20 mg PO BID 01/01/20 01/27/22 History Pyridoxine HCl (Vitamin B6) 100 mg PO DAILY 01/01/20 01/27/22 History [Vitamin B-6] Sertraline [Zoloft] 50 mg PO DAILY 01/01/20 01/27/22 History Estrogens, Conjugated Cream 1 gram VAGINAL DIRECTED #1 tube 12/03/20 01/27/22 Rx [Premarin Vaginal Cream] Tofacitinib Citrate [Xeljanz Xr] 11 mg PO DAILY 12/03/20 01/27/22 History metroNIDAZOLE [Flagyl] 500 mg PO BID 7 Days #14 tab 12/05/20 01/27/22 Rx Allergies Allergy/AdvReac Type Severity Reaction Status Date / Time Tetracyclines Allergy Rash/Hives Verified 01/27/22 14:41 Exam Vital Signs Temp Pulse Resp BP Pulse Ox 01/27/22 15:11 98.0 F 78 18 114/77 96 Intake and Output 01/27/22 01/27/22 01/27/22 06:59 14:59 22:59 Other: Weight 105.687 kg Height 5 feet 9 inches, weight 233 pounds, BMI 34.4. This is a well-developed well-nourished black female who is alert and oriented times 3 in no acute distress. HEENT: Within normal limits. NECK: Supple without mass or thyromegaly. CHEST AND LUNGS: Clear to auscultation. HEART: Regular rate and rhythm. BREASTS: Are without mass or discharge. AXILLARY EXAM: Negative for adenopathy. BACK: Negative for CVA tenderness. ABDOMEN: Soft, nontender, without palpable masses. PELVIC EXAM: External genitalia appears normal with minimal atrophy. Vagina appears normal with minimal atrophy. There is no evidence of prolapse. Bimanual examination is negative for mass or tenderness. RECTAL EXAM: Rectovaginal exam is negative for mass or tenderness and is negative for occult blood. EXTREMITIES: Nontender. IMPRESSION: 1. 52-year-old menopausal female status post TLH for benign reasons, with normal gynecologic exam. 2. Moderate to severe vasomotor symptoms causing problems with sleep and function during the day. SSRI use has not been helpful for the vasomotor symptoms. PLAN: 1. Pap smears have been discontinued. 2. Self breast awareness was discussed with the patient. We have also discussed symptoms associated with inflammatory breast cancer. 3. Screening mammogram was done today. 4. We have had a long discussion regarding treatment for menopausal symptoms. We've discussed various options including nonhormonal medications such as clonidine and SSRI medications. We have also discussed other techniques to help with hot flashes including having icewater available as well as dressing in layers. The patient denies history of breast cancer, uterine cancer or thrombosis requiring anticoagulation. We have discussed pros and cons using ERT. We have discussed studies that have shown increased risk for stroke and blood clots with ERT. She understands there are risks involved with taking ERT. She would like to begin ERT because of the severity of her symptoms. She will be started on estradiol patches 0.05 mg changed twice weekly. She will rotate these patches on the low abdomen and hip areas. The electronic prescription will be sent to [facility] pharmacy on . She will return in 1-2 months for a recheck. She will also return in one year and as needed.
--- NOTE | 2022-01-28 18:46 | MM ---
Reason for Exam: Screening (asymptomatic). Last mammogram was performed 1 year(s) and 2 month(s) ago. Patient History: Menarche at age 15. First Full-Term at age 29. Late child-bearing (after 29). Hysterectomy at age 40. Postmenopausal. Hormonal Contraceptives for 6 years from age 18 until age 24. Maternal grandmother had breast cancer, age 86. Risk Values: Renee 5 year model risk: 1.4%. NCI Lifetime model risk: 10.6%. Prior Study Comparison: 06/28/2018 Bilateral Screening Mammogram, [facility]. 10/10/2019 Bilateral Screening Mammogram, [facility]. 12/03/2020 Bilateral Screening Mammogram, [facility]. Tissue Density: There are scattered fibroglandular densities. Findings: Analyzed By CAD. Chronic nodularity on the right. There is no suspicious group of microcalcifications or new suspicious mass in either breast. Overall Assessment: Benign, BI-RAD 2 Management: Screening Mammogram of both breasts in 1 year. 1. Patient should continue monthly self breast exams. 2. A clinical breast exam by your physician is recommended on an annual basis. 3. This exam should not preclude additional follow-up of suspicious palpable abnormalities. Electronically signed and approved by: Marielle Portillo M.D. Radiologist
--- NOTE | 2022-01-28 18:46 | MM ---
Reason for Exam: Screening (asymptomatic). Last mammogram was performed 1 year(s) and 2 month(s) ago. Patient History: Menarche at age 15. First Full-Term at age 29. Late child-bearing (after 29). Hysterectomy at age 40. Postmenopausal. Hormonal Contraceptives for 6 years from age 18 until age 24. Maternal grandmother had breast cancer, age 86. Risk Values: Renee 5 year model risk: 1.4%. NCI Lifetime model risk: 10.6%. Prior Study Comparison: 06/28/2018 Bilateral Screening Mammogram, [facility]. 10/10/2019 Bilateral Screening Mammogram, [facility]. 12/03/2020 Bilateral Screening Mammogram, [facility]. Tissue Density: There are scattered fibroglandular densities. Findings: Analyzed By CAD. Chronic nodularity on the right. There is no suspicious group of microcalcifications or new suspicious mass in either breast. Overall Assessment: Benign, BI-RAD 2 Management: Screening Mammogram of both breasts in 1 year. 1. Patient should continue monthly self breast exams. 2. A clinical breast exam by your physician is recommended on an annual basis. 3. This exam should not preclude additional follow-up of suspicious palpable abnormalities. Electronically signed and approved by: Marielle Portillo M.D. Radiologist
== END | disposition home or self-care (01) ==
LOC: RADMAMWWP 14:00
PROVIDERS: ATTEND Obstetrics & Gynecology
DX: Z12.31 Encounter for screening mammogram for malignant neoplasm of breast (principal)
CPT/HCPCS: 77063; 77067

== ENCOUNTER → 2022-05-04 | Outpatient (CLI) | payer MEDICARE ==
[2022-05-05 10:13] LABS: Basophils # (A) 0.04 X 10*3/uL (0.00-0.10); Basophils % (A) 0.6 %; Eosinophils # (A) 0.14 X 10*3/uL (0.04-0.35); HCT 42.8 % (37.2-46.3); HGB 12.5 g/dL (12.0-15.0); Immature Grans, Automated 0.3 %; Lymphocytes # (A) 2.21 X 10*3/uL (0.90-5.00); Lymphocytes % (A) 31.5 %; MCH 28.2 pg (27.0-32.0); MCHC 29.2 g/dL (32.0-37.0); MCV 96.6 fL (80.0-97.0); Monocytes # (A) 0.42 X 10*3/uL (0.20-1.00); NRBC Per 100 WBC 0.3 /100 WBCS (0.0-0.0); Neutrophils # (A) 4.19 X 10*3/uL (1.80-7.70); Neutrophils % (A) 59.6 %; Platelet Count 208 X 10*3/uL (140-440); RBC 4.43 X 10*6/uL (4.10-5.20); RDW 15.1 % (11.5-14.5); WBC 7.02 X 10*3/uL (4.50-10.00)
[2022-05-05 10:36] LABS: African American GFR (CKD) 120.6 (60.0-200.0); C Reactive Protein 1.4 mg/dL (0.00-0.80); Non-African American GFR(CKD) 104.1 (60.0-200.0)
[2022-05-05 12:13] LABS: Erythrocyte Sedimentation Rate 25 mm/Hr (0-30)
== END | disposition home or self-care (01) ==
LOC: LABWHC1 15:30
PROVIDERS: ATTEND Internal Medicine Rheumatology
DX: M06.9 Rheumatoid arthritis, unspecified (principal)
CPT/HCPCS: 36415; 82565; 84450; 84460; 85025; 85652; 86140

== ENCOUNTER → 2022-07-21 | Outpatient (CLI) | payer MEDICARE ==
[2022-07-21 15:59] VITALS: BP 125/83; PULSE 77; RESP 17; TEMP 99
--- NOTE | 2022-07-21 17:04 | P.PN ---
Progress Note - Text Progress Note Date: 07/21/22 Chief Complaint: Rash under right breast. HPI: This is a 52-year-old with an LMP of 2011. She is status post [facility] for benign reasons. She was started on ERT in the form of estradiol 1 mg by mouth daily when she was seen in January 2022. She states this has not helped at all with her hot flashes. The hot flashes are mostly at night. She also has had a painful rash under the right breast. She states when the brow rubs against it can be painful. She also notices a slight odor. PE: Blood pressure: 125/83, Height: 5 feet 9 inches, Weight: 226 pounds, Temperature: 99.0, pulse oximeter 97%. BMI 33.4. This is a well developed, well nourished, heavyset black female who is alert and orientedx3, in no acute distress. Beneath the right breast there is an area of erythema extending from the crease to the skin where the right breast overlaps the skin under the breasts. This is in a half-griffith shape consistent with the shape of her breast. This type of erythema is not noted under the left breast. Impression: 1. Erythema intertrigo beneath the right breast. 2. Hot flashes mostly at night not improved with ERT. Plan: 1. The patient was instructed to keep the area beneath the breasts clean and dry. She will also use nystatin powder twice a day for 2 weeks. The electronic prescription will be sent to [facility] pharmacy. 2. Since ERT is not helping with her vasomotor-type symptoms, she was instructed to discontinue the ERT. With her health conditions I do not feel that increasing the ERT dose is warranted and is unwise. She will discontinue the ERT and we will proceed with other more conservative measures. She will try to have a glass of icewater with her at all times and she was instructed to drink a fair amount of icewater when she feels hot flashes coming on. 3. I have also recommended that she have thyroid testing done on a regular basis to make sure that this is not the cause for her feeling hot. She did have normal thyroid testing including TSH and T4 on 01/27/2022. CBC was drawn 05/04/2022. She has already tried Zoloft, an SSRI type medication, which did not help her hot flashes. 4. She will return in 6 months for her annual well woman examination. Time spent with the patient: 25 minutes
== END ==
LOC: WWCWWP 15:36
PROVIDERS: ATTEND Obstetrics & Gynecology
DX: Z01.419 Encounter for gynecological examination (general) (routine) without abnormal findings (principal); L30.4 Erythema intertrigo; N95.1 Menopausal and female climacteric states; Z79.890 Hormone replacement therapy; Z88.8 Allergy status to other drugs, medicaments and biological substances; F17.200 Nicotine dependence, unspecified, uncomplicated

== ENCOUNTER → 2022-09-04 | Outpatient (CLI) | payer MEDICARE ==
[2022-09-04 10:50] LABS: Basophils # (A) 0.03 X 10*3/uL (0.00-0.10); Basophils % (A) 0.4 %; Eosinophils # (A) 0.26 X 10*3/uL (0.04-0.35); Eosinophils % (A) 3.5 %; HCT 42.7 % (37.2-46.3); HGB 12.7 g/dL (12.0-15.0); Immature Grans, Automated 0.4 %; Lymphocytes # (A) 4.47 X 10*3/uL (0.90-5.00); Lymphocytes % (A) 60.2 %; MCH 28.4 pg (27.0-32.0); MCHC 29.7 g/dL (32.0-37.0); MCV 95.5 fL (80.0-97.0); Mean Platelet Volume 11.5 fL (9.5-12.2); Monocytes # (A) 0.38 X 10*3/uL (0.20-1.00); Monocytes % (A) 5.1 %; NRBC Per 100 WBC 0.3 /100 WBCS (0.0-0.0); Neutrophils # (A) 2.25 X 10*3/uL (1.80-7.70); Neutrophils % (A) 30.4 %; Platelet Count 211 X 10*3/uL (140-440); RBC 4.47 X 10*6/uL (4.10-5.20); RDW 13.9 % (11.5-14.5); WBC 7.42 X 10*3/uL (4.50-10.00)
[2022-09-04 11:22] LABS: ALT 34 U/L (8-44); AST 29 U/L (13-35); African American GFR (CKD) 120.6 (60.0-200.0); Albumin 3.7 g/dL (3.8-4.9); Albumin/Globulin Ratio 1.28 (1.60-3.17); Alkaline Phosphatase 108 U/L (41-126); BUN/Creat Ratio 14.67 Ratio (12.00-20.00); Blood Urea Nitrogen 8.8 mg/dL (9.0-27.0); Calcium 9.4 mg/dL (8.7-10.3); Carbon Dioxide 22.2 mmol/L (20.0-27.5); Chloride 105 mmol/L (96-109); Chol/HDL Ratio 4.14 Ratio; Globulin 2.9 g/dL (1.6-3.3); Glucose 169 mg/dL (70-110); LDL Cholesterol,Calculated 92.7 mg/dL (0.0-131.0); Non-African American GFR(CKD) 104.1 (60.0-200.0); Potassium 4.2 mmol/L (3.5-5.5); Sodium 139 mmol/L (135-145); Total Protein 6.6 g/dL (6.2-8.2)
[2022-09-04 11:49] LABS: Erythrocyte Sedimentation Rate 15 mm/Hr (0-30)
[2022-09-04 16:59] LABS: Appearance,Urine Clear (Clear); Bilirubin,Urine Negative (Negative); Blood,Urine Negative (Negative); Color,Urine Yellow (Yellow); Ketones,Urine Negative (Negative); Nitrite,Urine Negative (Negative); Specific Gravity,Urine 1.011 (1.001-1.030)
== END | disposition home or self-care (01) ==
LOC: LABWHC1 07:43
PROVIDERS: ATTEND Internal Medicine Rheumatology
DX: I10 Essential (primary) hypertension (principal); M06.9 Rheumatoid arthritis, unspecified; E78.00 Pure hypercholesterolemia, unspecified; E55.9 Vitamin D deficiency, unspecified
CPT/HCPCS: 36415; 80053; 80061; 81003; 82306; 83036; 84443; 85025; 85652; 86140

== ENCOUNTER → 2023-05-11 | Outpatient (CLI) | payer MEDICARE ==
[2023-05-11 16:28] VITALS: BP 145/81; PULSE 90; RESP 17; TEMP 98.7
--- NOTE | 2023-05-11 17:13 | P.HPOB ---
History of Present Illness H&P Date: 05/11/23 Chief Complaint: The patient is here for her routine gynecologic exam This is a 53-year-old with an LMP of 2011. She is status post [facility] for benign reasons. She has been dealing with hot flashes for more than one year. She did try ERT in the form of estradiol 1 mg daily which she states did not help much and this was discontinued in 2022. She has also tried many other things for hot flashes including SSRI medications as well as [id number] supplements. These were not very helpful. She is now on Effexor for depression. She states her hot flashes are more severe than ever and this is especially problem during the night when she frequently wakes up hot and sweaty. She has not been sexually active for nearly 4 years. She is otherwise without gynecologic complaints. Review of Systems She has lost about 15 pounds over the past 1-1/2 years. She denies respiratory or cardiac problems. GI: IBS symptoms. Past Medical History Past Medical History: Heart Failure, Diabetes Mellitus, Fibromyalgia, GERD/Reflux, Hyperlipidemia, Hypertension, Rheumatoid Arthritis (RA), Thyroid Disorder, Vascular Disorder Additional Past Medical History / Comment(s): diet controlled type II diabetic, HERNIATED DISCS, SCIATIC NERVE PAIN, NEUROPATHY,IBS. Past [employer] history: trichomonas many years ago. [facility] for benign reasons. History of Any Multi-Drug Resistant Organisms: None Reported Past Surgical History: Hysterectomy, Uterine Ablation Additional Past Surgical History / Comment(s): Total laparoscopic hysterectomy 2012. Colonoscopy 2018. Past Anesthesia/Blood Transfusion Reactions: No Reported Reaction Past Psychological History: Anxiety, Depression Smoking Status: Current every day smoker (About 6 cigarettes per day.) Past Alcohol Use History: Occasional (2 drinks per week.) Additional Past Alcohol Use History / Comment(s): started smoking age 22 (1991) Past Drug Use History: None Reported Additional History: She is single and is not seeing anybody at this time. She denies any sexual activity since 2019. She is disabled. - Past Family History Father Family Medical History: Cancer Additional Family Medical History / Comment(s): Gastric cancer. Grandmother had breast cancer. Mother Family Medical History: Congestive Heart Failure (CHF), Hyperlipidemia, Hypertension Additional Family Medical History / Comment(s): Grandmother had an [place]. Sister(s) Family Medical History: Cancer Additional Family Medical History / Comment(s): Her sister of some type of unknown cancer. She states she was not very close the sister and does not know any more details. Medications and Allergies Home Medications Medication Instructions Recorded Confirmed Type Enalapril [Vasotec] 20 mg PO BID 09/10/16 05/11/23 History Furosemide [Lasix] 20 mg PO DAILY 09/10/16 05/11/23 History Pantoprazole Sodium [Protonix] 40 mg PO DAILY 09/10/16 05/11/23 History amLODIPine [Norvasc] 10 mg PO DAILY 09/10/16 05/11/23 History Atorvastatin [Lipitor] 40 mg PO DAILY 02/09/18 05/11/23 History carvediloL [Coreg] 12.5 mg PO BID 02/09/18 05/11/23 History Folic Acid 1 mg PO DAILY 06/17/18 05/11/23 History metHOTREXate sodium 20 mg PO WE 06/17/18 05/11/23 History Cholecalciferol [Vitamin D3 (25 5,000 unit PO DAILY 10/10/19 05/11/23 History Mcg = 1000 Iu)] ALPRAZolam [Xanax] 0.25 mg PO BID 01/01/20 05/11/23 History Dicyclomine [Bentyl] 20 mg PO BID 01/01/20 05/11/23 History Tofacitinib Citrate [Xeljanz Xr] 11 mg PO DAILY 12/03/20 05/11/23 History Triamcinolone 0.1% Cream [Kenalog 1 applicatio TOPICAL BID PRN #30 gm 05/19/22 05/11/23 Rx 0.1% Cream] Nystatin 100,000 Unit/gm Powd 1 applic TOPICAL BID 14 Days #30 gm 07/21/22 05/11/23 Rx [Mycostatin Powder] Venlafaxine HCl [Effexor] 25 mg PO DAILY 07/21/22 05/11/23 History Allergies Allergy/AdvReac Type Severity Reaction Status Date / Time Tetracyclines Allergy Rash/Hives Verified 05/11/23 16:09 Exam Vital Signs Temp Pulse Resp BP Pulse Ox 05/11/23 16:10 98.7 F 90 17 145/81 96 Intake and Output 05/11/23 05/11/23 05/11/23 06:59 14:59 22:59 Other: Weight 98.883 kg Height 5 feet 9 inches, weight 218 pounds, BMI 32.2. This is a well-developed well-nourished black female who is alert and oriented times 3 in no acute distress. HEENT: Within normal limits. NECK: Supple without mass or thyromegaly. CHEST AND LUNGS: Clear to auscultation. HEART: Regular rate and rhythm. BREASTS: Are without mass or discharge. AXILLARY EXAM: Negative for adenopathy. BACK: Negative for CVA tenderness. ABDOMEN: Soft, nontender, without palpable masses. PELVIC EXAM: External genitalia appears normal with mild atrophy. Vagina appears normal with mild atrophy. There is no evidence of prolapse. Bimanual examination is negative for mass or tenderness. RECTAL EXAM: Rectovaginal exam is negative for mass or tenderness and is negative for occult blood. EXTREMITIES: Nontender. IMPRESSION: 1. 53-year-old menopausal female status post [facility] for benign reasons, with normal gynecologic exam. 2. Worsening vasomotor symptoms probably related to the menopausal change. She did not have significant improvement with estradiol 1 mg daily, SSRI medications, [id number] supplements, and Effexor. PLAN: 1. Pap smears have been discontinued. 2. Self breast awareness was discussed with the patient. We have also discussed symptoms associated with inflammatory breast cancer. 3. Mammogram is scheduled for 05/12/2023. The order slip was given to the patient for this. 4. We have had a long discussion regarding her vasomotor menopausal symptoms. We have also had a long discussion regarding ERT. We discussed possible risks including increased risk for blood clots and stroke. She would like to have a trial on ERT. This time she will be prescribed estradiol 1.5 mg daily. I have also recommended that she try to quit smoking since they can increase the risk for blood clots. She has been using Premarin vaginal cream for vulvar irritation. She will discontinue this as the oral ERT should provide some estrogen to the genital region as well. The electronic prescription will be sent to [facility]. 5. Osteoporosis prevention was discussed. I have stressed the importance of adequate calcium, vitamin D and regular exercise. Recommended amounts of calcium and vitamin D were also discussed. 6. I recommended that she return in 2 months for a recheck on the ERT. She should also return sooner if she has any questions or problems. 7. She was advised to return in one year for her annual well woman exam.
== END ==
LOC: WWCWWP 15:59
PROVIDERS: ATTEND Obstetrics & Gynecology
DX: E11.9 Type 2 diabetes mellitus without complications (principal); K21.9 Gastro-esophageal reflux disease without esophagitis; E78.5 Hyperlipidemia, unspecified; F17.210 Nicotine dependence, cigarettes, uncomplicated; F32.A Depression, unspecified; I50.9 Heart failure, unspecified; K58.9 Irritable bowel syndrome, unspecified; M06.9 Rheumatoid arthritis, unspecified; J30.0 Vasomotor rhinitis; M79.7 Fibromyalgia; F41.9 Anxiety disorder, unspecified; Z78.0 Asymptomatic menopausal state; Z80.3 Family history of malignant neoplasm of breast; Z88.1 Allergy status to other antibiotic agents

== ENCOUNTER → 2023-05-12 | Outpatient (CLI) | payer MEDICARE ==
--- NOTE | 2023-05-13 20:59 | MM ---
Reason for Exam: Screening (asymptomatic). Last mammogram was performed 1 year(s) and 3 month(s) ago. Patient History: Menarche at age 15. First Full-Term at age 29. Late child-bearing (after 29). Hysterectomy at age 40. Postmenopausal. Hormonal Contraceptives for 6 years from age 18 until age 24. Maternal grandmother had breast cancer, age 86. Risk Values: Renee 5 year model risk: 1.4%. NCI Lifetime model risk: 10.4%. Prior Study Comparison: 10/10/2019 Bilateral Screening Mammogram, [facility]. 12/03/2020 Bilateral Screening Mammogram, [facility]. 01/27/2022 Bilateral MG 3D screening mammo w/cad, [facility]. Tissue Density: There are scattered fibroglandular densities. Findings: Analyzed By CAD. Chronic bilateral nodularity. There is no suspicious group of microcalcifications or new suspicious mass in either breast. Overall Assessment: Benign, BI-RAD 2 Management: Screening Mammogram of both breasts in 1 year. . Patient should continue monthly self-breast exams. A clinical breast exam by your physician is recommended on an annual basis. This exam should not preclude additional follow-up of suspicious palpable abnormalities. Note on Renee scores and lifetime risk: 1. A Renee score greater than 3% is considered moderate risk. If this is the case, consider specialist referral to assess eligibility for a risk reducing agent. 2. If overall lifetime risk for the development of breast cancer is 20% or higher, the patient may qualify for future screening with alternating mammogram and breast MRI. Electronically signed and approved by: Marielle Portillo M.D. Radiologist
== END | disposition home or self-care (01) ==
LOC: RADMAMWWP 12:14
PROVIDERS: ATTEND Obstetrics & Gynecology
DX: Z12.31 Encounter for screening mammogram for malignant neoplasm of breast (principal); Z80.3 Family history of malignant neoplasm of breast; Z78.0 Asymptomatic menopausal state
CPT/HCPCS: 77063; 77067

== ENCOUNTER → 2023-09-20 | Outpatient (CLI) | payer MEDICARE ==
[2023-09-20 19:13] LABS: Basophils # (A) 0.03 X 10*3/uL (0.00-0.10); Basophils % (A) 0.5 %; Eosinophils % (A) 1.7 %; HCT 41.5 % (37.2-46.3); HGB 12.7 g/dL (12.0-15.0); Lymphocytes # (A) 2.94 X 10*3/uL (0.90-5.00); Lymphocytes % (A) 48.5 %; MCH 29.6 pg (27.0-32.0); MCHC 30.6 g/dL (32.0-37.0); MCV 96.7 FL (80.0-97.0); Mean Platelet Volume 11.9 FL (9.5-12.2); Monocytes # (A) 0.32 X 10*3/uL (0.20-1.00); Monocytes % (A) 5.3 %; NRBC Per 100 WBC 0.04 X 10*3/uL (0.00-0.01); Neutrophils # (A) 2.66 X 10*3/uL (1.80-7.70); Neutrophils % (A) 43.8 %; Platelet Count 204 X 10*3/uL (140-440); RBC 4.29 X 10*6/uL (4.10-5.20); RDW 14.7 % (11.5-14.5); WBC 6.06 X 10*3/uL (4.50-10.00)
[2023-09-20 19:44] LABS: Appearance,Urine Clear (Clear); Bilirubin,Urine Negative (Negative); Blood,Urine Negative (Negative); Color,Urine Yellow (Yellow); Ketones,Urine Negative (Negative); Nitrite,Urine Negative (Negative); Urobilinogen,Urine 0.2 E.U./DL
[2023-09-20 19:47] LABS: Erythrocyte Sedimentation Rate 6 mm/Hr (0-30)
[2023-09-20 19:51] LABS: ALT 40 U/L (8-44); AST 39 U/L (13-35); Albumin 4.1 g/dL (3.8-4.9); Albumin/Globulin Ratio 1.58 Ratio (1.60-3.17); Alkaline Phosphatase 103 U/L (41-126); BUN/Creat Ratio 15.33 Ratio (12.00-20.00); Blood Urea Nitrogen 9.2 mg/dL (9.0-27.0); Calcium 9.1 mg/dL (8.7-10.3); Carbon Dioxide 22.6 mmol/L (21.6-31.8); Chloride 105 mmol/L (96-109); Chol/HDL Ratio 3.01 Ratio; Globulin 2.6 g/dL (1.6-3.3); Glucose 133 mg/dL (70-110); LDL Cholesterol,Calculated 72.1 mg/dL (0.0-131.0); Potassium 4.2 mmol/L (3.5-5.5); Sodium 140 mmol/L (135-145); Total Bilirubin 0.4 mg/dL (0.3-1.2); Total Protein 6.7 g/dL (6.2-8.2)
== END | disposition home or self-care (01) ==
LOC: LABWHC1 13:09
PROVIDERS: ATTEND Internal Medicine
DX: Z00.00 Encounter for general adult medical examination without abnormal findings (principal); M06.9 Rheumatoid arthritis, unspecified
CPT/HCPCS: 36415; 80053; 80061; 81003; 83036; 84443; 85025; 85652; 86140

== ENCOUNTER → 2024-01-21 | Outpatient (CLI) | payer MEDICARE ==
[2024-01-21 18:31] LABS: ALT 27 U/L (8-44); AST 30 U/L (13-35); Chol/HDL Ratio 3.02 Ratio; LDL Cholesterol,Calculated 54.3 mg/dL (0.0-131.0)
== END | disposition home or self-care (01) ==
LOC: LABWHC1 13:02
PROVIDERS: ATTEND Internal Medicine Cardiovascular Disease
DX: E78.2 Mixed hyperlipidemia (principal)
CPT/HCPCS: 36415; 80061; 84450; 84460

== ENCOUNTER → 2024-02-08 | Outpatient (CLI) | payer MEDICARE ==
[2024-02-08 16:26] VITALS: BP 180/99; PULSE 83; RESP 16; TEMP 98.6
--- NOTE | 2024-02-08 17:37 | P.HPOB ---
History of Present Illness H&P Date: 02/08/24 Chief Complaint: Abdominal cramps and pressure for 1 to 2 months. This is a 54-year-old G1, P1 with an LMP of 2011. She is status post [facility] for benign reasons. She was seen for her annual examination on 05/11/2023. She has multiple complaints today. Her chief complaint is that she has been having abdominal cramps and pressure for close to 2 months. During that time she developed diarrhea for 1 month. She did not have relief when she had diarrhea, but in fact the pain seem to be worse with movement of her bowels. She had some type of stool sample taken and tested by her GI doctor, Dr. Zazueta. The cramping discomfort varies in intensity and can be up to a 10 out of 10 when it gets bad. She states the diarrhea is not as bad as a few weeks ago, but she still has diarrhea. She has not been eating as much because it seems to go right through her. She also denies nausea and vomiting. She is also complaining of a rash under her breasts. She previously used nystatin powder for this kind of rash in the past, but she states the powder becomes very messy. She has been using Neosporin with slight relief of the itching and irritation. She states she did not take the oral estrogen replacement therapy. She had stopped the Premarin vaginal cream when she was going to take oral ERT. Because she is not taking oral ERT she would like to restart the Premarin vaginal cream which she used for genital vulvar irritation. She denies any vaginal discharge. She is also experiencing urinary symptoms and is wondering if she has a UTI. She has been experiencing urinary urgency and sometimes urinates very small amounts. She denies dysuria but does urinate frequently. Review of Systems She has lost about 12 pounds since April of this year. She denies respiratory or cardiac problems. GI: She has been having some heartburn. She has also been having diarrhea and decreased appetite without vomiting. See the HPI. : Urinary symptoms as described in the HPI. Past Medical History Past Medical History: Heart Failure, Diabetes Mellitus, Fibromyalgia, GERD/Reflux, Hyperlipidemia, Hypertension, Rheumatoid Arthritis (RA), Thyroid Disorder, Vascular Disorder Additional Past Medical History / Comment(s): diet controlled type II diabetic, HERNIATED DISCS, SCIATIC NERVE PAIN, NEUROPATHY,IBS. Past [employer] history: trichomonas many years ago. [facility]H for benign reasons. History of Any Multi-Drug Resistant Organisms: None Reported Past Surgical History: Hysterectomy, Uterine Ablation Additional Past Surgical History / Comment(s): Total laparoscopic hysterectomy 2013. Colonoscopy 2019. Past Anesthesia/Blood Transfusion Reactions: No Reported Reaction Past Psychological History: Anxiety, Depression Smoking Status: Current every day smoker Past Alcohol Use History: Occasional Additional Past Alcohol Use History / Comment(s): started smoking age 22 (1991) Past Drug Use History: None Reported - Past Family History Father Family Medical History: Cancer Additional Family Medical History / Comment(s): Gastric cancer. Grandmother had breast cancer. Mother Family Medical History: Congestive Heart Failure (CHF), Hyperlipidemia, Hypertension Additional Family Medical History / Comment(s): Grandmother had an [place]. Sister(s) Family Medical History: Cancer Additional Family Medical History / Comment(s): Her sister of some type of unknown cancer. She states she was not very close the sister and does not know any more details. Medications and Allergies Home Medications Medication Instructions Recorded Confirmed Type Enalapril [Vasotec] 20 mg PO BID 09/10/16 02/08/24 History Furosemide [Lasix] 20 mg PO DAILY 09/10/16 02/08/24 History Pantoprazole Sodium [Protonix] 40 mg PO DAILY 09/10/16 02/08/24 History amLODIPine [Norvasc] 10 mg PO DAILY 09/10/16 02/08/24 History Atorvastatin [Lipitor] 40 mg PO DAILY 02/09/18 02/08/24 History carvediloL [Coreg] 12.5 mg PO BID 02/09/18 02/08/24 History Folic Acid 1 mg PO DAILY 06/17/18 02/08/24 History metHOTREXate sodium [Methotrexate] 20 mg PO WE 06/17/18 02/08/24 History Cholecalciferol [Vitamin D3 (25 5,000 unit PO DAILY 10/10/19 02/08/24 History Mcg = 1000 Iu)] Tofacitinib Citrate [Xeljanz Xr] 11 mg PO DAILY 12/03/20 02/08/24 History Triamcinolone 0.1% Cream [Kenalog 1 applicatio TOPICAL BID PRN #30 gm 05/19/22 1 Rx 0.1% Cream] Nystatin 100,000 Unit/gm Powd 1 applic TOPICAL BID 14 Days #30 gm 07/21/22 02/08/24 Rx [Mycostatin Powder] Venlafaxine HCl [Effexor] 25 mg PO DAILY 07/21/22 02/08/24 History ARIPiprazole [Abilify] 2 mg PO DAILY 02/08/24 02/08/24 History Doxepin HCl 3 mg PO HS 02/08/24 02/08/24 History Gabapentin [Neurontin] 300 mg PO BID 02/08/24 02/08/24 History clonazePAM [KlonoPIN] 0.5 mg PO DAILY 02/08/24 02/08/24 History Allergies Allergy/AdvReac Type Severity Reaction Status Date / Time Tetracyclines Allergy Rash/Hives Verified 02/08/24 16:18 Exam Vital Signs Temp Pulse Resp BP Pulse Ox 02/08/24 16:23 98.6 F 83 16 180/99 97 Intake and Output 02/08/24 02/08/24 02/08/24 06:59 14:59 22:59 Other: Weight 93.44 kg Height 5 feet 9 inches, weight 206 pounds, BMI 30.4. This is a well-developed well-nourished black female who is alert and oriented times 3 in no acute distress. ABDOMEN: 3+ bowel sounds, soft, mild generalized tenderness in the upper abdomen and moderate tenderness in the lower abdomen without rebound tenderness. There are no palpable masses. PELVIC EXAM: External genitalia appears normal. . Bimanual examination is negative for mass, but there is mild to moderate tenderness in the area of the bladder which feels full. Limited breast exam: The skin appears slightly excoriated directly in the line beneath the right breast greater on the medial aspect of the crease. There is minimal excoriation in the crease under the left breast. There is a slight erythema under both breasts. IMPRESSION: 1. 2-month history of abdominal cramping and pain with abdominal pressure. Differential diagnosis will include colonic and intestinal spasming with related diarrhea, other GI causes such as colitis, UTI, and less likely an ovarian neoplasm causing abdominal symptoms. 2. Erythema intertrigo beneath the breasts 3. Urinary urgency and frequency with a tender bladder on examination, possible cystitis UTI. 4. History of vulvar irritation and the patient is requesting to be put on Premarin vaginal cream for this since she is not taking oral ERT. PLAN: 1. Urine has been obtained by the midstream clean-catch and will be sent for urinalysis and urine culture. 2. I have recommended a pelvic ultrasound to rule out an ovarian possible cause for her abdominal pressure and pelvic symptoms. The order slip was given to the patient for this. My records indicate a total laparoscopic hysterectomy wi thout BSO, but she thinks ovaries may have been removed at the time of the hysterectomy. 3. Clotrimazole 1% cream twice daily beneath the breasts. She will try to keep the area clean and dry. 4. Premarin vaginal cream 1 g into the vagina 2 times weekly. Electronic prescriptions will be sent to [facility]. 5. I have advised her to continue to speak with her GI doctor regarding possibl e GI causes for her cramping pains and diarrhea. She understands that I do not think it is likely being caused by a gynecologic problem. 6. She can return in approximately 4 to 6 months for her annual well woman examination and mammogram and as needed.
== END ==
LOC: WWCWWP 16:05
PROVIDERS: ATTEND Obstetrics & Gynecology

== ENCOUNTER → 2024-05-03 | Outpatient (CLI) | payer MEDICARE ==
[2024-05-03 14:59] LABS: Basophils # (A) 0.04 X 10*3/uL (0.00-0.10); Basophils % (A) 0.6 %; Eosinophils # (A) 0.11 X 10*3/uL (0.04-0.35); Eosinophils % (A) 1.7 %; HCT 37.5 % (37.2-46.3); HGB 11.7 g/dL (12.0-15.0); Lymphocytes # (A) 2.08 X 10*3/uL (0.90-5.00); Lymphocytes % (A) 31.4 %; MCH 30.5 pg (27.0-32.0); MCHC 31.2 g/dL (32.0-37.0); MCV 97.9 FL (80.0-97.0); Mean Platelet Volume 10.6 FL (9.5-12.2); Monocytes # (A) 0.44 X 10*3/uL (0.20-1.00); Monocytes % (A) 6.6 %; NRBC Per 100 WBC 0.12 X 10*3/uL (0.00-0.01); Neutrophils # (A) 3.92 X 10*3/uL (1.80-7.70); Neutrophils % (A) 59.2 %; Platelet Count 322 X 10*3/uL (140-440); RBC 3.83 X 10*6/uL (4.10-5.20); WBC 6.62 X 10*3/uL (4.50-10.00)
[2024-05-03 15:22] LABS: ALT 29 U/L (8-44); AST 28 U/L (13-35); Albumin 4.2 g/dL (3.8-4.9); Alkaline Phosphatase 128 U/L (41-126); BUN/Creat Ratio 13.14 Ratio (12.00-20.00); Blood Urea Nitrogen 9.2 mg/dL (9.0-27.0); Calcium 9.8 mg/dL (8.7-10.3); Carbon Dioxide 27.8 mmol/L (21.6-31.8); Chloride 99 mmol/L (96-109); Chol/HDL Ratio 2.02 Ratio; Glucose 142 mg/dL (70-110); LDL Cholesterol,Calculated 60.5 mg/dL (0.0-131.0); Potassium 4.1 mmol/L (3.5-5.5); Sodium 138 mmol/L (135-145); Total Bilirubin 0.3 mg/dL (0.3-1.2); Total Protein 7.2 g/dL (6.2-8.2)
[2024-05-03 15:45] LABS: Erythrocyte Sedimentation Rate 23 mm/Hr (0-30)
== END | disposition home or self-care (01) ==
LOC: LABWHC1 11:05
PROVIDERS: ATTEND Internal Medicine Rheumatology
DX: M06.9 Rheumatoid arthritis, unspecified (principal)
CPT/HCPCS: 36415; 80053; 80061; 83036; 85025; 85652; 86140

== ENCOUNTER 2024-06-30 06:21 | Day surgery (SDC) | payer MEDICARE, OTHER ==
[~2024-06-30 06:21] MED LIST changes: -LACTATED RINGERS 1,000 ML IV SCH; +LIDOCAINE 1% (10MG/ML) FOR IV START INTRADERMA PRN; -LIDOCAINE 1% 20 ML VIAL (10MG/ML) FOR IV START INTRADERMA PRN
[2024-06-30] MEDS: LACTATED RINGERS 1,000 ML IV SCH (07:09)
[2024-06-30] MEDS: IV FLUID CONTINUATION 1,000 ML IV ONE (07:09)
[2024-06-30 07:11] VITALS: TEMP 98
[2024-06-30 07:15] LABS: Glucose,Whole Blood 123 mg/dL (70-110)
[2024-06-30] MEDS ORDERED: LIDOCAINE 1% INJ 10MG/ML (20 ML MDV) ONE (07:24)
[2024-06-30] MEDS ORDERED: PROPOFOL 10 MG/ML 20 ML VIAL IV ONE (07:24)
--- NOTE | 2024-06-30 07:48 | P.PCN ---
Date of Procedure: 06/30/24 Procedure(s) Performed: Brief history: Patient is a pleasant 54-year-old white female scheduled for an elective upper endoscopy as well as colonoscopy as a part of evaluation of GERD/change in bowel habits. Procedure performed: Esophagogastroduodenoscopy with biopsy Colonoscopy with biopsy Preoperative diagnosis: GERD Change in bowel habits Anesthesia: [facility] [place] Procedure: After informed consent was obtained from the patient was brought into the endoscopy unit and IV sedation was administered by anesthesia under continuous monitoring. Initially upper endoscopy was done. The Olympus GF 160 video endoscope was inserted inserted into the mouth and esophagus intubated without any difficulty and was gradually advanced into the stomach and duodenum and carefully examined. The bulb and second part of the duodenum appeared normal. Biopsies were done from the duodenum rule out celiac disease. The scope was then withdrawn into the stomach adequately insufflated with air and upon careful examination the antrum had mild patchy areas of erythema consistent gastritis and biopsies were done from this area. Mucosa d body, cardia and fundus appeared normal. The scope was then withdrawn into the esophagus. The GE junction was located at 40 cm to the incisors. It appeared regular with no erythema erosions or ulcerations. Rest of the esophagus appeared normal. Patient tolerated the procedure well. At this time the patient continued to remain sedation. Initial digital rectal examination was normal. Olympus CF 160 video colonoscope was then inserted into the rectum and gradually advanced to the cecum without any difficulty. Careful examination was performed as the scope was gradually being withdrawn. The prep was excellent. The cecum, ascending colon, transverse colon, descending colon, sigmoid colon and rectum appeared normal. In the rectum there was a 5 mm polyp that was removed by cold biopsy. Scattered left-sided diverticulosis. Retroflexion was performed in the rectum and no lesions were noted. Patient tolerated the procedure well. Impression: 1. Upper endoscopy revealed mild antral gastritis but no evidence of esophagitis or peptic ulcer disease 2. Colonoscopy revealed a 5 mm distal rectal polyp status post cold biopsy. Scattered left-sided diverticulosis. Recommendations: Findings of this examination were discussed with the patient as well as her family. She was advised to follow-up with the biopsy results. If the biopsy reveals adenoma he can have repeat colonoscopy in 5 years.
[2024-06-30 07:59] VITALS: PULSE 96; RESP 16
[2024-06-30 08:19] VITALS: BP 137/78
== END 2024-06-30 08:31 | disposition home or self-care (01) ==
LOC: ORWHC2ENDO 06:21
PROVIDERS: ATTEND Internal Medicine Gastroenterology
DX: K29.50 Unspecified chronic gastritis without bleeding (principal); K62.1 Rectal polyp; K57.30 Diverticulosis of large intestine without perforation or abscess without bleeding; K21.9 Gastro-esophageal reflux disease without esophagitis; I11.0 Hypertensive heart disease with heart failure; I50.9 Heart failure, unspecified; E78.5 Hyperlipidemia, unspecified; E07.9 Disorder of thyroid, unspecified; E11.40 Type 2 diabetes mellitus with diabetic neuropathy, unspecified; F32.A Depression, unspecified; F41.9 Anxiety disorder, unspecified; M06.9 Rheumatoid arthritis, unspecified; M79.7 Fibromyalgia; Z88.8 Allergy status to other drugs, medicaments and biological substances; Z87.891 Personal history of nicotine dependence; Z79.02 Long term (current) use of antithrombotics/antiplatelets; Z79.899 Other long term (current) drug therapy
CPT/HCPCS: 45380; 43239; J2003; J2704; 88305